=== PATIENT | male | born 1940 | race Caucasian/White ===

== ENCOUNTER 2017-08-05 16:16 | Inpatient (IN) | payer MEDICARE, OTHER ==
[2017-08-05] VITALS (8 sets, daily range): BP systolic 123–156; BP diastolic 55–71
[~2017-08-05] VITALS: Ht 190.5 cm; Wt 128.9 kg
[~2017-08-05 16:16] MED LIST: ATOR40TA PO; DOCU-109 PO; FENO134C PO; FENO135C PO; GLIM4TAB2 PO; LINA5TAB4 PO; LIPITOR80 MG PO; OLME1TAB23 PO; Oxycodone Hcl/Acetaminophen PO; PIOG30TA41 PO
[2017-08-05] MEDS ORDERED: IV NORMAL SALINE 1000ML BAG 1,000 ML IV SCH ×2 (16:55→18:06)
[2017-08-05] MEDS ORDERED: methylPREDNISolone SOD SUCC PF 125 MG/2 ML VIAL. IV ONE (17:00)
[2017-08-05] MEDS ORDERED: ACETAMINOPHEN 325 MG TABLET. PO ONE (17:00)
[2017-08-05] MEDS ORDERED: 0.9 % SODIUM CHLORIDE 10 ML DISP.SYRIN. IV ONE (17:00)
[2017-08-05] MEDS ORDERED: AZITHROMYCIN 500 MG in IV NORMAL SALINE 250ML 250 ML IV ONE (17:00)
[2017-08-05] MEDS ORDERED: IPRATRPIUM/ALBUTEROL 0.5/2.5MG 3 ML NEBU. NEB ONE (17:00)
[2017-08-05 17:14] LABS: BASO # 0.1 x10^3/uL (0.0-0.2); BASO % 1 % (0-3); EOS % 1 % (0-3); HEMATOCRIT 25.1 % (39.0-53.0); HEMOGLOBIN 8.4 g/dL (13.0-17.5); LYMPH # 0.8 x10^3/uL (1.0-4.8); LYMPH % 6 % (24-48); MEAN CORPUSCULAR HEMOGLOBIN 31 pg (25-35); MEAN CORPUSCULAR HGB CONC 33 g/dL (31-37); MEAN CORPUSCULAR VOLUME 94 fL (79-100); MONO % 7 % (0-9); NEUT % 86 % (31-73); PLATELET COUNT 405 x10^3/uL (140-400); RED BLOOD COUNT 2.68 x10^6/uL (4.30-5.70); WHITE BLOOD COUNT 12.6 x10^3/uL (4.0-11.0)
[2017-08-05] MEDS ORDERED: AZITHRMYCN 500MG IVPB FOR OMNI 250 ML IV ONE (17:15)
[2017-08-05 17:19] LABS: BILIRUBIN,URINE SMALL (NEG); GLUCOSE,URINE NEGATIVE (NEG); NITRITE,URINE NEGATIVE (NEG); PROTEIN,URINE 100 mg/dL (NEG-TRACE)
[2017-08-05 17:29] LABS: CALCIUM 8.4 mg/dL (8.5-10.1); CREATININE 2.6 mg/dL (0.7-1.3); POTASSIUM 5.8 mmol/L (3.5-5.1)
[2017-08-05 17:38] LABS: ALBUMIN 1.6 g/dL (3.4-5.0); DIRECT BILIRUBIN 0.4 mg/dL (0.0-0.2); MAGNESIUM 2.8 mg/dL (1.8-2.4); TOTAL BILIRUBIN 1.1 mg/dL (0.2-1.0); TOTAL PROTEIN 6.5 g/dL (6.4-8.2)
[2017-08-05 17:42] LABS: % EOS 1 % (0-5); CREATINE KINASE 122 U/L (39-308); PLT ESTIMATE ADEQUATE (ADEQUATE)
[2017-08-05 17:42] LABS: BACTERIA,URINE FEW /HPF (0-FEW); RBC,URINE >40 /HPF (0-2); WBC,URINE OCC /HPF (0-4)
[2017-08-05 17:43] LABS: ANISOCYTOSIS SLIGHT; HYPOCHROMIA SLIGHT; TOXIC GRANULATION SLIGHT
[2017-08-05 17:48] LABS: CKMB MASS < 0.5 ng/mL (0.0-3.6)
--- NOTE | 2017-08-05 17:49 | PHYS DOC ---
Past Medical History Past Medical History: A-Fib, CHF, Diabetes-Type II, High Cholesterol, Hypertension, Renal Failure Additional Past Medical Histor: right shoulder dislocation Past Surgical History: Appendectomy, Other Additional Past Surgical Histo: right shoulder surgery, hernia repair x 2 Alcohol Use: None Drug Use: None Adult General Chief Complaint Chief Complaint: SHORTNESS OF BREATH [facility] HPI Patient is a pleasant 76-year-old gentleman with history of, and chronic systolic and diastolic congestive [place], acute renal failure after an unspecified fall, hyperlipidemia, hypertension, prior shoulder dislocation of the right, or excisional age or fibrillation, diabetes, was seen and admitted to our facility for pain management after a fall down 12 steps. He was recently transferred to help her sort of [place] sniff, when today he began having increasing respiratory distress and they did a chest x-ray diagnosed him with a right lower lobe pneumonia. He denies any chest pain only increased shortness of breath with a low-grade subjective fever, productive cough. He denies any difficulty swallowing, change in voice, he just feels hot and fatigue. He denies any abdominal pain, increasing swelling of his lower legs, he is having some aches and pains in his back after his fall and transfers with movements. Review of Systems Review of Systems Constitutional: He has had fevers and chills. Eyes: Denies change in visual acuity, redness, or eye pain [] HENT: He has had nasal congestion and mild sore throat with cough. Respiratory: He has had productive cough or shortness of breath Cardiovascular: No additional information not addressed in HPI [] GI: Denies abdominal pain, nausea, vomiting, bloody stools or diarrhea [] : Denies dysuria or hematuria [] Musculoskeletal: She has chronic lower back pain and bilateral lower joint pain and ankles knees after the fall. Integument: Denies rash or skin lesions [] Neurologic: Denies headache, focal weakness or sensory changes [] Current Medications Current Medications Current Medications Medications (Trade) Dose Ordered Sig/Meghana Start Time Stop Time Status Last Admin Dose Admin Acetaminophen (Tylenol) 650 mg 1X ONCE 08/05/17 17:00 08/05/17 17:01 DC 08/05/17 17:27 650 MG Albuterol/ Ipratropium (Duoneb) 3 ml 1X ONCE 08/05/17 17:00 08/05/17 17:01 DC 08/05/17 17:17 3 ML Azithromycin 250 ml @ 250 mls/hr 1X ONCE 08/05/17 17:15 08/05/17 18:14 Azithromycin 500 mg/Sodium Chloride 250 ml @ 250 mls/hr 1X ONCE 08/05/17 17:00 08/05/17 17:59 UNV Ceftriaxone Sodium 1 gm/ Sodium Chloride 50 ml @ 100 mls/hr 1X ONCE 08/05/17 17:00 08/05/17 17:29 UNV Ceftriaxone Sodium 50 ml @ 100 mls/hr 1X ONCE 08/05/17 17:15 08/05/17 17:44 DC 08/05/17 17:30 100 MLS/HR Methylprednisolone Sodium Succinate (SOLU-Medrol 125MG VIAL) 125 mg 1X ONCE 08/05/17 17:00 08/05/17 17:01 DC 08/05/17 17:25 125 MG Sodium Chloride 1,000 ml @ 1,000 mls/hr Q1H 08/05/17 16:55 08/05/17 17:54 DC 08/05/17 17:22 1,000 MLS/HR Sodium Chloride (Normal Saline Flush) 10 ml 1X ONCE 08/05/17 17:00 08/05/17 17:01 DC Allergies Allergies Allergies Coded Allergies Type Severity Reaction Last Updated Verified simvastatin Allergy Severe mouth swelling 04/14/14 Yes sitagliptin phosphate Allergy Severe renal dysfunction 04/14/14 Yes Physical Exam Physical Exam Vital signs recorded on the chart patient noted to be hypertensive, tachypnea, hypoxic at 81 on room air 95 on 5 L nasal cannula's Constitutional: She is obese but well-nourished in moderate distress with mild to moderate tachypnea no diaphoresis. HENT: Normocephalic, atraumatic, bilateral external ears normal, dry mucous membranes no oral exudates, nose normal. [] Eyes: PERRLA, EOMI, conjunctiva normal, no discharge. [] Neck: Normal range of motion, no tenderness, supple, no stridor. [] Cardiovascular: Patient is mildly tachycardic Murmurs gallops or rubs. Lungs & Thorax: She has decreased breath sounds right lower base with coarse rhonchi. Abdomen: Bowel sounds normal, soft, no tenderness, no masses, no pulsatile masses. [] Skin: Warm, dry, no erythema, no rash. [] Back: Unable to assess secondary discomfort Extremities: Tenderness throughout the lower extremities bilaterally secondary to contusions and abrasions. Neurologic: Alert and oriented X 3, normal motor function, normal sensory function, no focal deficits noted. [] Psychologic: Affect normal, judgement normal, mood normal. [] Current Patient Data Vital Signs Vital Signs Date Time Temp Pulse Resp B/P (MAP) Pulse Ox O2 Delivery O2 Flow Rate FiO2 08/05/17 17:18 97 Nasal Cannula 5.0 08/05/17 17:09 69 36 131/61 (84) 08/05/17 16:32 99.8 99.8 Lab Values Laboratory Tests Test 08/05/17 17:05 08/05/17 17:10 White Blood Count 12.6 x10^3/uL (4.0-11.0) H Red Blood Count 2.68 x10^6/uL (4.30-5.70) L Hemoglobin 8.4 g/dL (13.0-17.5) L Hematocrit 25.1 % (39.0-53.0) L Mean Corpuscular Volume 94 fL (79-100) Mean Corpuscular Hemoglobin 31 pg (25-35) Mean Corpuscular Hemoglobin Concent 33 g/dL (31-37) Red Cell Distribution Width 15.0 % (11.5-14.5) H Platelet Count 405 x10^3/uL (140-400) H Neutrophils (%) (Auto) 86 % (31-73) H Lymphocytes (%) (Auto) 6 % (24-48) L Monocytes (%) (Auto) 7 % (0-9) Eosinophils (%) (Auto) 1 % (0-3) Basophils (%) (Auto) 1 % (0-3) Neutrophils # (Auto) 10.9 x10^3uL (1.8-7.7) H Lymphocytes # (Auto) 0.8 x10^3/uL (1.0-4.8) L Monocytes # (Auto) 0.8 x10^3/uL (0.0-1.1) Eosinophils # (Auto) 0.1 x10^3/uL (0.0-0.7) Basophils # (Auto) 0.1 x10^3/uL (0.0-0.2) Segmented Neutrophils % 86 % (35-66) H Band Neutrophils % 3 % (0-9) Lymphocytes % 4 % (24-48) L Monocytes % 5 % (0-10) Eosinophils % 1 % (0-5) Myelocytes % 1 % (0-0) H Toxic Granulation Slight Platelet Estimate Adequate (ADEQUATE) Hypochromasia Slight Anisocytosis Slight Sodium Level 138 mmol/L (136-145) Potassium Level 5.8 mmol/L (3.5-5.1) H Chloride Level 101 mmol/L (98-107) Carbon Dioxide Level 34 mmol/L (21-32) H Anion Gap 3 (6-14) L Blood Urea Nitrogen 120 mg/dL (8-26) H Creatinine 2.6 mg/dL (0.7-1.3) H Estimated GFR (Cockcroft-Gault) 24.0 Glucose Level 259 mg/dL (70-99) H Lactic Acid Level 1.8 mmol/L (0.4-2.0) Calcium Level 8.4 mg/dL (8.5-10.1) L Magnesium Level 2.8 mg/dL (1.8-2.4) H Total Bilirubin 1.1 mg/dL (0.2-1.0) H Direct Bilirubin 0.4 mg/dL (0.0-0.2) H Aspartate Amino Transferase (AST) 45 U/L (15-37) H Alanine Aminotransferase (ALT) 26 U/L (16-63) Alkaline Phosphatase 76 U/L (46-116) Creatine Kinase 122 U/L (39-308) Creatine Kinase MB (Mass) < 0.5 ng/mL (0.0-3.6) Creatine Kinase MB Relative Index 0.4 % (0-4) Troponin I Quantitative 0.038 ng/mL (0.000-0.055) TG-Kob-E-Type Natriuretic Peptide 5157 pg/mL (0-449) H Total Protein 6.5 g/dL (6.4-8.2) Albumin 1.6 g/dL (3.4-5.0) L Lipase 160 U/L (73-393) Thyroid Stimulating Hormone (TSH) 3.670 uIU/mL (0.358-3.74) Urine Collection Type U cath Urine Color [place] Urine Clarity Turbid Urine pH 5.0 Urine Specific [place] 1.020 Urine Protein 100 mg/dL (NEG-TRACE) Urine Glucose (UA) Negative mg/dL (NEG) Urine Ketones (Stick) Negative mg/dL (NEG) Urine Blood Large (NEG) Urine Nitrite Negative (NEG) Urine Bilirubin Small (NEG) Urine Urobilinogen Dipstick 1.0 mg/dL (0.2 mg/dL) Urine Leukocyte Esterase Small (NEG) Urine RBC >40 /HPF (0-2) Urine WBC Occ /HPF (0-4) Urine Amorphous Sediment Present /HPF Urine Bacteria Few /HPF (0-FEW) Urine Hyaline Casts Moderate /HPF Laboratory Tests 08/05/17 17:05 Laboratory Tests 08/05/17 17:05 EKG EKG []EKG timed 1656 demonstrates P Aliza QRS normal sinus rhythm. Interval is probably about 180 ms there is with 90 QTC is 477 which is mildly elongated patient is low voltage throughout no inconsistent with acute hyperkalemia or no obvious peaked T's. Radiology/Procedures Radiology/Procedures []AP upright chest film demonstrates patchy infiltrate in the left lower base right lower base and some mild cephalization. The concern is actually for both congestive heart failure and possible pulmonary infiltrate. Get an elevated white count subjective fevers and chills and dyspnea I believe this is an infectious etiology. Course & Med Decision Making Course & Med Decision Making Pertinent Labs and Imaging studies reviewed. (See chart for details) Differential diagnosis: Acute myocardial ischemia, heart failure, cardiac tamponade, bronchospasm, pulmonary embolism, pneumothorax, pulmonary infection i.e. bronchitis or pneumonia, upper airway obstruction, anaphylaxis, aspiration , psychogenic, pulmonary contusion, toxidrome, pneumomediastinum, noncardiogenic pulmonary edema or ARDS, COPD, tuberculosis, cystic fibrosis, asthma, high altitude pulmonary edema, valvular dysfunction, cardiac dysrhythmia , stroke, neuromuscular diseases like myasthenia gravis gravis, ALS, Guillain- Mitchell syndrome, metabolic acidosis to include diabetic ketoacidosis, sepsis, and obstructive disorders like massive obesity was considered upon arrival based on history of fever productive cough and recent hospitalization. As well as diagnosis of pneumonia on chest x-ray from prior evaluation I believe the patient is suffering from increased hypoxia secondary to that. The concern is patient's been immobile secondary to trauma or last days this puts him at increased risk for DVT and PE in the lungs. Patient unfortunately has a history of congestive heart failure. Given the fact that his had history of heart failure and fluid overload at this time I will give him fluids and put him in the ICU to closely monitor his clinical status to ensure that he does not need to be intubated emergently secondary to hypoxia secondary to fluid overload. In the interim patient will receive IV antibiotics and antiemetics appropriate for pneumonia. She will be admitted to the ICU for close cardiology evaluation and pulmonary evaluation. Patient fallen 2 weeks ago as been debilitated since. His sons are at bedside and I discussed symptoms of my concerns and plan for admission. Time is now 5:30 since the patient has improved with DuoNeb secured in the emergency for him as well as Solu-Medrol fluids 1 L and antibiotics. My concern again is congestive heart failure. Patient's hypoxia and dyspnea have improved significantly with fluids antiemetics and treatments provided already. Patient is ready gotten blood cultures done and a boxer on board and patient's lactic acid 1.8. I will continue to hydrate this patient with not only her fluids here in the emergency department the intent is to give him 3 L of fluid over 7 hours. And watch his clinical which very closely for signs of increasing hypoxia work of breathing in the ICU. We will consult pulmonology as well as cardiology to help manage his fluids and antibiotics to ensure that we do not overwhelm his cardiac ability to handle the fluid load. The patient is hyperkalemic with a potassium of 5.8 there are no EKG changes concerning for hyperkalemia. Given fluids over the next 2 hours patient's potassium should be diluted and we will repeat it in approximately 3 hours. Patient will be also given a small dose of Lasix to help promote more fluid mobilization. [] Spa Concierge note:Dr. richardson Spa Concierge called at of the service 5:32 PM Consult called back at Discussed the case I presented and they agreed with admission. Time of acceptance at 5:32 pm "I have assessed this patient clinically and believe that their condition requires an admission to the hospital. After consulting the admitting physician about this case, they have asked that I admit this patient to their service as an inpatient based on the clinical presentation and my impression." Critical Care: The high probability of sudden, clinically significant deterioration in the patient's condition required the highest level of my preparedness to intervene urgently. The services I provided to this patient were to treat and/or prevent clinically significant deterioration. Services included the following: chart data review, reviewing nursing notes and/or old charts, documentation time, treasury management sales consultant collaboration regarding findings and treatment options, medication orders and management, direct patient care, vital sign assessments and ordering, interpreting and reviewing diagnostic studies/ lab tests. Aggregate critical care time includes only time during which I was engaged in work directly related to the patient's care, as described above, whether at the bedside or elsewhere in the Emergency Department. It did not include time spent performing other reported procedures or the services of nurses or physician assistants. Dragon Disclaimer Dragon Disclaimer This electronic medical record was generated, in whole or in part, using a voice recognition dictation system. Departure Departure Impression: Primary Impression: Pneumonia Additional Impressions: Renal insufficiency Anemia Leukocytosis Dyspnea Fever Hyperkalemia Disposition: 09 ADMITTED INPATIENT Admitting Physician: Naty Richardson Condition: GUARDED Referrals: MATT AMBROSE (PCP) Problem Qualifiers STEWART CHARLES MD Aug 05, 2017 17:49
[2017-08-05] MEDS ORDERED: ONDANSETRON PF 4 MG/2 ML VIAL. IV PRN (18:15)
[2017-08-05] MEDS ORDERED: 0.9 % SODIUM CHLORIDE 10 ML DISP.SYRIN. IV PRN (18:15)
[2017-08-05] MEDS ORDERED: fentaNYL PF VIAL 100 MCG/2 ML VIAL IV PRN (18:15)
[2017-08-05] MEDS ORDERED: FUROSEMIDE 40 MG/4 ML VIAL. IVP ONE (18:15)
[2017-08-05] MEDS ORDERED: ACETAMINOPHEN 325 MG TABLET. PO PRN (18:15)
--- NOTE | 2017-08-05 18:49 | EKG ---
[facility] [address] [place] [address] Test Date: 2017-08-05 Test Time: 16:56:47 Pat Name: JANE FRANCO Department: Room: Gender: M Health Policy Nurse: : 1940 Requested By: STEWART CHARLES Order Number: [id number] Reading MD: Measurements Intervals [place] Rate: 68 P: SD: QRS: -20 QRSD: 90 T: 63 QT: 444 QTc: 477 Interpretive Statements IRREGULAR RHYTHM, NO P-WAVE FOUND LEFTWARD AXIS R-S TRANSITION ZONE IN V LEADS DISPLACED TO THE LEFT S1,S2,S3 PATTERN PROLONGED QT NO SPECIFIC ECG ABNORMALITIES RI6.01 No previous ECG available for comparison
[2017-08-05 18:51] LABS: OBC FLU VALID
--- NOTE | 2017-08-05 22:18 | RAD ---
NUCLEAR MEDICINE VENTILATION PERFUSION SCAN History: Shortness of air with recent trauma. Comparison: AP chest, earlier same day. Technique: Ventilation portion performed after inhalation of 18 mCi xenon-133 gas. Anterior and posterior projection initial breath-hold, equilibrium, and washout phase images acquired. Perfusion portion performed after intravenous administration of 5 mCi Technetium 99m MAA. Multiple projection planar images of the lungs were obtained. Findings: Ventilation images are relatively homogeneous. Air trapping is seen in the left lung on the washout phase images. At the beginning of perfusion imaging, patient acutely desaturated and imaging was discontinued and patient was returned to the ICU. A single anterior projection perfusion image is acquired. Therefore perfusion imaging is extremely limited. On the anterior projection, no obvious mismatched defect is identified. IMPRESSION: 1. Limited exam due to termination of perfusion imaging. On single anterior projection perfusion image, an obvious mismatch perfusion defect is not seen. 2. There is evidence of air trapping in the left lung. Electronically signed by: Hesham Fleming MD (08/05/2017 10:15 PM) [id number]
[2017-08-05] MEDS ORDERED: VANCOMYCIN PER PHARMACY MC PRN (23:00)
[2017-08-05] MEDS ORDERED: POLYETHYLENE GLYCOL 3350 17 GM PACKET. PO PRN (23:00)
[2017-08-05] MEDS ORDERED: PIP/TAZO PER PHARMACY MC PRN (23:00)
[2017-08-05] MEDS ORDERED: DOCUSATE SODIUM 100 MG CAPSULE. PO PRN (23:00)
--- NOTE | 2017-08-05 23:00 | PDOC1 ---
History and Physical Date of Admission Date of Admission DATE: 08/05/17 TIME: 22:48 Identification/Chief Complaint Chief Complaint pneumonia Problems: Source Source: Chart review, Patient History of Present Illness History of Present Illness Mr. Watkins is a pleasant 76-year-old gentleman recent discharge from our facility for pain management after a fall down 12 steps. he has been at [facility], and brought to ER today, increasing respiratory distress. Acute hypoxia and tachypnea that he did not have before. CXR showed new right lower lobe pneumonia. marked fatigue and weakness today, cannot sit up full, hot and tired. He has slight cough, does feel dyspneic and has new hypoxia, on Past Medical History Past Medical History chronic systolic and diastolic congestive heart, acute renal failure after an unspecified fall, hyperlipidemia, hypertension, prior shoulder dislocation of the right, atrial fibrillation, diabetes, Cardiovascular: HTN, Hyperlipidemia Pulmonary: No pertinent hx CENTRAL NERVOUS SYSTEM: Other GI: No pertinent hx Heme/Onc: Cancer Hepatobiliary: No pertinent hx Psych: No pertinent hx Musculoskeletal: Osteoarthritis Rheumatologic: No pertinent hx Infectious disease: No pertinent hx Renal/: Prostate Ca. 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 Family History: Diabetes Social History Smoke: No ALCOHOL: none Drugs: None Current Problem List Problem List Problems Medical Problems: (1) Anemia Status: Acute (2) Dyspnea Status: Acute (3) Fever Status: Acute (4) Hyperkalemia Status: Acute (5) Leukocytosis Status: Acute (6) Renal insufficiency Status: Acute Problems: Current Medications Current Medications Current Medications Sodium Chloride (Normal Saline Flush) 10 ml 1X ONCE IV ; Start 08/05/17 at 17: 00; Stop 08/05/17 at 17:01; Status DC Sodium Chloride 1,000 ml @ 1,000 mls/hr Q1H IV Last administered on t 17:22; Start 08/05/17 at 16:55; Stop 08/05/17 at 17:54; Status DC Albuterol/ Ipratropium (Duoneb) 3 ml 1X ONCE NEB Last administered on t 17:17; Start 08/05/17 at 17:00; Stop 08/05/17 at 17:01; Status DC Methylprednisolone Sodium Succinate (SOLU-Medrol 125MG VIAL) 125 mg 1X ONCE IV Last administered on 08/05/17 17:25; Start 08/05/17 at 17:00; Stop at 17:01; Status DC Acetaminophen (Tylenol) 650 mg 1X ONCE PO Last administered on 08/05/17 17: 27; Start 08/05/17 at 17:00; Stop 08/05/17 at 17:01; Status DC Ceftriaxone Sodium 1 gm/ Sodium Chloride 50 ml @ 100 mls/hr 1X ONCE IV ; Start 08/05/17 at 17:00; Stop 08/05/17 at 17:29; Status UNV Azithromycin 500 mg/Sodium Chloride 250 ml @ 250 mls/hr 1X ONCE IV ; Start at 17:00; Stop 08/05/17 at 17:59; Status UNV Azithromycin 250 ml @ 250 mls/hr 1X ONCE IV Last administered on 08/05/17 18:53; Start 08/05/17 at 17:15; Stop 08/05/17 at 18:14; Status DC Ceftriaxone Sodium 50 ml @ 100 mls/hr 1X ONCE IV Last administered on 17:30; Start 08/05/17 at 17:15; Stop 08/05/17 at 17:44; Status DC Ondansetron HCl (Zofran) 4 mg PRN Q8HRS PRN IV NAUSEA/VOMITING; Start at 18:15; Stop 08/06/17 at 18:14 Fentanyl Citrate (Fentanyl 2ml Vial) 50 mcg PRN Q1HR PRN IV PAIN; Start at 18:15; Stop 08/06/17 at 18:14 Acetaminophen (Tylenol) 650 mg PRN Q4HRS PRN PO FEVER; Start 08/05/17 at 18:15 ; Stop 08/06/17 at 18:14 Furosemide (Lasix) 40 mg 1X ONCE IVP Last administered on 08/05/17 18:50; Start 08/05/17 at 18:15; Stop 08/05/17 at 18:16; Status DC Sodium Chloride 1,000 ml @ 1,000 mls/hr Q1H IV Last administered on 21:10; Start 08/05/17 at 18:06; Stop 08/05/17 at 19:05; Status DC Sodium Chloride (Normal Saline Flush) 10 ml QSHIFT PRN IV AFTER MEDS AND BLOOD DRAWS; Start 08/05/17 at 18:15 Enoxaparin Sodium (Lovenox 120mg Syringe) 120 mg 1X ONCE SQ Last administered on 08/05/17t 18:50; Start 08/05/17 at 18:30; Stop 08/05/17 at 18:31; Status DC Active Scripts Active Reported Lipitor (Atorvastatin Calcium) 80 Mg Tablet 80 Mg PO HS Trilipix (Fenofibric Acid (Choline)) 135 Mg Capsule.dr 135 Mg PO DAILY Tradjenta (Linagliptin) 5 Mg Tablet 5 Mg PO DAILY Actos (Pioglitazone Hcl) 30 Mg Tablet 30 Mg PO DAILY Benicar Hct 40-12.5 Mg Tablet (Olmesartan/Hydrochlorothiazide) 1 Each Tablet 1 Each PO DAILY Allergies Allergies: Coded Allergies: simvastatin (Verified Allergy, Severe, mouth swelling, 04/14/14) sitagliptin phosphate (Verified Allergy, Severe, renal dysfunction, ) ROS General: YES: Chills, Fatigue, Malaise PSYCHOLOGICAL ROS: No: Anxiety, Behavioral Disorder, Concentration difficultie , Decreased libido, Depression, Disorientation, Hallucinations, Hostility, Irritablity, Memory difficulties, Mood Swings, Obsessive thoughts, Other Eyes: No Blurry vision, No Decreased vision, No Double vision, No Dry eyes, No Eye Pain, No Itchy Eyes, No Loss of vision, No Photophobia, No Scotomata, No Uses contacts, No Uses glasses, No Other HEENT: YES: Heacaches, No: Visual Changes, Hearing change, Nasal congestion, Nasal discharge, Oral lesions, Sinus pain, Sore Throat, Epistaxis, Sneezing, Snoring, Tinnitus, Vertigo, Vocal changes, Other Respiratory: YES: Shortness of breath, Tachypnea, Other, No: Cough, Hemoptysis, Orthopnea, Pleuritic Pain, SOB with excertion, Sputum Changes, Stridor, Wheezing Cardiovascular: No Chest Pain, No Palpitations, No Orthopnea, No Paroxysmal Noc. Dyspnea, No Edema, No Lt Headedness, No Other Gastrointestinal: No Nausea, No Vomiting, No Abdominal Pain, No Diarrhea, No Constipation, No Melena, No Hematochezia, No Other Genitourinary: No Dysuria, No Frequency, No Incontinence, No Hematuria, No Retention, No Discharge, No Urgency, No Pain, No Flank Pain, No Other, No , No , No , No , No , No , No Musculoskeletal: Yes Gait Disturbance, Yes Joint Pain, Yes Joint Stiffness, Yes Joint Swelling, Yes Muscle Pain, No Muscular Weakness, No Pain In:, No Swelling In:, No Other Neurological: Yes Gait Disturbance, No Behavorial Changes, No Bowel/Bladder ControlChng, No Confusion, No Dizziness, No Headaches, No Impaired Coord/balance, No Memory Loss, No Numbness/ Tingling, No Seizures, No Speech Problems, No Tremors, No Visual Changes, No Weakness, No Other Skin: Yes Dry Skin, No Eczema, No Hair Changes, No Lumps, No Mole Changes, No Mottling, No Nail Changes, No Pruritus, No Rash, No Skin Lesion Changes, No Other, No Acne Physical Exam General: Alert, Oriented X3, Cooperative, mild distress HEENT: Atraumatic, Other (bleeding from an infected tooth RU molar) Lungs: Other (tachypnea, rales, limited vol due to pain) Heart: S1S2, no murmurs Abdomen: Normal bowel sounds, Soft (obese, no sounds) Extremities: No cyanosis, No edema, Normal pulses Skin: No rashes, No significant lesion Neuro: Normal speech, Normal tone, Cranial nerves 3-12 NL Psych/Mental Status: Mood NL Vitals Vitals Vital Signs Date Time Temp Pulse Resp B/P (MAP) Pulse Ox O2 Delivery O2 Flow Rate FiO2 08/05/17 22:20 98.3 58 27 142/70 (94) 95 Nasal Cannula 5.0 98.3 Labs Labs Laboratory Tests Test 08/05/17 17:05 08/05/17 17:10 08/05/17 18:10 08/05/17 20:00 White Blood Count 12.6 x10^3/uL (4.0-11.0) Red Blood Count 2.68 x10^6/uL (4.30-5.70) Hemoglobin 8.4 g/dL (13.0-17.5) Hematocrit 25.1 % (39.0-53.0) Mean Corpuscular Volume 94 fL (79-100) Mean Corpuscular Hemoglobin 31 pg (25-35) Mean Corpuscular Hemoglobin Concent 33 g/dL (31-37) Red Cell Distribution Width 15.0 % (11.5-14.5) Platelet Count 405 x10^3/uL (140-400) Neutrophils (%) (Auto) 86 % (31-73) Lymphocytes (%) (Auto) 6 % (24-48) Monocytes (%) (Auto) 7 % (0-9) Eosinophils (%) (Auto) 1 % (0-3) Basophils (%) (Auto) 1 % (0-3) Neutrophils # (Auto) 10.9 x10^3uL (1.8-7.7) Lymphocytes # (Auto) 0.8 x10^3/uL (1.0-4.8) Monocytes # (Auto) 0.8 x10^3/uL (0.0-1.1) Eosinophils # (Auto) 0.1 x10^3/uL (0.0-0.7) Basophils # (Auto) 0.1 x10^3/uL (0.0-0.2) Segmented Neutrophils % 86 % (35-66) Band Neutrophils % 3 % (0-9) Lymphocytes % 4 % (24-48) Monocytes % 5 % (0-10) Eosinophils % 1 % (0-5) Myelocytes % 1 % (0-0) Toxic Granulation Slight Platelet Estimate Adequate (ADEQUATE) Hypochromasia Slight Anisocytosis Slight Sodium Level 138 mmol/L (136-145) Potassium Level 5.8 mmol/L (3.5-5.1) Chloride Level 101 mmol/L (98-107) Carbon Dioxide Level 34 mmol/L (21-32) Anion Gap 3 (6-14) Blood Urea Nitrogen 120 mg/dL (8-26) Creatinine 2.6 mg/dL (0.7-1.3) Estimated GFR (Cockcroft-Gault) 24.0 Glucose Level 259 mg/dL (70-99) Lactic Acid Level 1.8 mmol/L (0.4-2.0) 1.0 mmol/L (0.4-2.0) Calcium Level 8.4 mg/dL (8.5-10.1) Magnesium Level 2.8 mg/dL (1.8-2.4) Total Bilirubin 1.1 mg/dL (0.2-1.0) Direct Bilirubin 0.4 mg/dL (0.0-0.2) Aspartate Amino Transf (AST/SGOT) 45 U/L (15-37) Alanine Aminotransferase (ALT/SGPT) 26 U/L (16-63) Alkaline Phosphatase 76 U/L (46-116) Creatine Kinase 122 U/L (39-308) Creatine Kinase MB (Mass) < 0.5 ng/mL (0.0-3.6) Creatine Kinase MB Relative Index 0.4 % (0-4) Troponin I Quantitative 0.038 ng/mL (0.000-0.055) KS-Ify-I-Type Natriuretic Peptide 5157 pg/mL (0-449) Total Protein 6.5 g/dL (6.4-8.2) Albumin 1.6 g/dL (3.4-5.0) Lipase 160 U/L (73-393) Thyroid Stimulating Hormone (TSH) 3.670 uIU/mL (0.358-3.74) Urine Collection Type U cath Urine Color [place] Urine Clarity Turbid Urine pH 5.0 Urine Specific [place] 1.020 Urine Protein 100 mg/dL (NEG-TRACE) Urine Glucose (UA) Negative mg/dL (NEG) Urine Ketones (Stick) Negative mg/dL (NEG) Urine Blood Large (NEG) Urine Nitrite Negative (NEG) Urine Bilirubin Small (NEG) Urine Urobilinogen Dipstick 1.0 mg/dL (0.2 mg/dL) Urine Leukocyte Esterase Small (NEG) Urine RBC >40 /HPF (0-2) Urine WBC Occ /HPF (0-4) Urine Amorphous Sediment Present /HPF Urine Bacteria Few /HPF (0-FEW) Urine Hyaline Casts Moderate /HPF Influenza Type A Antigen Negative (NEGATIVE) Influenza Type B Antigen Negative (NEGATIVE) Laboratory Tests Test 08/05/17 17:05 08/05/17 17:10 08/05/17 18:10 08/05/17 20:00 White Blood Count 12.6 x10^3/uL (4.0-11.0) Red Blood Count 2.68 x10^6/uL (4.30-5.70) Hemoglobin 8.4 g/dL (13.0-17.5) Hematocrit 25.1 % (39.0-53.0) Mean Corpuscular Volume 94 fL (79-100) Mean Corpuscular Hemoglobin 31 pg (25-35) Mean Corpuscular Hemoglobin Concent 33 g/dL (31-37) Red Cell Distribution Width 15.0 % (11.5-14.5) Platelet Count 405 x10^3/uL (140-400) Neutrophils (%) (Auto) 86 % (31-73) Lymphocytes (%) (Auto) 6 % (24-48) Monocytes (%) (Auto) 7 % (0-9) Eosinophils (%) (Auto) 1 % (0-3) Basophils (%) (Auto) 1 % (0-3) Neutrophils # (Auto) 10.9 x10^3uL (1.8-7.7) Lymphocytes # (Auto) 0.8 x10^3/uL (1.0-4.8) Monocytes # (Auto) 0.8 x10^3/uL (0.0-1.1) Eosinophils # (Auto) 0.1 x10^3/uL (0.0-0.7) Basophils # (Auto) 0.1 x10^3/uL (0.0-0.2) Segmented Neutrophils % 86 % (35-66) Band Neutrophils % 3 % (0-9) Lymphocytes % 4 % (24-48) Monocytes % 5 % (0-10) Eosinophils % 1 % (0-5) Myelocytes % 1 % (0-0) Toxic Granulation Slight Platelet Estimate Adequate (ADEQUATE) Hypochromasia Slight Anisocytosis Slight Sodium Level 138 mmol/L (136-145) Potassium Level 5.8 mmol/L (3.5-5.1) Chloride Level 101 mmol/L (98-107) Carbon Dioxide Level 34 mmol/L (21-32) Anion Gap 3 (6-14) Blood Urea Nitrogen 120 mg/dL (8-26) Creatinine 2.6 mg/dL (0.7-1.3) Estimated GFR (Cockcroft-Gault) 24.0 Glucose Level 259 mg/dL (70-99) Lactic Acid Level 1.8 mmol/L (0.4-2.0) 1.0 mmol/L (0.4-2.0) Calcium Level 8.4 mg/dL (8.5-10.1) Magnesium Level 2.8 mg/dL (1.8-2.4) Total Bilirubin 1.1 mg/dL (0.2-1.0) Direct Bilirubin 0.4 mg/dL (0.0-0.2) Aspartate Amino Transf (AST/SGOT) 45 U/L (15-37) Alanine Aminotransferase (ALT/SGPT) 26 U/L (16-63) Alkaline Phosphatase 76 U/L (46-116) Creatine Kinase 122 U/L (39-308) Creatine Kinase MB (Mass) < 0.5 ng/mL (0.0-3.6) Creatine Kinase MB Relative Index 0.4 % (0-4) Troponin I Quantitative 0.038 ng/mL (0.000-0.055) BB-Tck-H-Type Natriuretic Peptide 5157 pg/mL (0-449) Total Protein 6.5 g/dL (6.4-8.2) Albumin 1.6 g/dL (3.4-5.0) Lipase 160 U/L (73-393) Thyroid Stimulating Hormone (TSH) 3.670 uIU/mL (0.358-3.74) Urine Collection Type U cath Urine Color [place] Urine Clarity Turbid Urine pH 5.0 Urine Specific [place] 1.020 Urine Protein 100 mg/dL (NEG-TRACE) Urine Glucose (UA) Negative mg/dL (NEG) Urine Ketones (Stick) Negative mg/dL (NEG) Urine Blood Large (NEG) Urine Nitrite Negative (NEG) Urine Bilirubin Small (NEG) Urine Urobilinogen Dipstick 1.0 mg/dL (0.2 mg/dL) Urine Leukocyte Esterase Small (NEG) Urine RBC >40 /HPF (0-2) Urine WBC Occ /HPF (0-4) Urine Amorphous Sediment Present /HPF Urine Bacteria Few /HPF (0-FEW) Urine Hyaline Casts Moderate /HPF Influenza Type A Antigen Negative (NEGATIVE) Influenza Type B Antigen Negative (NEGATIVE) VTE Prophylaxis Ordered VTE Prophylaxis Devices: No VTE Pharmacological Prophylaxi: Yes Assessment/Plan Assessment/Plan sepsis w. acute organ dysfunction only related to present infection, pneumonia pneumonia, HCAP tachypnea from pneumonia and hypoxic respiratory failure, consult PULM CHF, chronic systolic and diastolic failure, caution with fluids, 2 liters NS ordered, HR now < 60 consutl CV obesity BMI 37 recent fall and bilat shoulder injury, weakness and debility atrial fib shoulder pain bilat, recent dislocation consult physiatry PT and OT and speech TRUPTI FINE MD Aug 05, 2017 23:00
[2017-08-05] MEDS ORDERED: VANCOMYCIN 2 GM in IV NORMAL SALINE 500ML BAG 500 ML IV ONE (23:30)
[2017-08-06] VITALS (24 sets, daily range): BP systolic 94–154; BP diastolic 39–71
[2017-08-06] MEDS: PIPERACILLIN/TAZOBACTAM 3.375 GM in IV NORMAL SALINE 50ML 50 ML IV SCH ×5 (02:10→23:40)
[2017-08-06] MEDS ORDERED: FURO-68 PO (03:16)
[2017-08-06] MEDS ORDERED: METO2.5T PO (03:16)
[2017-08-06] MEDS ORDERED: POTASSIUM CHLO10 MEQ PO (03:16)
[2017-08-06] MEDS ORDERED: HYDR-963 PO (03:16)
[2017-08-06] MEDS ORDERED: CARB15DR72 OT (03:16)
[2017-08-06] MEDS ORDERED: AMIO200T2 PO (03:16)
[2017-08-06] MEDS ORDERED: LUBI24CA7 PO (03:16)
[2017-08-06] MEDS ORDERED: MAGN400O7 PO (03:16)
[2017-08-06] MEDS ORDERED: INSU100I11 SQ (03:16)
[2017-08-06] MEDS ORDERED: NA P133E2 RC (03:16)
[2017-08-06] MEDS ORDERED: LINA5TAB4 PO (03:16)
[2017-08-06] MEDS ORDERED: ACET500T68 PO (03:16)
[2017-08-06] MEDS ORDERED: FENO135C PO (03:16)
[2017-08-06] MEDS ORDERED: FAMO20TA5 PO (03:16)
[2017-08-06] MEDS ORDERED: PIOG30TA41 PO (03:16)
[2017-08-06] MEDS ORDERED: BENZ200C47 PO (03:16)
[2017-08-06] MEDS ORDERED: IPRA3AMP NEB (03:16)
[2017-08-06] MEDS ORDERED: SENN1TAB21 PO (03:16)
[2017-08-06] MEDS ORDERED: CHOL2000 PO (03:16)
[2017-08-06] MEDS ORDERED: FURO40TA4 PO (03:16)
[2017-08-06] MEDS ORDERED: BISA10SU55 RC (03:16)
[2017-08-06] MEDS ORDERED: HYDR-2867 PO (03:16)
[2017-08-06] MEDS ORDERED: SACU1TAB PO (03:16)
[2017-08-06] MEDS ORDERED: FLUT16SP NS (03:16)
[2017-08-06] MEDS ORDERED: FERR-26 PO (03:16)
[2017-08-06] MEDS ORDERED: APIX5TAB PO (03:16)
[2017-08-06] MEDS ORDERED: CARB-116 OT (03:16)
[2017-08-06 06:30] LABS: BASO % 0 % (0-3); EOS % 0 % (0-3); HEMATOCRIT 22.3 % (39.0-53.0); HEMOGLOBIN 7.3 g/dL (13.0-17.5); LYMPH # 0.4 x10^3/uL (1.0-4.8); LYMPH % 6 % (24-48); MEAN CORPUSCULAR HEMOGLOBIN 31 pg (25-35); MEAN CORPUSCULAR HGB CONC 33 g/dL (31-37); MEAN CORPUSCULAR VOLUME 94 fL (79-100); MONO % 1 % (0-9); NEUT % 93 % (31-73); PLATELET COUNT 330 x10^3/uL (140-400); RED BLOOD COUNT 2.37 x10^6/uL (4.30-5.70); RED CELL DISTRIBUTION WIDTH 14.7 % (11.5-14.5); WHITE BLOOD COUNT 7.4 x10^3/uL (4.0-11.0)
[2017-08-06 06:51] LABS: ALBUMIN 1.5 g/dL (3.4-5.0); ALBUMIN/GLOBULIN RATIO 0.4 (1.0-1.7); CALCIUM 7.8 mg/dL (8.5-10.1); CREATININE 2.4 mg/dL (0.7-1.3); GFR 26.3; POTASSIUM 5.1 mmol/L (3.5-5.1); TOTAL BILIRUBIN 0.8 mg/dL (0.2-1.0); TOTAL PROTEIN 5.4 g/dL (6.4-8.2)
[2017-08-06] MEDS: DOCUSATE SODIUM 100 MG CAPSULE. PO SCH (07:56)
[2017-08-06] MEDS: POLYETHYLENE GLYCOL 3350 17 GM PACKET. PO SCH (07:56)
[2017-08-06] MEDS ORDERED: FUROSEMIDE 40 MG/4 ML VIAL. IVP ONE ×2 (08:00→14:00)
--- NOTE | 2017-08-06 08:01 | PDOC ---
Infectious Disease Note ROS ROS Vital Sign Vital Signs Vital Signs Date Time Temp Pulse Resp B/P (MAP) Pulse Ox O2 Delivery O2 Flow Rate FiO2 08/06/17 06:00 72 34 116/46 (69) 93 Nasal Cannula 5.0 08/06/17 05:00 98.7 98.7 Labs Lab Laboratory Tests Test 08/05/17 17:05 08/05/17 17:10 08/05/17 18:10 08/05/17 20:00 White Blood Count 12.6 x10^3/uL (4.0-11.0) Red Blood Count 2.68 x10^6/uL (4.30-5.70) Hemoglobin 8.4 g/dL (13.0-17.5) Hematocrit 25.1 % (39.0-53.0) Mean Corpuscular Volume 94 fL (79-100) Mean Corpuscular Hemoglobin 31 pg (25-35) Mean Corpuscular Hemoglobin Concent 33 g/dL (31-37) Red Cell Distribution Width 15.0 % (11.5-14.5) Platelet Count 405 x10^3/uL (140-400) Neutrophils (%) (Auto) 86 % (31-73) Lymphocytes (%) (Auto) 6 % (24-48) Monocytes (%) (Auto) 7 % (0-9) Eosinophils (%) (Auto) 1 % (0-3) Basophils (%) (Auto) 1 % (0-3) Neutrophils # (Auto) 10.9 x10^3uL (1.8-7.7) Lymphocytes # (Auto) 0.8 x10^3/uL (1.0-4.8) Monocytes # (Auto) 0.8 x10^3/uL (0.0-1.1) Eosinophils # (Auto) 0.1 x10^3/uL (0.0-0.7) Basophils # (Auto) 0.1 x10^3/uL (0.0-0.2) Segmented Neutrophils % 86 % (35-66) Band Neutrophils % 3 % (0-9) Lymphocytes % 4 % (24-48) Monocytes % 5 % (0-10) Eosinophils % 1 % (0-5) Myelocytes % 1 % (0-0) Toxic Granulation Slight Platelet Estimate Adequate (ADEQUATE) Hypochromasia Slight Anisocytosis Slight Sodium Level 138 mmol/L (136-145) Potassium Level 5.8 mmol/L (3.5-5.1) Chloride Level 101 mmol/L (98-107) Carbon Dioxide Level 34 mmol/L (21-32) Anion Gap 3 (6-14) Blood Urea Nitrogen 120 mg/dL (8-26) Creatinine 2.6 mg/dL (0.7-1.3) Estimated GFR (Cockcroft-Gault) 24.0 Glucose Level 259 mg/dL (70-99) Lactic Acid Level 1.8 mmol/L (0.4-2.0) 1.0 mmol/L (0.4-2.0) Calcium Level 8.4 mg/dL (8.5-10.1) Magnesium Level 2.8 mg/dL (1.8-2.4) Total Bilirubin 1.1 mg/dL (0.2-1.0) Direct Bilirubin 0.4 mg/dL (0.0-0.2) Aspartate Amino Transf (AST/SGOT) 45 U/L (15-37) Alanine Aminotransferase (ALT/SGPT) 26 U/L (16-63) Alkaline Phosphatase 76 U/L (46-116) Creatine Kinase 122 U/L (39-308) Creatine Kinase MB (Mass) < 0.5 ng/mL (0.0-3.6) Creatine Kinase MB Relative Index 0.4 % (0-4) Troponin I Quantitative 0.038 ng/mL (0.000-0.055) KH-Afi-G-Type Natriuretic Peptide 5157 pg/mL (0-449) Total Protein 6.5 g/dL (6.4-8.2) Albumin 1.6 g/dL (3.4-5.0) Lipase 160 U/L (73-393) Thyroid Stimulating Hormone (TSH) 3.670 uIU/mL (0.358-3.74) Urine Collection Type U cath Urine Color [place] Urine Clarity Turbid Urine pH 5.0 Urine Specific [place] 1.020 Urine Protein 100 mg/dL (NEG-TRACE) Urine Glucose (UA) Negative mg/dL (NEG) Urine Ketones (Stick) Negative mg/dL (NEG) Urine Blood Large (NEG) Urine Nitrite Negative (NEG) Urine Bilirubin Small (NEG) Urine Urobilinogen Dipstick 1.0 mg/dL (0.2 mg/dL) Urine Leukocyte Esterase Small (NEG) Urine RBC >40 /HPF (0-2) Urine WBC Occ /HPF (0-4) Urine Amorphous Sediment Present /HPF Urine Bacteria Few /HPF (0-FEW) Urine Hyaline Casts Moderate /HPF Influenza Type A Antigen Negative (NEGATIVE) Influenza Type B Antigen Negative (NEGATIVE) Test 08/06/17 00:25 08/06/17 06:00 Troponin I Quantitative 0.036 ng/mL (0.000-0.055) 0.032 ng/mL (0.000-0.055) White Blood Count 7.4 x10^3/uL (4.0-11.0) Red Blood Count 2.37 x10^6/uL (4.30-5.70) Hemoglobin 7.3 g/dL (13.0-17.5) Hematocrit 22.3 % (39.0-53.0) Mean Corpuscular Volume 94 fL (79-100) Mean Corpuscular Hemoglobin 31 pg (25-35) Mean Corpuscular Hemoglobin Concent 33 g/dL (31-37) Red Cell Distribution Width 14.7 % (11.5-14.5) Platelet Count 330 x10^3/uL (140-400) Neutrophils (%) (Auto) 93 % (31-73) Lymphocytes (%) (Auto) 6 % (24-48) Monocytes (%) (Auto) 1 % (0-9) Eosinophils (%) (Auto) 0 % (0-3) Basophils (%) (Auto) 0 % (0-3) Neutrophils # (Auto) 6.9 x10^3uL (1.8-7.7) Lymphocytes # (Auto) 0.4 x10^3/uL (1.0-4.8) Monocytes # (Auto) 0.1 x10^3/uL (0.0-1.1) Eosinophils # (Auto) 0.0 x10^3/uL (0.0-0.7) Basophils # (Auto) 0.0 x10^3/uL (0.0-0.2) Sodium Level 142 mmol/L (136-145) Potassium Level 5.1 mmol/L (3.5-5.1) Chloride Level 104 mmol/L (98-107) Carbon Dioxide Level 32 mmol/L (21-32) Anion Gap 6 (6-14) Blood Urea Nitrogen 125 mg/dL (8-26) Creatinine 2.4 mg/dL (0.7-1.3) Estimated GFR (Cockcroft-Gault) 26.3 BUN/Creatinine Ratio 52 (6-20) Glucose Level 250 mg/dL (70-99) Calcium Level 7.8 mg/dL (8.5-10.1) Total Bilirubin 0.8 mg/dL (0.2-1.0) Aspartate Amino Transf (AST/SGOT) 30 U/L (15-37) Alanine Aminotransferase (ALT/SGPT) 22 U/L (16-63) Alkaline Phosphatase 68 U/L (46-116) Total Protein 5.4 g/dL (6.4-8.2) Albumin 1.5 g/dL (3.4-5.0) Albumin/Globulin Ratio 0.4 (1.0-1.7) Objective Assessment Leukocytosis POA now s/p solumedrol times one ? HCAP Anemia with uremia CHF with tachypnea AMY Afib Plan Plan of Care D/c Vanc Add zyvox Add Procalcitonin Cont Zosyn hold further atypical coverage F/u labs and cults Dose Lasix times one now based on CXR and tachypnea May need PRBC Await Cardiology eval D/w [facility] micro and no + cults Thank you # [id number] EDIS BREWER MD Aug 06, 2017 08:01
--- NOTE | 2017-08-06 08:26 | RAD ---
Indication: Short of air for 3 days. Technique: Upright portable chest radiograph was obtained. Comparison is from April 15, 2014. Findings: Patient's chin obscures the upper left lung field. There is consolidation in the left lung base. The heart is enlarged. Pulmonary vasculature appears cephalized and interstitial lung markings increased. Impression: 1. Findings concerning for CHF. 2. Left pleural effusion with associated atelectasis and/ or infiltrate also suspected.
--- NOTE | 2017-08-06 08:55 | PDOC2 ---
CONSULT Date of Consult Date of Consult DATE: 08/06/17 TIME: 08:35 Reason for Consult Reason for Consult: AMY/ CKD IIi Referring Physician Referring Physician: Dr Richardson Identification/Chief Complaint Chief Complaint SOB Problems: Source Source: Chart review, Patient History of Present Illness Reason for Visit: as dictated Past Medical History Cardiovascular: AFIB, HTN, Hyperlipidemia Pulmonary: No pertinent hx CENTRAL NERVOUS SYSTEM: Other GI: No pertinent hx Heme/Onc: Cancer Hepatobiliary: No pertinent hx Psych: No pertinent hx Musculoskeletal: Osteoarthritis Rheumatologic: No pertinent hx Infectious disease: No pertinent hx Renal/: Chronic renal insuff, Prostate Ca. Endocrine: Diabetes Past Surgical History Past Surgical History: Appendectomy, Cataract Removal Family History Family History: Diabetes Social History No ALCOHOL: none Drugs: None Lives: with Family Domestic Violence: Neg Current Problem List Problem List Problems Medical Problems: (1) Anemia Status: Acute (2) Dyspnea Status: Acute (3) Fever Status: Acute (4) Hyperkalemia Status: Acute (5) Leukocytosis Status: Acute (6) Renal insufficiency Status: Acute Current Medications Current Medications Current Medications Sodium Chloride (Normal Saline Flush) 10 ml 1X ONCE IV Last administered on 08:01; Start 08/05/17 at 17:00; Stop 08/05/17 at 17:01; Status DC Sodium Chloride 1,000 ml @ 1,000 mls/hr Q1H IV Last administered on 17:22; Start 08/05/17 at 16:55; Stop 08/05/17 at 17:54; Status DC Albuterol/ Ipratropium (Duoneb) 3 ml 1X ONCE NEB Last administered on 17:17; Start 08/05/17 at 17:00; Stop 08/05/17 at 17:01; Status DC Methylprednisolone Sodium Succinate (SOLU-Medrol 125MG VIAL) 125 mg 1X ONCE IV Last administered on 08/05/17 17:25; Start 08/05/17 at 17:00; Stop at 17:01; Status DC Acetaminophen (Tylenol) 650 mg 1X ONCE PO Last administered on 08/05/17 17: 27; Start 08/05/17 at 17:00; Stop 08/05/17 at 17:01; Status DC Ceftriaxone Sodium 1 gm/ Sodium Chloride 50 ml @ 100 mls/hr 1X ONCE IV ; Start 08/05/17 at 17:00; Stop 08/05/17 at 17:29; Status UNV Azithromycin 500 mg/Sodium Chloride 250 ml @ 250 mls/hr 1X ONCE IV ; Start at 17:00; Stop 08/05/17 at 17:59; Status UNV Azithromycin 250 ml @ 250 mls/hr 1X ONCE IV Last administered on 08/05/17 18:53; Start 08/05/17 at 17:15; Stop 08/05/17 at 18:14; Status DC Ceftriaxone Sodium 50 ml @ 100 mls/hr 1X ONCE IV Last administered on 17:30; Start 08/05/17 at 17:15; Stop 08/05/17 at 17:44; Status DC Ondansetron HCl (Zofran) 4 mg PRN Q8HRS PRN IV NAUSEA/VOMITING; Start at 18:15; Stop 08/06/17 at 18:14 Fentanyl Citrate (Fentanyl 2ml Vial) 50 mcg PRN Q1HR PRN IV PAIN; Start at 18:15; Stop 08/06/17 at 18:14 Acetaminophen (Tylenol) 650 mg PRN Q4HRS PRN PO FEVER; Start 08/05/17 at 18:15 ; Stop 08/06/17 at 18:14 Furosemide (Lasix) 40 mg 1X ONCE IVP Last administered on 08/05/17 18:50; Start 08/05/17 at 18:15; Stop 08/05/17 at 18:16; Status DC Sodium Chloride 1,000 ml @ 1,000 mls/hr Q1H IV Last administered on 21:10; Start 08/05/17 at 18:06; Stop 08/05/17 at 19:05; Status DC Sodium Chloride (Normal Saline Flush) 10 ml QSHIFT PRN IV AFTER MEDS AND BLOOD DRAWS; Start 08/05/17 at 18:15 Enoxaparin Sodium (Lovenox 120mg Syringe) 120 mg 1X ONCE SQ Last administered on 08/05/17 18:50; Start 08/05/17 at 18:30; Stop 08/05/17 at 18:31; Status DC Docusate Sodium (Colace) 100 mg DAILY PO ; Start 08/06/17 at 09:00 Docusate Sodium (Colace) 100 mg PRN DAILY PRN PO CONSTIPATION; Start 08/05/17 at 23:00 Polyethylene Glycol (miraLAX PACKET) 17 gm DAILY PO ; Start 08/06/17 at 09:00 Polyethylene Glycol (miraLAX PACKET) 17 gm PRN DAILY PRN PO CONSTIPATION; Start 08/05/17 at 23:00 Piperacillin Sod/ Tazobactam Sod (Zosyn Per Pharmacy) 1 each PRN DAILY PRN MC SEE COMMENTS; Start 08/05/17 at 23:00; Stop 08/06/17 at 07:35; Status DC Vancomycin HCl (Vanco Per Pharmacy) 1 each PRN DAILY PRN MC SEE COMMENTS Last administered on 08/06/17 01:23; Start 08/05/17 at 23:00; Stop 08/06/17 at 08 :02; Status DC Vancomycin HCl 2 gm/Sodium Chloride 500 ml @ 250 mls/hr 1X ONCE IV Last administered on 08/05/17 23:26; Start 08/05/17 at 23:30; Stop 08/06/17 at 01 :29; Status DC Piperacillin Sod/ Tazobactam Sod 3.375 gm/Sodium Chloride 50 ml @ 100 mls/hr Q6HRS IV Last administered on 08/06/17 05:47; Start 08/06/17 at 00:00 Vancomycin HCl 2 gm/Sodium Chloride 500 ml @ 250 mls/hr Q24H IV ; Start at 23:00; Stop 08/06/17 at 23:00; Status DC Vancomycin HCl 1 each 1X ONCE MC ; Start 08/07/17 at 22:30; Stop 08/07/17 at 22:30; Status DC Furosemide (Lasix) 40 mg 1X ONCE IVP Last administered on 08/06/17 07:56; Start 08/06/17 at 08:00; Stop 08/06/17 at 08:01; Status DC Linezolid 300 ml @ 300 mls/hr Q12HR IV ; Start 08/06/17 at 09:00 Active Scripts Active Reported Tradjenta (Linagliptin) 5 Mg Tablet 5 Mg PO DAILY Senna Plus Tablet (Sennosides/Docusate Sodium) 1 Each Tablet 1 Each PO DAILY PRN Potassium Chloride 10 Meq Capsule.er 10 Meq PO DAILY Actos (Pioglitazone Hcl) 30 Mg Tablet 1 Tab PO DAILY [place] 10-325 Tablet (Acetaminophen/Hydrocodone Bitart) 1 Each Tablet 1 Tab PO PRN Q6HRS PRN Milk Of Magnesia (Magnesium Hydroxide) 400 Mg/5 Ml Oral.susp 30 Ml PO DAILY PRN Metolazone 2.5 Mg Tablet 2.5 Mg PO DAILY Amitiza (Lubiprostone) 24 Mcg Capsule 24 Mcg PO BID Lasix (Furosemide) 40 Mg Tablet 1 Tab PO DAILY Humalog (Insulin Lispro) 100 Unit/1 Ml Insuln.pen 100 Unit SQ QID inject as per sliding scale: if 151-200 = 3; 201-250 = 4; 251-200 = 6; 301-350 = 9; 351-400 = 12; 401+ = 12 and call physician; subq four times a day for DM Hydralazine Hcl 10 Mg Tablet 10 Mg PO QID Furosemide 40 Mg Tablet 40 Mg PO BID Fluticasone Propionate Nasal [place] (Fluticasone Propionate) 16 Gm [place].susp 2 [place] NS DAILY Fleet Enema (Na Phos,M-B/Na Phos,Di-Ba) 133 Ml Enema 118 Ml RC PRN PRN Ferrous Sulfate 325 Mg Tablet 325 Mg PO TID Trilipix (Fenofibric Acid (Choline)) 135 Mg Capsule.dr 135 Mg PO HS Famotidine 20 Mg Tablet 20 Mg PO BID Entresto 24 mg-26 mg Tablet (Sacubitril/Valsartan) 1 Each Tablet 1 Each PO DAILY Duoneb 0.5-3(2.5) Mg/3 Ml (Albuterol/Ipratropium) 3 Ml Ampul.neb 3 Ml NEB QID Dulcolax (Bisacodyl) 10 Mg Supp.rect 10 Mg RC PRN DAILY PRN Ear Wax Drops (Carbamide Peroxide) 15 Ml Drops 15 Ml OT INSTILL 5 DROPS IN BOTH EARS ONE TIME A DAY FOR CERUMEN IMPACTION FOR 4 DAYS. LEAVE IN EAR 5 MINUTES BEFORE TREATING OTHER EAR. Ear Drops (Carbamide Peroxide) 15 Ml Drops 15 Ml OT Vitamin D (Cholecalciferol (Vitamin D3)) 2,000 Unit Capsule 5,000 Unit PO DAILY Benzonatate 200 Mg Capsule 200 Mg PO TID Eliquis (Apixaban) 5 Mg Tablet 5 Mg PO BID Amiodarone Hcl 200 Mg Tablet 200 Mg PO DAILY Acetaminophen 500 Mg Tablet 650 Mg PO Q4HRS PRN Lipitor (Atorvastatin Calcium) 80 Mg Tablet 80 Mg PO HS Allergies Allergies: Coded Allergies: simvastatin (Verified Allergy, Severe, mouth swelling, 04/14/14) sitagliptin phosphate (Verified Allergy, Severe, renal dysfunction, ) ROS Review of System GEN: no Fevers no Chills EYES: no new Visual Complaints ENT: no EN Drainage no Hearing deficiets CVS: no Orthopnea no new CP RESP: min subj SOB ? MILLS (not ambulated) GI: no Nausea no Vomiting : no Dysuria no Urgency HEME: no easy bruising no Palp Ly Nodes NEURO no Focal Weakness no Sz PSYCH: no Suicidal Ideation on Depression SKIN: no Rashes Abrasions as noted ENDO: no Polyuria or Polydipsia no Hot/Cold Intolerance MU SK: + Arthraigia + Myalgia (Post fall) Physical Exam Physical Exam General Appearance: Awake Alert Oriented x 3 In min resp Distress Eyes: VIsion Unchanged Conjunctiva Normal EN: No EN Drainage Mucous Memb. moist Neck: no JVD min JVP Supple no Thyromegaly - thick neck CVS: S1 S2 no Murmur No Gallop No Rub + Edema Resp: no Rales no Rhonchi no Acc. Muscle use GI: BS +ve NO Bruit Non Tender Non Distended - obese : no CVA tenderness; no Suprapubic Tenderness SKIN: no Rashes multiple abrasions from previous fall Mu.Sk: dec ROM no Muscle Atrophy Heme: Unable to palpate Obvious LAD no Splenomegaly NEURO: adequate Strength and Tone Cranial Nerves II - XII grossly intact Psych: ? Depressed no Active hallucination Vital Signs Vital Signs Date Time Temp Pulse Resp B/P (MAP) Pulse Ox O2 Delivery O2 Flow Rate FiO2 08/06/17 07:00 71 33 140/66 (90) 92 Nasal Cannula 5.0 08/06/17 05:00 98.7 98.7 Assessment & Plan ARF ? 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 Will re-evaluate for Dialysis in am CKD III - Creat was down to 1.3 at [facility] once (fluid status NA then) - has been 1.8ish in Oct of this year. edema - much better then when I saw him at [facility] - suspect due to hypoAlb Sev HypoAlbuminemia - UA noted - Check Ratio ? CHF on CXR - BUN Creat ratio suggest pre-renal state vs ? GI BLeed Anemia: check Iron, May need Epogen Transfuse as needed. HTN: Current BP meds reviewed. See orders for changes. ^K OA - now better Hematuria - presumed due to h/o Pr Ca Discussed Plan of Care and prognosis Labs Labs Laboratory Tests Test 08/05/17 17:05 08/05/17 17:10 08/05/17 18:10 08/05/17 20:00 White Blood Count 12.6 x10^3/uL (4.0-11.0) Red Blood Count 2.68 x10^6/uL (4.30-5.70) Hemoglobin 8.4 g/dL (13.0-17.5) Hematocrit 25.1 % (39.0-53.0) Mean Corpuscular Volume 94 fL (79-100) Mean Corpuscular Hemoglobin 31 pg (25-35) Mean Corpuscular Hemoglobin Concent 33 g/dL (31-37) Red Cell Distribution Width 15.0 % (11.5-14.5) Platelet Count 405 x10^3/uL (140-400) Neutrophils (%) (Auto) 86 % (31-73) Lymphocytes (%) (Auto) 6 % (24-48) Monocytes (%) (Auto) 7 % (0-9) Eosinophils (%) (Auto) 1 % (0-3) Basophils (%) (Auto) 1 % (0-3) Neutrophils # (Auto) 10.9 x10^3uL (1.8-7.7) Lymphocytes # (Auto) 0.8 x10^3/uL (1.0-4.8) Monocytes # (Auto) 0.8 x10^3/uL (0.0-1.1) Eosinophils # (Auto) 0.1 x10^3/uL (0.0-0.7) Basophils # (Auto) 0.1 x10^3/uL (0.0-0.2) Segmented Neutrophils % 86 % (35-66) Band Neutrophils % 3 % (0-9) Lymphocytes % 4 % (24-48) Monocytes % 5 % (0-10) Eosinophils % 1 % (0-5) Myelocytes % 1 % (0-0) Toxic Granulation Slight Platelet Estimate Adequate (ADEQUATE) Hypochromasia Slight Anisocytosis Slight Sodium Level 138 mmol/L (136-145) Potassium Level 5.8 mmol/L (3.5-5.1) Chloride Level 101 mmol/L (98-107) Carbon Dioxide Level 34 mmol/L (21-32) Anion Gap 3 (6-14) Blood Urea Nitrogen 120 mg/dL (8-26) Creatinine 2.6 mg/dL (0.7-1.3) Estimated GFR (Cockcroft-Gault) 24.0 Glucose Level 259 mg/dL (70-99) Lactic Acid Level 1.8 mmol/L (0.4-2.0) 1.0 mmol/L (0.4-2.0) Calcium Level 8.4 mg/dL (8.5-10.1) Magnesium Level 2.8 mg/dL (1.8-2.4) Total Bilirubin 1.1 mg/dL (0.2-1.0) Direct Bilirubin 0.4 mg/dL (0.0-0.2) Aspartate Amino Transf (AST/SGOT) 45 U/L (15-37) Alanine Aminotransferase (ALT/SGPT) 26 U/L (16-63) Alkaline Phosphatase 76 U/L (46-116) Creatine Kinase 122 U/L (39-308) Creatine Kinase MB (Mass) < 0.5 ng/mL (0.0-3.6) Creatine Kinase MB Relative Index 0.4 % (0-4) Troponin I Quantitative 0.038 ng/mL (0.000-0.055) BL-Uqx-C-Type Natriuretic Peptide 5157 pg/mL (0-449) Total Protein 6.5 g/dL (6.4-8.2) Albumin 1.6 g/dL (3.4-5.0) Lipase 160 U/L (73-393) Thyroid Stimulating Hormone (TSH) 3.670 uIU/mL (0.358-3.74) Urine Collection Type U cath Urine Color [place] Urine Clarity Turbid Urine pH 5.0 Urine Specific [place] 1.020 Urine Protein 100 mg/dL (NEG-TRACE) Urine Glucose (UA) Negative mg/dL (NEG) Urine Ketones (Stick) Negative mg/dL (NEG) Urine Blood Large (NEG) Urine Nitrite Negative (NEG) Urine Bilirubin Small (NEG) Urine Urobilinogen Dipstick 1.0 mg/dL (0.2 mg/dL) Urine Leukocyte Esterase Small (NEG) Urine RBC >40 /HPF (0-2) Urine WBC Occ /HPF (0-4) Urine Amorphous Sediment Present /HPF Urine Bacteria Few /HPF (0-FEW) Urine Hyaline Casts Moderate /HPF Influenza Type A Antigen Negative (NEGATIVE) Influenza Type B Antigen Negative (NEGATIVE) Test 08/06/17 00:25 08/06/17 06:00 Troponin I Quantitative 0.036 ng/mL (0.000-0.055) 0.032 ng/mL (0.000-0.055) White Blood Count 7.4 x10^3/uL (4.0-11.0) Red Blood Count 2.37 x10^6/uL (4.30-5.70) Hemoglobin 7.3 g/dL (13.0-17.5) Hematocrit 22.3 % (39.0-53.0) Mean Corpuscular Volume 94 fL (79-100) Mean Corpuscular Hemoglobin 31 pg (25-35) Mean Corpuscular Hemoglobin Concent 33 g/dL (31-37) Red Cell Distribution Width 14.7 % (11.5-14.5) Platelet Count 330 x10^3/uL (140-400) Neutrophils (%) (Auto) 93 % (31-73) Lymphocytes (%) (Auto) 6 % (24-48) Monocytes (%) (Auto) 1 % (0-9) Eosinophils (%) (Auto) 0 % (0-3) Basophils (%) (Auto) 0 % (0-3) Neutrophils # (Auto) 6.9 x10^3uL (1.8-7.7) Lymphocytes # (Auto) 0.4 x10^3/uL (1.0-4.8) Monocytes # (Auto) 0.1 x10^3/uL (0.0-1.1) Eosinophils # (Auto) 0.0 x10^3/uL (0.0-0.7) Basophils # (Auto) 0.0 x10^3/uL (0.0-0.2) Sodium Level 142 mmol/L (136-145) Potassium Level 5.1 mmol/L (3.5-5.1) Chloride Level 104 mmol/L (98-107) Carbon Dioxide Level 32 mmol/L (21-32) Anion Gap 6 (6-14) Blood Urea Nitrogen 125 mg/dL (8-26) Creatinine 2.4 mg/dL (0.7-1.3) Estimated GFR (Cockcroft-Gault) 26.3 BUN/Creatinine Ratio 52 (6-20) Glucose Level 250 mg/dL (70-99) Calcium Level 7.8 mg/dL (8.5-10.1) Total Bilirubin 0.8 mg/dL (0.2-1.0) Aspartate Amino Transf (AST/SGOT) 30 U/L (15-37) Alanine Aminotransferase (ALT/SGPT) 22 U/L (16-63) Alkaline Phosphatase 68 U/L (46-116) Total Protein 5.4 g/dL (6.4-8.2) Albumin 1.5 g/dL (3.4-5.0) Albumin/Globulin Ratio 0.4 (1.0-1.7) Laboratory Tests Test 08/05/17 17:05 08/05/17 17:10 08/05/17 18:10 08/05/17 20:00 White Blood Count 12.6 x10^3/uL (4.0-11.0) Red Blood Count 2.68 x10^6/uL (4.30-5.70) Hemoglobin 8.4 g/dL (13.0-17.5) Hematocrit 25.1 % (39.0-53.0) Mean Corpuscular Volume 94 fL (79-100) Mean Corpuscular Hemoglobin 31 pg (25-35) Mean Corpuscular Hemoglobin Concent 33 g/dL (31-37) Red Cell Distribution Width 15.0 % (11.5-14.5) Platelet Count 405 x10^3/uL (140-400) Neutrophils (%) (Auto) 86 % (31-73) Lymphocytes (%) (Auto) 6 % (24-48) Monocytes (%) (Auto) 7 % (0-9) Eosinophils (%) (Auto) 1 % (0-3) Basophils (%) (Auto) 1 % (0-3) Neutrophils # (Auto) 10.9 x10^3uL (1.8-7.7) Lymphocytes # (Auto) 0.8 x10^3/uL (1.0-4.8) Monocytes # (Auto) 0.8 x10^3/uL (0.0-1.1) Eosinophils # (Auto) 0.1 x10^3/uL (0.0-0.7) Basophils # (Auto) 0.1 x10^3/uL (0.0-0.2) Segmented Neutrophils % 86 % (35-66) Band Neutrophils % 3 % (0-9) Lymphocytes % 4 % (24-48) Monocytes % 5 % (0-10) Eosinophils % 1 % (0-5) Myelocytes % 1 % (0-0) Toxic Granulation Slight Platelet Estimate Adequate (ADEQUATE) Hypochromasia Slight Anisocytosis Slight Sodium Level 138 mmol/L (136-145) Potassium Level 5.8 mmol/L (3.5-5.1) Chloride Level 101 mmol/L (98-107) Carbon Dioxide Level 34 mmol/L (21-32) Anion Gap 3 (6-14) Blood Urea Nitrogen 120 mg/dL (8-26) Creatinine 2.6 mg/dL (0.7-1.3) Estimated GFR (Cockcroft-Gault) 24.0 Glucose Level 259 mg/dL (70-99) Lactic Acid Level 1.8 mmol/L (0.4-2.0) 1.0 mmol/L (0.4-2.0) Calcium Level 8.4 mg/dL (8.5-10.1) Magnesium Level 2.8 mg/dL (1.8-2.4) Total Bilirubin 1.1 mg/dL (0.2-1.0) Direct Bilirubin 0.4 mg/dL (0.0-0.2) Aspartate Amino Transf (AST/SGOT) 45 U/L (15-37) Alanine Aminotransferase (ALT/SGPT) 26 U/L (16-63) Alkaline Phosphatase 76 U/L (46-116) Creatine Kinase 122 U/L (39-308) Creatine Kinase MB (Mass) < 0.5 ng/mL (0.0-3.6) Creatine Kinase MB Relative Index 0.4 % (0-4) Troponin I Quantitative 0.038 ng/mL (0.000-0.055) JF-Rpe-Q-Type Natriuretic Peptide 5157 pg/mL (0-449) Total Protein 6.5 g/dL (6.4-8.2) Albumin 1.6 g/dL (3.4-5.0) Lipase 160 U/L (73-393) Thyroid Stimulating Hormone (TSH) 3.670 uIU/mL (0.358-3.74) Urine Collection Type U cath Urine Color [place] Urine Clarity Turbid Urine pH 5.0 Urine Specific [place] 1.020 Urine Protein 100 mg/dL (NEG-TRACE) Urine Glucose (UA) Negative mg/dL (NEG) Urine Ketones (Stick) Negative mg/dL (NEG) Urine Blood Large (NEG) Urine Nitrite Negative (NEG) Urine Bilirubin Small (NEG) Urine Urobilinogen Dipstick 1.0 mg/dL (0.2 mg/dL) Urine Leukocyte Esterase Small (NEG) Urine RBC >40 /HPF (0-2) Urine WBC Occ /HPF (0-4) Urine Amorphous Sediment Present /HPF Urine Bacteria Few /HPF (0-FEW) Urine Hyaline Casts Moderate /HPF Influenza Type A Antigen Negative (NEGATIVE) Influenza Type B Antigen Negative (NEGATIVE) Test 08/06/17 00:25 08/06/17 06:00 Troponin I Quantitative 0.036 ng/mL (0.000-0.055) 0.032 ng/mL (0.000-0.055) White Blood Count 7.4 x10^3/uL (4.0-11.0) Red Blood Count 2.37 x10^6/uL (4.30-5.70) Hemoglobin 7.3 g/dL (13.0-17.5) Hematocrit 22.3 % (39.0-53.0) Mean Corpuscular Volume 94 fL (79-100) Mean Corpuscular Hemoglobin 31 pg (25-35) Mean Corpuscular Hemoglobin Concent 33 g/dL (31-37) Red Cell Distribution Width 14.7 % (11.5-14.5) Platelet Count 330 x10^3/uL (140-400) Neutrophils (%) (Auto) 93 % (31-73) Lymphocytes (%) (Auto) 6 % (24-48) Monocytes (%) (Auto) 1 % (0-9) Eosinophils (%) (Auto) 0 % (0-3) Basophils (%) (Auto) 0 % (0-3) Neutrophils # (Auto) 6.9 x10^3uL (1.8-7.7) Lymphocytes # (Auto) 0.4 x10^3/uL (1.0-4.8) Monocytes # (Auto) 0.1 x10^3/uL (0.0-1.1) Eosinophils # (Auto) 0.0 x10^3/uL (0.0-0.7) Basophils # (Auto) 0.0 x10^3/uL (0.0-0.2) Sodium Level 142 mmol/L (136-145) Potassium Level 5.1 mmol/L (3.5-5.1) Chloride Level 104 mmol/L (98-107) Carbon Dioxide Level 32 mmol/L (21-32) Anion Gap 6 (6-14) Blood Urea Nitrogen 125 mg/dL (8-26) Creatinine 2.4 mg/dL (0.7-1.3) Estimated GFR (Cockcroft-Gault) 26.3 BUN/Creatinine Ratio 52 (6-20) Glucose Level 250 mg/dL (70-99) Calcium Level 7.8 mg/dL (8.5-10.1) Total Bilirubin 0.8 mg/dL (0.2-1.0) Aspartate Amino Transf (AST/SGOT) 30 U/L (15-37) Alanine Aminotransferase (ALT/SGPT) 22 U/L (16-63) Alkaline Phosphatase 68 U/L (46-116) Total Protein 5.4 g/dL (6.4-8.2) Albumin 1.5 g/dL (3.4-5.0) Albumin/Globulin Ratio 0.4 (1.0-1.7) Images Images Impression: 1. Findings concerning for CHF. 2. Left pleural effusion with associated atelectasis and/ or infiltrate also suspected. KARISSA MCKNIGHT MD Aug 06, 2017 08:55
[2017-08-06] MEDS ORDERED: HYDROcodone/APAP 7.5/325MG 1 TAB TABLET PO PRN (09:45)
--- NOTE | 2017-08-06 10:56 | PDOC2 ---
DIANA MEJIA FACE MAN 08/06/17 1056: CARDIAC CONSULT DATE OF CONSULT Date of Consult DATE: 08/06/17 TIME: 10:41 REASON FOR CONSULT Reason for Consult: CHF REFERRING PHYSICIAN Referring Physician: Deyanira SOURCE Source: Chart review, Patient HISTORY OF PRESENT ILLNESS HISTORY OF PRESENT ILLNESS This is a pleasant 76 yo male admitted for complains of SOA. Pt initially fell about 2 weeks ago and was admitted at [facility]. During his stay over there he was treated for AMY, CHF, AFIB RVR. He was started on eliquis and amiodarone dduring that time and was noted with diastolic CHF. He was then released recently and was transferred to SNU. In his brief stay he then developed increasing SOA, increasing cough and noted with possible pneumonia. Him and his were poor historian. Denies nay CP, palpitations. Positive for orthopnea and PND. No known hx of NAVI. Denies having any ischemic workup at [facility] and no known hx of CAD, CVA, or VTE. I reviewed his medication list from [facility] and noted no entresto but with amiodarone and eliquis. There was a notation for JIL cardioversion at [facility] and accdg to spouse that this was carried out PAST MEDICAL HISTORY Past Medical History Cardiovascular: HTN, Hyperlipidemia, CHF, cardiomyopathy, AFIB Pulmonary: pulmonary HTN CENTRAL NERVOUS SYSTEM: Other (denies) GI: No pertinent hx Heme/Onc: Cancer (prostate) Hepatobiliary: No pertinent hx Psych: No pertinent hx Musculoskeletal: Osteoarthritis Rheumatologic: No pertinent hx Infectious disease: MRSA ENT: No pertinent hx Renal/: Prostate Ca. (initially diagnosed 5 years ago treated with robotic prostatectomy, then noted relapse 2 years ago treated with radiation which he reports weakened his abdominal muscles leading to hernia), CKD Endocrine: Diabetes (type2) Dermatology: No pertinent hx PAST SURGICAL HISTORY Past Surgical History Prostatectomy, right rotator cuff repair, appendectomy, cataract removal, ventral hernia repair with mesh FAMILY HISTORY Family History noncontributory to CV SOCIAL HISTORY Smoke: No ALCOHOL: none Drugs: None Lives: with Family CURRENT MEDICATIONS CURRENT MEDICATIONS Current Medications Medications (Trade) Dose Ordered Sig/Meghana Route PRN Reason Start Time Stop Time Status Last Admin Dose Admin Sodium Chloride (Normal Saline Flush) 10 ml 1X ONCE IV 08/05/17 17:00 08/05/17 17:01 DC 08/06/17 08:01 Sodium Chloride 1,000 ml @ 1,000 mls/hr Q1H IV 08/05/17 16:55 08/05/17 17:54 DC 08/05/17 17:22 Albuterol/ Ipratropium (Duoneb) 3 ml 1X ONCE NEB 08/05/17 17:00 08/05/17 17:01 DC 08/05/17 17:17 Methylprednisolone Sodium Succinate (SOLU-Medrol 125MG VIAL) 125 mg 1X ONCE IV 08/05/17 17:00 08/05/17 17:01 DC 08/05/17 17:25 Acetaminophen (Tylenol) 650 mg 1X ONCE PO 08/05/17 17:00 08/05/17 17:01 DC 08/05/17 17:27 Azithromycin 250 ml @ 250 mls/hr 1X ONCE IV 08/05/17 17:15 08/05/17 18:14 DC 08/05/17 18:53 Ceftriaxone Sodium 50 ml @ 100 mls/hr 1X ONCE IV 08/05/17 17:15 08/05/17 17:44 DC 08/05/17 17:30 Furosemide (Lasix) 40 mg 1X ONCE IVP 08/05/17 18:15 08/05/17 18:16 DC 08/05/17 18:50 Sodium Chloride 1,000 ml @ 1,000 mls/hr Q1H IV 08/05/17 18:06 08/05/17 19:05 DC 08/05/17 21:10 Enoxaparin Sodium (Lovenox 120mg Syringe) 120 mg 1X ONCE SQ 08/05/17 18:30 08/05/17 18:31 DC 08/05/17 18:50 Vancomycin HCl (Vanco Per Pharmacy) 1 each PRN DAILY PRN MC SEE COMMENTS 08/05/17 23:00 08/06/17 08:02 DC 08/06/17 01:23 Vancomycin HCl 2 gm/Sodium Chloride 500 ml @ 250 mls/hr 1X ONCE IV 08/05/17 23:30 08/06/17 01:29 DC 08/05/17 23:26 Piperacillin Sod/ Tazobactam Sod 3.375 gm/Sodium Chloride 50 ml @ 100 mls/hr Q6HRS IV 08/06/17 00:00 08/06/17 05:47 Furosemide (Lasix) 40 mg 1X ONCE IVP 08/06/17 08:00 08/06/17 08:01 DC 08/06/17 07:56 Linezolid 300 ml @ 300 mls/hr Q12HR IV 08/06/17 09:00 08/06/17 10:06 Acetaminophen/ Hydrocodone Bitart (Lortab 7.5/325) 1 tab PRN Q6HRS PRN PO PAIN 08/06/17 09:45 08/06/17 10:22 ALLERGIES ALLERGIES: Coded Allergies: simvastatin (Verified Allergy, Severe, mouth swelling, 04/14/14) sitagliptin phosphate (Verified Allergy, Severe, renal dysfunction, ) ROS Review of System 14 point ROS evaluated with pertinent positives noted per HPI PHYSICAL EXAM General: Alert, Oriented X3, Cooperative, mild distress HEENT: Atraumatic, Mucous membr. moist/pink Lungs: Other (basilar crackles/diminished/tachypnea) Heart: Regular rate (SR with PACs), Other (S4; distant heart sounds) Abdomen: Soft, Other (obese) Skin: Other (leg lesions noted in chart) Neuro: Normal speech, Sensation intact Psych/Mental Status: Mental status NL, Mood NL MUSCULOSKELETAL: Osteoarthritic changes both hands VITALS VITALS Vital Signs Date Time Temp Pulse Resp B/P (MAP) Pulse Ox O2 Delivery O2 Flow Rate FiO2 08/06/17 10:22 36 94 Nasal Cannula 5.0 08/06/17 09:00 74 140/58 (85) 08/06/17 08:00 97.8 97.8 LABS Lab: Laboratory Tests Test 08/05/17 17:05 08/05/17 17:10 08/05/17 18:10 08/05/17 20:00 White Blood Count 12.6 x10^3/uL (4.0-11.0) Red Blood Count 2.68 x10^6/uL (4.30-5.70) Hemoglobin 8.4 g/dL (13.0-17.5) Hematocrit 25.1 % (39.0-53.0) Mean Corpuscular Volume 94 fL (79-100) Mean Corpuscular Hemoglobin 31 pg (25-35) Mean Corpuscular Hemoglobin Concent 33 g/dL (31-37) Red Cell Distribution Width 15.0 % (11.5-14.5) Platelet Count 405 x10^3/uL (140-400) Neutrophils (%) (Auto) 86 % (31-73) Lymphocytes (%) (Auto) 6 % (24-48) Monocytes (%) (Auto) 7 % (0-9) Eosinophils (%) (Auto) 1 % (0-3) Basophils (%) (Auto) 1 % (0-3) Neutrophils # (Auto) 10.9 x10^3uL (1.8-7.7) Lymphocytes # (Auto) 0.8 x10^3/uL (1.0-4.8) Monocytes # (Auto) 0.8 x10^3/uL (0.0-1.1) Eosinophils # (Auto) 0.1 x10^3/uL (0.0-0.7) Basophils # (Auto) 0.1 x10^3/uL (0.0-0.2) Segmented Neutrophils % 86 % (35-66) Band Neutrophils % 3 % (0-9) Lymphocytes % 4 % (24-48) Monocytes % 5 % (0-10) Eosinophils % 1 % (0-5) Myelocytes % 1 % (0-0) Toxic Granulation Slight Platelet Estimate Adequate (ADEQUATE) Hypochromasia Slight Anisocytosis Slight Sodium Level 138 mmol/L (136-145) Potassium Level 5.8 mmol/L (3.5-5.1) Chloride Level 101 mmol/L (98-107) Carbon Dioxide Level 34 mmol/L (21-32) Anion Gap 3 (6-14) Blood Urea Nitrogen 120 mg/dL (8-26) Creatinine 2.6 mg/dL (0.7-1.3) Estimated GFR (Cockcroft-Gault) 24.0 Glucose Level 259 mg/dL (70-99) Lactic Acid Level 1.8 mmol/L (0.4-2.0) 1.0 mmol/L (0.4-2.0) Calcium Level 8.4 mg/dL (8.5-10.1) Magnesium Level 2.8 mg/dL (1.8-2.4) Total Bilirubin 1.1 mg/dL (0.2-1.0) Direct Bilirubin 0.4 mg/dL (0.0-0.2) Aspartate Amino Transf (AST/SGOT) 45 U/L (15-37) Alanine Aminotransferase (ALT/SGPT) 26 U/L (16-63) Alkaline Phosphatase 76 U/L (46-116) Creatine Kinase 122 U/L (39-308) Creatine Kinase MB (Mass) < 0.5 ng/mL (0.0-3.6) Creatine Kinase MB Relative Index 0.4 % (0-4) Troponin I Quantitative 0.038 ng/mL (0.000-0.055) WY-Xil-X-Type Natriuretic Peptide 5157 pg/mL (0-449) Total Protein 6.5 g/dL (6.4-8.2) Albumin 1.6 g/dL (3.4-5.0) Lipase 160 U/L (73-393) Thyroid Stimulating Hormone (TSH) 3.670 uIU/mL (0.358-3.74) Urine Collection Type U cath Urine Color [place]an Urine Clarity Turbid Urine pH 5.0 Urine Specific [place] 1.020 Urine Protein 100 mg/dL (NEG-TRACE) Urine Glucose (UA) Negative mg/dL (NEG) Urine Ketones (Stick) Negative mg/dL (NEG) Urine Blood Large (NEG) Urine Nitrite Negative (NEG) Urine Bilirubin Small (NEG) Urine Urobilinogen Dipstick 1.0 mg/dL (0.2 mg/dL) Urine Leukocyte Esterase Small (NEG) Urine RBC >40 /HPF (0-2) Urine WBC Occ /HPF (0-4) Urine Amorphous Sediment Present /HPF Urine Bacteria Few /HPF (0-FEW) Urine Hyaline Casts Moderate /HPF Influenza Type A Antigen Negative (NEGATIVE) Influenza Type B Antigen Negative (NEGATIVE) Test 08/06/17 00:25 08/06/17 06:00 Troponin I Quantitative 0.036 ng/mL (0.000-0.055) 0.032 ng/mL (0.000-0.055) White Blood Count 7.4 x10^3/uL (4.0-11.0) Red Blood Count 2.37 x10^6/uL (4.30-5.70) Hemoglobin 7.3 g/dL (13.0-17.5) Hematocrit 22.3 % (39.0-53.0) Mean Corpuscular Volume 94 fL (79-100) Mean Corpuscular Hemoglobin 31 pg (25-35) Mean Corpuscular Hemoglobin Concent 33 g/dL (31-37) Red Cell Distribution Width 14.7 % (11.5-14.5) Platelet Count 330 x10^3/uL (140-400) Neutrophils (%) (Auto) 93 % (31-73) Lymphocytes (%) (Auto) 6 % (24-48) Monocytes (%) (Auto) 1 % (0-9) Eosinophils (%) (Auto) 0 % (0-3) Basophils (%) (Auto) 0 % (0-3) Neutrophils # (Auto) 6.9 x10^3uL (1.8-7.7) Lymphocytes # (Auto) 0.4 x10^3/uL (1.0-4.8) Monocytes # (Auto) 0.1 x10^3/uL (0.0-1.1) Eosinophils # (Auto) 0.0 x10^3/uL (0.0-0.7) Basophils # (Auto) 0.0 x10^3/uL (0.0-0.2) Sodium Level 142 mmol/L (136-145) Potassium Level 5.1 mmol/L (3.5-5.1) Chloride Level 104 mmol/L (98-107) Carbon Dioxide Level 32 mmol/L (21-32) Anion Gap 6 (6-14) Blood Urea Nitrogen 125 mg/dL (8-26) Creatinine 2.4 mg/dL (0.7-1.3) Estimated GFR (Cockcroft-Gault) 26.3 BUN/Creatinine Ratio 52 (6-20) Glucose Level 250 mg/dL (70-99) Calcium Level 7.8 mg/dL (8.5-10.1) Total Bilirubin 0.8 mg/dL (0.2-1.0) Aspartate Amino Transf (AST/SGOT) 30 U/L (15-37) Alanine Aminotransferase (ALT/SGPT) 22 U/L (16-63) Alkaline Phosphatase 68 U/L (46-116) Total Protein 5.4 g/dL (6.4-8.2) Albumin 1.5 g/dL (3.4-5.0) Albumin/Globulin Ratio 0.4 (1.0-1.7) Procalcitonin 0.48 ng/mL (0.00-0.10) ECHOCARDIOGRAM ECHOCARDIOGRAM <Conclusion> Normal left ventricle systolic function with ejection fraction estimated at 55- 60%. There is normal LV segmental wall motion. Doppler and Color Flow revealed mild aortic regurgitation. Doppler and Color Flow revealed trace to mild mitral regurgitation. Doppler and Color Flow revealed mild tricuspid regurgitation. The pulmonary artery systolic pressure is estimated at 40-50 mmHg. There is no evidence of significant pericardial effusion. DATE: 04/15/14 1721 ASSESSMENT/PLAN ASSESSMENT/PLAN 1. Acute on chronic diastolic CHF 2. Sepsis with Possible pneumonia: ID and pulmonary following 3. Cardiomyopathy?: noted entresto on regimen? Last EF at [facility] at 65%. No known hx of CAD or LHC 4. 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 Severe protein malnutrition 6. PAFIB: New. noted recently with RVR at [facility]. Presently SR with PACs. Per spouse recent cardioversion 7. HTN: controlled 8. DM2/HLP: Last A1C 8.6 9. Pulmonary HTN with suspecting NAVI 10. Anemia: Hgb 7.3. On 07/23 this was 10.6. 10/10 at 9.4. Contributing hemodilution but with recent start of eliquis, possible bleed could not be completely ruled out. 11. Prior mechanical fall with right shoulder dislocation: with recent closed reduction Recommendations 1. Continue with amiodarone. Continue on eliquis at lower dose unless contraindicated by any active bleed. 2. Would recommend GI eval. 3. ABG, CXR, TTE, repeat hemogram 4. DC darenstzina pardoos for now 5. May need blood transfusion. Recheck Hgb. 6. Continue on lasix and will prep with albumin on next dose. Problems: LILY KEENE MD 08/06/172119: CARDIAC CONSULT ALLERGIES ALLERGIES: Coded Allergies: simvastatin (Verified Allergy, Severe, mouth swelling, 04/14/14) sitagliptin phosphate (Verified Allergy, Severe, renal dysfunction, ) ASSESSMENT/PLAN ASSESSMENT/PLAN Patient seen and examined. Agree with [employer]'s assessment and plan. Acute on chronic diastolic HF improving with diuresis 2D echo showed normal LV systolic function and moderate to severe pulm hypertension ParoxA. Fib presently in sinus rhythm. Continue amiodarone and eliquis Agree with GI consult to evaluate anemia Continue IV abx for sepsis per ID Thank you for your consultation. Problems: DIANA MEJIA APRN Aug 06, 2017 10:56 LILY KEENE MD Aug 06, 2017 21:20
[2017-08-06] MEDS ORDERED: SENNOSIDES/DOCUSATE 8.6/50MG TABLET. PO PRN (11:15)
[2017-08-06] MEDS ORDERED: BISACODYL 10 MG SUPP.RECT. RC PRN (11:15)
[2017-08-06] MEDS ORDERED: ACETAMINOPHEN 325 MG TABLET. PO PRN (11:15)
[2017-08-06] MEDS ORDERED: MAGNESIUM HYDROXIDE 2,400 MG/30 ML ORAL.SUSP. PO PRN (11:15)
--- NOTE | 2017-08-06 11:17 | CONS ---
DATE OF CONSULTATION: 08/06/2017 HISTORY OF PRESENT ILLNESS: The patient is a 76-year-old gentleman who we have seen at [facility]. He apparently had sustained a non-syncopal fall from stairs at his home and was brought to [facility]. He was diagnosed with a right shoulder dislocation, which was reduced. At the initial hospitalization, he was in the ICU with AFib RVR and was placed on rate controlling medications. It is unclear to me or him whether he received cardioversion or not. He was also diagnosed with combined systolic and diastolic heart failure there. He remained prerenal when he was at [facility]; however, his chest x-ray persistently showed some CHF. He did have chronic hematuria, which was attributed to his prostate cancer. He is now on anticoagulation also. He was thereafter transferred to [facility]. It appears that his creatinine nadired at 1.3; however, fluid status in that point in time is not known. His previous creatinines have been as high as 1.6-1.8 with his primary care physician in October. It is, however, noted that prior to his hospitalization, the patient had been on NSAIDs on a regular basis. He is not on one currently. Denies melena or hematochezia. He was on Lasix at the time of discharge at 40 mg b.i.d. besides other medications. He is known to be diabetic. He was also on metolazone as well as Entresto and potassium. He was brought to the ER due to increasing shortness of breath with subjective low-grade fevers and a productive cough. In this setting, he was admitted to the ICU with what appears to be diagnosis of community-acquired pneumonia management also. We were asked to see him for elevated BUN and creatinine ratio. On presentation, he had potassium of 5.8, but is now down to 5.1 this morning, BUN and creatinine were 120 and 2.6, and albumin is low at 1.5. I have extensively reviewed his records from [facility]; however, echocardiogram is not available. This will be requested or repeated as needed. For rest of details, see electronic records. KARSISA MCKNIGHT MD DR: ENDER/michi JOB#: [id number] / [id number]
[2017-08-06] MEDS ORDERED: PIOGLITAZONE 15 MG TABLET. PO SCH (12:00)
[2017-08-06] MEDS: FLUTICASONE 50MCG/NASAL SPRAY 16GM BOTTLE. NS SCH (12:00)
[2017-08-06] MEDS: LUBIPROSTONE 8 MCG CAPSULE PO SCH ×2 (12:00→17:54)
[2017-08-06] MEDS ORDERED: DEXTROSE 50% 25 GM / 50ML DISP.SYRIN. IV PRN (12:15)
--- NOTE | 2017-08-06 12:21 | CONS ---
DATE OF CONSULTATION: 08/06/2017 ATTENDING PHYSICIAN: Dr. Richardson. The patient was seen at the request of Dr. Richardson for rehab evaluation. He is in room 111. HISTORY OF PRESENT ILLNESS: This is a 76-year-old male, admitted as per transfer from [facility] on 08/05/2017 with generalized fatigue and weakness, having difficulty to sit up and also slight cough and some shortness of breath and noted with hypoxia. He is being treated for right lower lobe pneumonia. The patient admits pain everywhere, more so in his shoulders. The patient has been independent with his mobility and self-care skills, not using an assistive device yet until about 2 weeks ago, when he fell walking on a ramp in the backyard to enter the house and landed on a concrete floor and dislocated his right shoulder. He was hospitalized at [facility] and was treated and was transferred to [facility] on 08/04/2017. The patient apparently not getting any therapy. He feels weak all over. PAST MEDICAL HISTORY: Significant for chronic systolic and diastolic congestive heart failure, and he was treated for acute renal failure after his fall two weeks ago. Hyperlipidemia, hypertension, atrial fibrillation, diabetes mellitus, osteoarthritis, carcinoma of the prostate. The patient is status post cataract surgery and appendectomy. He admits some pain in his lower back and also right leg. 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 ALLERGIES: HE IS KNOWN ALLERGIC TO SIMVASTATIN AND SITAGLIPTIN PHOSPHATE. PHYSICAL EXAMINATION: Today revealed an elderly male. He is alert, oriented to time, place, person and circumstance and follows commands appropriately, moves all 4 extremities voluntarily where he had generalized muscle weakness, more so in his upper extremities especially of right shoulder abduction or external rotation. The patient's overall muscle strength is being 1/5 to 2/5 grade in the upper extremities and 2/5 to 3/5 grade in his lower extremities. He also had relatively increased weakness in hand intrinsic muscles and left triceps. Deep tendon reflexes are 1 to 2+ and symmetrical, with absent right ankle jerk. He had equal perception of touch and pinprick sensation bilaterally. He had dressing to skin breakdown over right leg and over lumbar spine area. He had tenderness to palpation over anterior aspect of both shoulders. He had pain on range of motion of both shoulders, especially on the right side. He had crepitus on range of motion of both knee joints and also both ankle joints with some effusion, pain free range of motion of both hip joints. He requires help with bed mobility. I have not tested his transfers or ambulation skills at present time. He is receiving oxygen by nasal cannula and also receiving IV fluids. 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 RECOMMENDATIONS: Agree with the plan for physical therapy and occupational therapy to get him up as tolerated to residential care unit when he is medically stable for continued care. Dr. Richardson, I appreciate asking me to participate in the care of this interesting patient. I will be glad to follow him with you as needed for his rehabilitation to consider injecting his painful shoulders if the pain is interfering with his activity participation. BENNY YANG MD DR: SAAD/michi JOB#: [id number] / [id number]
--- NOTE | 2017-08-06 12:48 | PDOC ---
PROGRESS NOTES Chief Complaint Chief Complaint Pneumonia Hypoxia Renal failure Sepsis Afib CHF Diabetes HTN Hypercholesterolemia SOB Cough Obesity BMI 37 History of Present Illness History of Present Illness Pt was seen at bedside in the ICU. Pt is hypoxia and has tachypnea. Pt is in heavy distress. He is using accessory muscles of respiration. Distress respiratory pattern was visualized. Pt's O2 sat is 96%. Creatinine is elevated at 2.4 and BUN is elevated at 125. CXR showed new right lower lobe pneumonia. Pt has marked fatigue and weakness today, cannot sit up fully. Pt is being seen by nephrology, infectious disease, cardiology, and physiatry. DW and pt Code status. They want to remain full code for now. Vitals Vitals Vital Signs Date Time Temp Pulse Resp B/P (MAP) Pulse Ox O2 Delivery O2 Flow Rate FiO2 08/06/17 11:29 26 95 Nasal Cannula 5.0 08/06/17 09:00 74 140/58 (85) 08/06/17 08:00 97.8 97.8 Physical Exam Physical Exam Regularly irregular rhythm General: Alert, Oriented X3, Cooperative, severe distress Heart: Normal S1, Normal S2, No murmurs Lungs: Clear, Other (Using accesory muscles.) Abdomen: Normal bowel sounds, Soft (obese, no sounds) Extremities: No cyanosis, No edema Skin: No rashes, No significant lesion Labs LABS Laboratory Tests Test 08/05/17 17:05 08/05/17 17:10 08/05/17 18:10 08/05/17 20:00 White Blood Count 12.6 x10^3/uL (4.0-11.0) Red Blood Count 2.68 x10^6/uL (4.30-5.70) Hemoglobin 8.4 g/dL (13.0-17.5) Hematocrit 25.1 % (39.0-53.0) Mean Corpuscular Volume 94 fL (79-100) Mean Corpuscular Hemoglobin 31 pg (25-35) Mean Corpuscular Hemoglobin Concent 33 g/dL (31-37) Red Cell Distribution Width 15.0 % (11.5-14.5) Platelet Count 405 x10^3/uL (140-400) Neutrophils (%) (Auto) 86 % (31-73) Lymphocytes (%) (Auto) 6 % (24-48) Monocytes (%) (Auto) 7 % (0-9) Eosinophils (%) (Auto) 1 % (0-3) Basophils (%) (Auto) 1 % (0-3) Neutrophils # (Auto) 10.9 x10^3uL (1.8-7.7) Lymphocytes # (Auto) 0.8 x10^3/uL (1.0-4.8) Monocytes # (Auto) 0.8 x10^3/uL (0.0-1.1) Eosinophils # (Auto) 0.1 x10^3/uL (0.0-0.7) Basophils # (Auto) 0.1 x10^3/uL (0.0-0.2) Segmented Neutrophils % 86 % (35-66) Band Neutrophils % 3 % (0-9) Lymphocytes % 4 % (24-48) Monocytes % 5 % (0-10) Eosinophils % 1 % (0-5) Myelocytes % 1 % (0-0) Toxic Granulation Slight Platelet Estimate Adequate (ADEQUATE) Hypochromasia Slight Anisocytosis Slight Sodium Level 138 mmol/L (136-145) Potassium Level 5.8 mmol/L (3.5-5.1) Chloride Level 101 mmol/L (98-107) Carbon Dioxide Level 34 mmol/L (21-32) Anion Gap 3 (6-14) Blood Urea Nitrogen 120 mg/dL (8-26) Creatinine 2.6 mg/dL (0.7-1.3) Estimated GFR (Cockcroft-Gault) 24.0 Glucose Level 259 mg/dL (70-99) Lactic Acid Level 1.8 mmol/L (0.4-2.0) 1.0 mmol/L (0.4-2.0) Calcium Level 8.4 mg/dL (8.5-10.1) Magnesium Level 2.8 mg/dL (1.8-2.4) Total Bilirubin 1.1 mg/dL (0.2-1.0) Direct Bilirubin 0.4 mg/dL (0.0-0.2) Aspartate Amino Transf (AST/SGOT) 45 U/L (15-37) Alanine Aminotransferase (ALT/SGPT) 26 U/L (16-63) Alkaline Phosphatase 76 U/L (46-116) Creatine Kinase 122 U/L (39-308) Creatine Kinase MB (Mass) < 0.5 ng/mL (0.0-3.6) Creatine Kinase MB Relative Index 0.4 % (0-4) Troponin I Quantitative 0.038 ng/mL (0.000-0.055) SX-Eod-T-Type Natriuretic Peptide 5157 pg/mL (0-449) Total Protein 6.5 g/dL (6.4-8.2) Albumin 1.6 g/dL (3.4-5.0) Lipase 160 U/L (73-393) Thyroid Stimulating Hormone (TSH) 3.670 uIU/mL (0.358-3.74) Urine Collection Type U cath Urine Color Ladan Urine Clarity Turbid Urine pH 5.0 Urine Specific [place] 1.020 Urine Protein 100 mg/dL (NEG-TRACE) Urine Glucose (UA) Negative mg/dL (NEG) Urine Ketones (Stick) Negative mg/dL (NEG) Urine Blood Large (NEG) Urine Nitrite Negative (NEG) Urine Bilirubin Small (NEG) Urine Urobilinogen Dipstick 1.0 mg/dL (0.2 mg/dL) Urine Leukocyte Esterase Small (NEG) Urine RBC >40 /HPF (0-2) Urine WBC Occ /HPF (0-4) Urine Amorphous Sediment Present /HPF Urine Bacteria Few /HPF (0-FEW) Urine Hyaline Casts Moderate /HPF Influenza Type A Antigen Negative (NEGATIVE) Influenza Type B Antigen Negative (NEGATIVE) Test 08/06/17 00:25 08/06/17 06:00 Troponin I Quantitative 0.036 ng/mL (0.000-0.055) 0.032 ng/mL (0.000-0.055) White Blood Count 7.4 x10^3/uL (4.0-11.0) Red Blood Count 2.37 x10^6/uL (4.30-5.70) Hemoglobin 7.3 g/dL (13.0-17.5) Hematocrit 22.3 % (39.0-53.0) Mean Corpuscular Volume 94 fL (79-100) Mean Corpuscular Hemoglobin 31 pg (25-35) Mean Corpuscular Hemoglobin Concent 33 g/dL (31-37) Red Cell Distribution Width 14.7 % (11.5-14.5) Platelet Count 330 x10^3/uL (140-400) Neutrophils (%) (Auto) 93 % (31-73) Lymphocytes (%) (Auto) 6 % (24-48) Monocytes (%) (Auto) 1 % (0-9) Eosinophils (%) (Auto) 0 % (0-3) Basophils (%) (Auto) 0 % (0-3) Neutrophils # (Auto) 6.9 x10^3uL (1.8-7.7) Lymphocytes # (Auto) 0.4 x10^3/uL (1.0-4.8) Monocytes # (Auto) 0.1 x10^3/uL (0.0-1.1) Eosinophils # (Auto) 0.0 x10^3/uL (0.0-0.7) Basophils # (Auto) 0.0 x10^3/uL (0.0-0.2) Sodium Level 142 mmol/L (136-145) Potassium Level 5.1 mmol/L (3.5-5.1) Chloride Level 104 mmol/L (98-107) Carbon Dioxide Level 32 mmol/L (21-32) Anion Gap 6 (6-14) Blood Urea Nitrogen 125 mg/dL (8-26) Creatinine 2.4 mg/dL (0.7-1.3) Estimated GFR (Cockcroft-Gault) 26.3 BUN/Creatinine Ratio 52 (6-20) Glucose Level 250 mg/dL (70-99) Calcium Level 7.8 mg/dL (8.5-10.1) Total Bilirubin 0.8 mg/dL (0.2-1.0) Aspartate Amino Transf (AST/SGOT) 30 U/L (15-37) Alanine Aminotransferase (ALT/SGPT) 22 U/L (16-63) Alkaline Phosphatase 68 U/L (46-116) Total Protein 5.4 g/dL (6.4-8.2) Albumin 1.5 g/dL (3.4-5.0) Albumin/Globulin Ratio 0.4 (1.0-1.7) Procalcitonin 0.48 ng/mL (0.00-0.10) Review of Systems Review of Systems Pt complains of SOB, cough, fatigue, and weakness. Assessment and Plan Assessmemt and Plan Problems Medical Problems: (1) Anemia Status: Acute (2) Dyspnea Status: Acute (3) Fever Status: Acute (4) Hyperkalemia Status: Acute (5) Leukocytosis Status: Acute (6) Renal insufficiency Status: Acute Assessment: Pneumonia Hypoxia Renal failure Sepsis Afib CHF Diabetes HTN Hypercholesterolemia SOB Cough Obesity BMI 37 Plan: Continue ICU monitoring Appreciate subspecialist input Continue antibiotics Continue hydrocodone for pain Order labs Order PT/OT Continue at home meds Full Code for now. Prognosis guarded Total time 32 minutes Problems: Comment Review of Relevant I have reviewed the following items marlon (where applicable) has been applied. Labs Laboratory Tests Test 08/05/17 17:05 08/05/17 17:10 08/05/17 18:10 08/05/17 20:00 White Blood Count 12.6 x10^3/uL (4.0-11.0) Red Blood Count 2.68 x10^6/uL (4.30-5.70) Hemoglobin 8.4 g/dL (13.0-17.5) Hematocrit 25.1 % (39.0-53.0) Mean Corpuscular Volume 94 fL (79-100) Mean Corpuscular Hemoglobin 31 pg (25-35) Mean Corpuscular Hemoglobin Concent 33 g/dL (31-37) Red Cell Distribution Width 15.0 % (11.5-14.5) Platelet Count 405 x10^3/uL (140-400) Neutrophils (%) (Auto) 86 % (31-73) Lymphocytes (%) (Auto) 6 % (24-48) Monocytes (%) (Auto) 7 % (0-9) Eosinophils (%) (Auto) 1 % (0-3) Basophils (%) (Auto) 1 % (0-3) Neutrophils # (Auto) 10.9 x10^3uL (1.8-7.7) Lymphocytes # (Auto) 0.8 x10^3/uL (1.0-4.8) Monocytes # (Auto) 0.8 x10^3/uL (0.0-1.1) Eosinophils # (Auto) 0.1 x10^3/uL (0.0-0.7) Basophils # (Auto) 0.1 x10^3/uL (0.0-0.2) Segmented Neutrophils % 86 % (35-66) Band Neutrophils % 3 % (0-9) Lymphocytes % 4 % (24-48) Monocytes % 5 % (0-10) Eosinophils % 1 % (0-5) Myelocytes % 1 % (0-0) Toxic Granulation Slight Platelet Estimate Adequate (ADEQUATE) Hypochromasia Slight Anisocytosis Slight Sodium Level 138 mmol/L (136-145) Potassium Level 5.8 mmol/L (3.5-5.1) Chloride Level 101 mmol/L (98-107) Carbon Dioxide Level 34 mmol/L (21-32) Anion Gap 3 (6-14) Blood Urea Nitrogen 120 mg/dL (8-26) Creatinine 2.6 mg/dL (0.7-1.3) Estimated GFR (Cockcroft-Gault) 24.0 Glucose Level 259 mg/dL (70-99) Lactic Acid Level 1.8 mmol/L (0.4-2.0) 1.0 mmol/L (0.4-2.0) Calcium Level 8.4 mg/dL (8.5-10.1) Magnesium Level 2.8 mg/dL (1.8-2.4) Total Bilirubin 1.1 mg/dL (0.2-1.0) Direct Bilirubin 0.4 mg/dL (0.0-0.2) Aspartate Amino Transf (AST/SGOT) 45 U/L (15-37) Alanine Aminotransferase (ALT/SGPT) 26 U/L (16-63) Alkaline Phosphatase 76 U/L (46-116) Creatine Kinase 122 U/L (39-308) Creatine Kinase MB (Mass) < 0.5 ng/mL (0.0-3.6) Creatine Kinase MB Relative Index 0.4 % (0-4) Troponin I Quantitative 0.038 ng/mL (0.000-0.055) CK-Tod-O-Type Natriuretic Peptide 5157 pg/mL (0-449) Total Protein 6.5 g/dL (6.4-8.2) Albumin 1.6 g/dL (3.4-5.0) Lipase 160 U/L (73-393) Thyroid Stimulating Hormone (TSH) 3.670 uIU/mL (0.358-3.74) Urine Collection Type U cath Urine Color [place] Urine Clarity Turbid Urine pH 5.0 Urine Specific [place] 1.020 Urine Protein 100 mg/dL (NEG-TRACE) Urine Glucose (UA) Negative mg/dL (NEG) Urine Ketones (Stick) Negative mg/dL (NEG) Urine Blood Large (NEG) Urine Nitrite Negative (NEG) Urine Bilirubin Small (NEG) Urine Urobilinogen Dipstick 1.0 mg/dL (0.2 mg/dL) Urine Leukocyte Esterase Small (NEG) Urine RBC >40 /HPF (0-2) Urine WBC Occ /HPF (0-4) Urine Amorphous Sediment Present /HPF Urine Bacteria Few /HPF (0-FEW) Urine Hyaline Casts Moderate /HPF Influenza Type A Antigen Negative (NEGATIVE) Influenza Type B Antigen Negative (NEGATIVE) Test 08/06/17 00:25 08/06/17 06:00 Troponin I Quantitative 0.036 ng/mL (0.000-0.055) 0.032 ng/mL (0.000-0.055) White Blood Count 7.4 x10^3/uL (4.0-11.0) Red Blood Count 2.37 x10^6/uL (4.30-5.70) Hemoglobin 7.3 g/dL (13.0-17.5) Hematocrit 22.3 % (39.0-53.0) Mean Corpuscular Volume 94 fL (79-100) Mean Corpuscular Hemoglobin 31 pg (25-35) Mean Corpuscular Hemoglobin Concent 33 g/dL (31-37) Red Cell Distribution Width 14.7 % (11.5-14.5) Platelet Count 330 x10^3/uL (140-400) Neutrophils (%) (Auto) 93 % (31-73) Lymphocytes (%) (Auto) 6 % (24-48) Monocytes (%) (Auto) 1 % (0-9) Eosinophils (%) (Auto) 0 % (0-3) Basophils (%) (Auto) 0 % (0-3) Neutrophils # (Auto) 6.9 x10^3uL (1.8-7.7) Lymphocytes # (Auto) 0.4 x10^3/uL (1.0-4.8) Monocytes # (Auto) 0.1 x10^3/uL (0.0-1.1) Eosinophils # (Auto) 0.0 x10^3/uL (0.0-0.7) Basophils # (Auto) 0.0 x10^3/uL (0.0-0.2) Sodium Level 142 mmol/L (136-145) Potassium Level 5.1 mmol/L (3.5-5.1) Chloride Level 104 mmol/L (98-107) Carbon Dioxide Level 32 mmol/L (21-32) Anion Gap 6 (6-14) Blood Urea Nitrogen 125 mg/dL (8-26) Creatinine 2.4 mg/dL (0.7-1.3) Estimated GFR (Cockcroft-Gault) 26.3 BUN/Creatinine Ratio 52 (6-20) Glucose Level 250 mg/dL (70-99) Calcium Level 7.8 mg/dL (8.5-10.1) Total Bilirubin 0.8 mg/dL (0.2-1.0) Aspartate Amino Transf (AST/SGOT) 30 U/L (15-37) Alanine Aminotransferase (ALT/SGPT) 22 U/L (16-63) Alkaline Phosphatase 68 U/L (46-116) Total Protein 5.4 g/dL (6.4-8.2) Albumin 1.5 g/dL (3.4-5.0) Albumin/Globulin Ratio 0.4 (1.0-1.7) Procalcitonin 0.48 ng/mL (0.00-0.10) Laboratory Tests Test 08/05/17 17:05 08/05/17 17:10 08/05/17 18:10 08/05/17 20:00 White Blood Count 12.6 x10^3/uL (4.0-11.0) Red Blood Count 2.68 x10^6/uL (4.30-5.70) Hemoglobin 8.4 g/dL (13.0-17.5) Hematocrit 25.1 % (39.0-53.0) Mean Corpuscular Volume 94 fL (79-100) Mean Corpuscular Hemoglobin 31 pg (25-35) Mean Corpuscular Hemoglobin Concent 33 g/dL (31-37) Red Cell Distribution Width 15.0 % (11.5-14.5) Platelet Count 405 x10^3/uL (140-400) Neutrophils (%) (Auto) 86 % (31-73) Lymphocytes (%) (Auto) 6 % (24-48) Monocytes (%) (Auto) 7 % (0-9) Eosinophils (%) (Auto) 1 % (0-3) Basophils (%) (Auto) 1 % (0-3) Neutrophils # (Auto) 10.9 x10^3uL (1.8-7.7) Lymphocytes # (Auto) 0.8 x10^3/uL (1.0-4.8) Monocytes # (Auto) 0.8 x10^3/uL (0.0-1.1) Eosinophils # (Auto) 0.1 x10^3/uL (0.0-0.7) Basophils # (Auto) 0.1 x10^3/uL (0.0-0.2) Segmented Neutrophils % 86 % (35-66) Band Neutrophils % 3 % (0-9) Lymphocytes % 4 % (24-48) Monocytes % 5 % (0-10) Eosinophils % 1 % (0-5) Myelocytes % 1 % (0-0) Toxic Granulation Slight Platelet Estimate Adequate (ADEQUATE) Hypochromasia Slight Anisocytosis Slight Sodium Level 138 mmol/L (136-145) Potassium Level 5.8 mmol/L (3.5-5.1) Chloride Level 101 mmol/L (98-107) Carbon Dioxide Level 34 mmol/L (21-32) Anion Gap 3 (6-14) Blood Urea Nitrogen 120 mg/dL (8-26) Creatinine 2.6 mg/dL (0.7-1.3) Estimated GFR (Cockcroft-Gault) 24.0 Glucose Level 259 mg/dL (70-99) Lactic Acid Level 1.8 mmol/L (0.4-2.0) 1.0 mmol/L (0.4-2.0) Calcium Level 8.4 mg/dL (8.5-10.1) Magnesium Level 2.8 mg/dL (1.8-2.4) Total Bilirubin 1.1 mg/dL (0.2-1.0) Direct Bilirubin 0.4 mg/dL (0.0-0.2) Aspartate Amino Transf (AST/SGOT) 45 U/L (15-37) Alanine Aminotransferase (ALT/SGPT) 26 U/L (16-63) Alkaline Phosphatase 76 U/L (46-116) Creatine Kinase 122 U/L (39-308) Creatine Kinase MB (Mass) < 0.5 ng/mL (0.0-3.6) Creatine Kinase MB Relative Index 0.4 % (0-4) Troponin I Quantitative 0.038 ng/mL (0.000-0.055) TF-Aox-M-Type Natriuretic Peptide 5157 pg/mL (0-449) Total Protein 6.5 g/dL (6.4-8.2) Albumin 1.6 g/dL (3.4-5.0) Lipase 160 U/L (73-393) Thyroid Stimulating Hormone (TSH) 3.670 uIU/mL (0.358-3.74) Urine Collection Type U cath Urine Color [place]an Urine Clarity Turbid Urine pH 5.0 Urine Specific [place] 1.020 Urine Protein 100 mg/dL (NEG-TRACE) Urine Glucose (UA) Negative mg/dL (NEG) Urine Ketones (Stick) Negative mg/dL (NEG) Urine Blood Large (NEG) Urine Nitrite Negative (NEG) Urine Bilirubin Small (NEG) Urine Urobilinogen Dipstick 1.0 mg/dL (0.2 mg/dL) Urine Leukocyte Esterase Small (NEG) Urine RBC >40 /HPF (0-2) Urine WBC Occ /HPF (0-4) Urine Amorphous Sediment Present /HPF Urine Bacteria Few /HPF (0-FEW) Urine Hyaline Casts Moderate /HPF Influenza Type A Antigen Negative (NEGATIVE) Influenza Type B Antigen Negative (NEGATIVE) Test 08/06/17 00:25 08/06/17 06:00 Troponin I Quantitative 0.036 ng/mL (0.000-0.055) 0.032 ng/mL (0.000-0.055) White Blood Count 7.4 x10^3/uL (4.0-11.0) Red Blood Count 2.37 x10^6/uL (4.30-5.70) Hemoglobin 7.3 g/dL (13.0-17.5) Hematocrit 22.3 % (39.0-53.0) Mean Corpuscular Volume 94 fL (79-100) Mean Corpuscular Hemoglobin 31 pg (25-35) Mean Corpuscular Hemoglobin Concent 33 g/dL (31-37) Red Cell Distribution Width 14.7 % (11.5-14.5) Platelet Count 330 x10^3/uL (140-400) Neutrophils (%) (Auto) 93 % (31-73) Lymphocytes (%) (Auto) 6 % (24-48) Monocytes (%) (Auto) 1 % (0-9) Eosinophils (%) (Auto) 0 % (0-3) Basophils (%) (Auto) 0 % (0-3) Neutrophils # (Auto) 6.9 x10^3uL (1.8-7.7) Lymphocytes # (Auto) 0.4 x10^3/uL (1.0-4.8) Monocytes # (Auto) 0.1 x10^3/uL (0.0-1.1) Eosinophils # (Auto) 0.0 x10^3/uL (0.0-0.7) Basophils # (Auto) 0.0 x10^3/uL (0.0-0.2) Sodium Level 142 mmol/L (136-145) Potassium Level 5.1 mmol/L (3.5-5.1) Chloride Level 104 mmol/L (98-107) Carbon Dioxide Level 32 mmol/L (21-32) Anion Gap 6 (6-14) Blood Urea Nitrogen 125 mg/dL (8-26) Creatinine 2.4 mg/dL (0.7-1.3) Estimated GFR (Cockcroft-Gault) 26.3 BUN/Creatinine Ratio 52 (6-20) Glucose Level 250 mg/dL (70-99) Calcium Level 7.8 mg/dL (8.5-10.1) Total Bilirubin 0.8 mg/dL (0.2-1.0) Aspartate Amino Transf (AST/SGOT) 30 U/L (15-37) Alanine Aminotransferase (ALT/SGPT) 22 U/L (16-63) Alkaline Phosphatase 68 U/L (46-116) Total Protein 5.4 g/dL (6.4-8.2) Albumin 1.5 g/dL (3.4-5.0) Albumin/Globulin Ratio 0.4 (1.0-1.7) Procalcitonin 0.48 ng/mL (0.00-0.10) Microbiology 08/05/17 Blood Culture - Final, Complete Medications Current Medications Sodium Chloride (Normal Saline Flush) 10 ml 1X ONCE IV Last administered on t 08:01; Start 08/05/17 at 17:00; Stop 08/05/17 at 17:01; Status DC Sodium Chloride 1,000 ml @ 1,000 mls/hr Q1H IV Last administered on 17:22; Start 08/05/17 at 16:55; Stop 08/05/17 at 17:54; Status DC Albuterol/ Ipratropium (Duoneb) 3 ml 1X ONCE NEB Last administered on 17:17; Start 08/05/17 at 17:00; Stop 08/05/17 at 17:01; Status DC Methylprednisolone Sodium Succinate (SOLU-Medrol 125MG VIAL) 125 mg 1X ONCE IV Last administered on 08/05/17 17:25; Start 08/05/17 at 17:00; Stop at 17:01; Status DC Acetaminophen (Tylenol) 650 mg 1X ONCE PO Last administered on 08/05/17 17: 27; Start 08/05/17 at 17:00; Stop 08/05/17 at 17:01; Status DC Ceftriaxone Sodium 1 gm/ Sodium Chloride 50 ml @ 100 mls/hr 1X ONCE IV ; Start 08/05/17 at 17:00; Stop 08/05/17 at 17:29; Status UNV Azithromycin 500 mg/Sodium Chloride 250 ml @ 250 mls/hr 1X ONCE IV ; Start at 17:00; Stop 08/05/17 at 17:59; Status UNV Azithromycin 250 ml @ 250 mls/hr 1X ONCE IV Last administered on 08/05/17 18:53; Start 08/05/17 at 17:15; Stop 08/05/17 at 18:14; Status DC Ceftriaxone Sodium 50 ml @ 100 mls/hr 1X ONCE IV Last administered on 17:30; Start 08/05/17 at 17:15; Stop 08/05/17 at 17:44; Status DC Ondansetron HCl (Zofran) 4 mg PRN Q8HRS PRN IV NAUSEA/VOMITING; Start at 18:15; Stop 08/06/17 at 18:14 Fentanyl Citrate (Fentanyl 2ml Vial) 50 mcg PRN Q1HR PRN IV PAIN; Start at 18:15; Stop 08/06/17 at 18:14 Acetaminophen (Tylenol) 650 mg PRN Q4HRS PRN PO FEVER; Start 08/05/17 at 18:15 ; Stop 08/06/17 at 18:14 Furosemide (Lasix) 40 mg 1X ONCE IVP Last administered on 08/05/17 18:50; Start 08/05/17 at 18:15; Stop 08/05/17 at 18:16; Status DC Sodium Chloride 1,000 ml @ 1,000 mls/hr Q1H IV Last administered on 21:10; Start 08/05/17 at 18:06; Stop 08/05/17 at 19:05; Status DC Sodium Chloride (Normal Saline Flush) 10 ml QSHIFT PRN IV AFTER MEDS AND BLOOD DRAWS; Start 08/05/17 at 18:15 Enoxaparin Sodium (Lovenox 120mg Syringe) 120 mg 1X ONCE SQ Last administered on 08/05/17 18:50; Start 08/05/17 at 18:30; Stop 08/05/17 at 18:31; Status DC Docusate Sodium (Colace) 100 mg DAILY PO ; Start 08/06/17 at 09:00 Docusate Sodium (Colace) 100 mg PRN DAILY PRN PO CONSTIPATION; Start 08/05/17 at 23:00 Polyethylene Glycol (miraLAX PACKET) 17 gm DAILY PO ; Start 08/06/17 at 09:00 Polyethylene Glycol (miraLAX PACKET) 17 gm PRN DAILY PRN PO CONSTIPATION; Start 08/05/17 at 23:00 Piperacillin Sod/ Tazobactam Sod (Zosyn Per Pharmacy) 1 each PRN DAILY PRN MC SEE COMMENTS; Start 08/05/17 at 23:00; Stop 08/06/17 at 07:35; Status DC Vancomycin HCl (Vanco Per Pharmacy) 1 each PRN DAILY PRN MC SEE COMMENTS Last administered on 08/06/17 01:23; Start 08/05/17 at 23:00; Stop 08/06/17 at 08 :02; Status DC Vancomycin HCl 2 gm/Sodium Chloride 500 ml @ 250 mls/hr 1X ONCE IV Last administered on 08/05/17 23:26; Start 08/05/17 at 23:30; Stop 08/06/17 at 01 :29; Status DC Piperacillin Sod/ Tazobactam Sod 3.375 gm/Sodium Chloride 50 ml @ 100 mls/hr Q6HRS IV Last administered on 08/06/17 12:28; Start 08/06/17 at 00:00 Vancomycin HCl 2 gm/Sodium Chloride 500 ml @ 250 mls/hr Q24H IV ; Start at 23:00; Stop 08/06/17 at 23:00; Status DC Vancomycin HCl 1 each 1X ONCE MC ; Start 08/07/17 at 22:30; Stop 08/07/17 at 22:30; Status DC Furosemide (Lasix) 40 mg 1X ONCE IVP Last administered on 08/06/17 07:56; Start 08/06/17 at 08:00; Stop 08/06/17 at 08:01; Status DC Linezolid 300 ml @ 300 mls/hr Q12HR IV Last administered on 08/06/17 10:06; Start 08/06/17 at 09:00 Acetaminophen/ Hydrocodone Bitart (Lortab 7.5/325) 1 tab PRN Q6HRS PRN PO PAIN Last administered on 08/06/17 10:22; Start 08/06/17 at 09:45 Acetaminophen (Tylenol) 650 mg PRN Q6HRS PRN PO MILD PAIN; Start 08/06/17 at 11:15 Amiodarone HCl (Cordarone) 200 mg DAILY PO ; Start 08/06/17 at 12:00 Apixaban (Eliquis) 5 mg BID PO ; Start 08/06/17 at 12:00 Bisacodyl (Dulcolax Supp) 10 mg PRN DAILY PRN RC CONSTIPATION; Start 08/06/17 at 11:15 Famotidine (Pepcid) 20 mg BID PO ; Start 08/06/17 at 12:00 Ferrous Sulfate (Feosol) 325 mg TID PO ; Start 08/06/17 at 14:00 Fluticasone Propionate (Flonase) 2 spray DAILY NS ; Start 08/06/17 at 12:00 Furosemide (Lasix) 40 mg [id number] PO ; Start 08/06/17 at 14:00; Stop 08/06/17 at 14:00; Status DC Furosemide (Lasix) 40 mg DAILY PO ; Start 08/07/17 at 09:00; Status UNV Hydralazine HCl (Apresoline) 10 mg QID PO ; Start 08/06/17 at 14:00; Stop at 14:00; Status DC Acetaminophen/ Hydrocodone Bitart (Lortab 10/325) 1 tab PRN Q6HRS PRN PO PAIN; Start 08/06/17 at 11:15 Albuterol/ Ipratropium (Duoneb) 3 ml RTQID NEB ; Start 08/06/17 at 12:00 Linagliptin (Tradjenta) 5 mg DAILY PO ; Start 08/06/17 at 12:00 Magnesium Hydroxide (Milk Of Magnesia) 2,400 mg DAILY PRN PO CONSTIPATION; Start 08/06/17 at 11:15 Metolazone (Zaroxolyn) 2.5 mg DAILY PO ; Start 08/06/17 at 12:00 Sacubitril/ Valsartan (Entresto 24 Mg-26 Mg) 1 tab DAILY PO ; Start 08/06/17 at 13:00; Stop 08/06/17 at 13:00; Status DC Senna/Docusate Sodium (Senna Plus) 1 tab DAILY PRN PO CONSTIPATION; Start at 11:15 Atorvastatin Calcium (Lipitor) 80 mg QHS PO ; Start 08/06/17 at 21:00 Benzonatate (Tessalon Perle) 200 mg [id number] PO ; Start 08/06/17 at 14:00 Vitamin D (Vitamin D3) 5,000 unit DAILY PO ; Start 08/07/17 at 09:00 Fenofibrate (Lofibra) 134 mg QHS PO ; Start 08/06/17 at 21:00 Non-Formulary Medication 100 unit QID SQ ; Start 08/06/17 at 13:00; Status UNV Lubiprostone (Amitiza) 24 mcg BIDWMEALS PO ; Start 08/06/17 at 12:00 Pioglitazone HCl (Actos) 30 mg DAILY PO ; Start 08/06/17 at 12:00; Stop at 12:26; Status DC Potassium Chloride (Klor-Con) 10 meq DAILYWBKFT PO ; Start 08/06/17 at 12:00 Insulin Aspart (NovoLOG) 0-9 UNITS QID SQ ; Start 08/06/17 at 17:00 Dextrose (Dextrose 50%-Water Syringe) 12.5 gm PRN Q15MIN PRN IV SEE COMMENTS; Start 08/06/17 at 12:15 Active Scripts Active Reported Tradjenta (Linagliptin) 5 Mg Tablet 5 Mg PO DAILY Senna Plus Tablet (Sennosides/Docusate Sodium) 1 Each Tablet 1 Each PO DAILY PRN Potassium Chloride 10 Meq Capsule.er 20 Meq PO DAILY Actos (Pioglitazone Hcl) 30 Mg Tablet 1 Tab PO DAILY [place] 10-325 Tablet (Acetaminophen/Hydrocodone Bitart) 1 Each Tablet 1 Tab PO PRN Q6HRS PRN Milk Of Magnesia (Magnesium Hydroxide) 400 Mg/5 Ml Oral.susp 30 Ml PO DAILY PRN Metolazone 2.5 Mg Tablet 2.5 Mg PO DAILY Humalog (Insulin Lispro) 100 Unit/1 Ml Insuln.pen 100 Units SQ QID inject as per sliding scale: if 151-200 = 3; 201-250 = 4; 251-200 = 6; 301-350 = 9; 351-400 = 12; 401+ = 12 and call physician; subq four times a day for DM Hydralazine Hcl 10 Mg Tablet 10 Mg PO QID Furosemide 40 Mg Tablet 40 Mg PO BID Fluticasone Propionate Nasal [place] (Fluticasone Propionate) 16 Gm [place].susp 2 [place] NS DAILY Fleet Enema (Na Phos,M-B/Na Phos,Di-Ba) 133 Ml Enema 118 Ml RC PRN PRN Ferrous Sulfate 325 Mg Tablet 325 Mg PO TID Trilipix (Fenofibric Acid (Choline)) 135 Mg Capsule.dr 135 Mg PO HS Famotidine 20 Mg Tablet 20 Mg PO BID Entresto 24 mg-26 mg Tablet (Sacubitril/Valsartan) 1 Each Tablet 1 Each PO DAILY Duoneb 0.5-3(2.5) Mg/3 Ml (Albuterol/Ipratropium) 3 Ml Ampul.neb 3 Ml NEB QID Dulcolax (Bisacodyl) 10 Mg Supp.rect 10 Mg RC PRN DAILY PRN Ear Wax Drops (Carbamide Peroxide) 15 Ml Drops 15 Ml OT INSTILL 5 DROPS IN BOTH EARS ONE TIME A DAY FOR CERUMEN IMPACTION FOR 4 DAYS. LEAVE IN EAR 5 MINUTES BEFORE TREATING OTHER EAR. Vitamin D (Cholecalciferol (Vitamin D3)) 2,000 Unit Capsule 5,000 Unit PO DAILY Benzonatate 200 Mg Capsule 200 Mg PO TID Eliquis (Apixaban) 5 Mg Tablet 5 Mg PO BID Amiodarone Hcl 200 Mg Tablet 200 Mg PO DAILY Acetaminophen 500 Mg Tablet 650 Mg PO Q4HRS PRN Lipitor (Atorvastatin Calcium) 80 Mg Tablet 80 Mg PO HS Vitals/I & O Vital Sign - Last 24 Hours 08/05/17 08/05/17 08/05/17 08/05/17 16:32 17:09 17:18 18:43 Temp 99.8 99.8 Pulse 72 69 62 Resp 36 36 36 B/P (MAP) 131/53 (79) 131/61 (84) 154/67 (96) Pulse Ox 81 94 97 97 O2 Delivery Room Air Nasal Cannula Nasal Cannula Nasal Cannula O2 Flow Rate 5.0 5.0 5.0 08/05/17 08/05/17 08/05/17 08/05/17 19:45 20:00 20:00 20:15 Pulse 58 56 58 Resp 28 28 35 B/P (MAP) 154/62 (92) 123/59 (80) 150/59 (89) Pulse Ox 95 97 94 O2 Delivery Nasal Cannula Nasal Cannula Nasal Cannula Nasal Cannula O2 Flow Rate 5.0 5.0 5.0 5.0 08/05/17 08/05/17 08/05/17 08/05/17 20:45 21:15 22:15 22:20 Temp 98.3 98.3 Pulse 60 58 56 58 Resp 39 36 33 27 B/P (MAP) 135/71 (92) 156/67 (96) 152/60 (90) 142/70 (94) Pulse Ox 93 91 92 95 O2 Delivery Nasal Cannula Nasal Cannula Nasal Cannula Nasal Cannula O2 Flow Rate 5.0 5.0 5.0 5.0 08/05/17 08/05/17 08/06/17 08/06/17 23:15 23:59 00:00 01:00 Temp 98.6 98.6 Pulse 66 63 62 Resp 31 28 40 B/P (MAP) 124/55 (78) 113/59 (77) 137/61 (86) Pulse Ox 89 91 90 O2 Delivery Nasal Cannula Nasal Cannula Nasal Cannula Nasal Cannula O2 Flow Rate 5.0 5.0 5.0 5.0 08/06/17 08/06/17 08/06/17 08/06/17 02:00 03:00 04:00 04:00 Pulse 68 68 71 Resp 33 27 37 B/P (MAP) 151/67 (95) 127/49 (75) 149/65 (93) Pulse Ox 94 93 92 O2 Delivery Nasal Cannula Nasal Cannula Nasal Cannula Nasal Cannula O2 Flow Rate 5.0 5.0 5.0 5.0 08/06/17 08/06/17 08/06/17 08/06/17 05:00 06:00 07:00 08:00 Temp 98.7 98.7 Pulse 63 72 71 Resp 25 34 33 B/P (MAP) 135/59 (84) 116/46 (69) 140/66 (90) Pulse Ox 95 93 92 O2 Delivery Nasal Cannula Nasal Cannula Nasal Cannula Nasal Cannula O2 Flow Rate 5.0 5.0 5.0 5.0 08/06/17 08/06/17 08/06/17 08/06/17 08:00 09:00 10:22 11:29 Temp 97.8 97.8 Pulse 70 74 Resp 34 36 36 26 B/P (MAP) 134/60 (84) 140/58 (85) Pulse Ox 93 93 94 95 O2 Delivery Nasal Cannula Nasal Cannula Nasal Cannula Nasal Cannula O2 Flow Rate 5.0 5.0 5.0 5.0 Intake and Output 08/06/17 08/06/17 08/07/17 15:00 23:00 07:00 Intake Total 120 ml Output Total 1150 ml Balance -1030 ml JIGNA COPPOLA III DO Aug 06, 2017 12:48
[2017-08-06] MEDS ORDERED: ALBUMIN HUMAN 25% 100 ML IV ONE (13:00)
[2017-08-06] MEDS ORDERED: SACUBITRIL/VALSARTAN 24/26MG TABLET. PO SCH (13:00)
[2017-08-06] MEDS ORDERED: NON FORMULARY ITEM (Insulin Lispro (Humalog) 100 UNIT) SQ SCH (13:00)
--- NOTE | 2017-08-06 13:09 | RAD ---
AP view of the Chest 08/06/2017 2:00 AM Indication: Follow-up congestive heart failure Comparison: Chest radiograph, yesterday Findings: There is slight improvement in the persistent central vascular congestion, interstitial edema, and a small to moderate left pleural effusion. No pneumothorax is identified. The heart remains enlarged. No acute osseous changes are seen. Impression: Slight interval improvement in central vascular congestion. Otherwise stable findings of congestive heart failure
[2017-08-06] MEDS: IPRATRPIUM/ALBUTEROL 0.5/2.5MG 3 ML NEBU. NEB SCH ×3 (13:19→19:12)
[2017-08-06 13:25] LABS: HEMATOCRIT 23.8 % (39.0-53.0); HEMOGLOBIN 7.9 g/dL (13.0-17.5); RED BLOOD COUNT 2.56 x10^6/uL (4.30-5.70); RED CELL DISTRIBUTION WIDTH 14.4 % (11.5-14.5); WHITE BLOOD COUNT 7.6 x10^3/uL (4.0-11.0)
[2017-08-06 13:26] LABS: HCO3 ABG 29 mmol/L (21-28); PCO2 ABG 38 mmHg (35-46); PO2 ABG 126 mmHg (65-108); SAT O2 ABG 98 % (92-99)
[2017-08-06 13:27] LABS: FIO2 ABG 40
--- NOTE | 2017-08-06 13:51 | CONS ---
DATE OF CONSULTATION: 08/06/2017 PATIENT'S ROOM: ICU 11. REQUESTING PHYSICIAN: Dr. Richardson. REASON FOR CONSULTATION: Positive sepsis screen. HISTORY OF PRESENT ILLNESS: The patient is a pleasant 76-year-old gentleman with history of obesity as well as atrial fibrillation, who approximately the or so june, which is around his anniversary, fell down the stairs. He was taken to [facility], where he was stabilized and transferred to [facility]. Then, last evening, he is uncertain what happened, but he became acutely short of air. He denies any fevers or chills or sweats. There was a document of a low grade subjective fever, and he was transferred to [facility]. On arrival, he had a white count of 12.6, with 3% bands, 86 segs and was found to have a creatinine of 2.6. He did have a creatinine of 1.6 back in 03/2014. Urinalysis was acquired, did not look consistent with urinary tract infection, and he does have a Aleman in place. Influenza screen was negative. Chest x-ray was taken by my view as there is no official report, appears he has bilateral infiltrates and fluid consistent with congestive heart failure. He underwent a V/Q scan, which was reported out as limited exam, no obvious mismatch perfusion defect was seen. Because of his acute renal failure, shortness of air, he was admitted to the Intensive Care Unit. ____ bed. He is asking for water, and he is somewhat of a questionable historian. He does have some mild tachypnea. He denies any fevers, chills or sweats. He has no gross headaches. He has no sore throat. He has pain in his shoulders, left hand, his lower extremities, his buttock area secondary to his fall. PAST MEDICAL HISTORY: Positive for COPD, asthma, obesity, diabetes, hypertension, hyperlipidemia, prostate cancer, atrial fibrillation, dislocation of the right shoulder, combined diastolic and systolic congestive heart failure. PAST SURGICAL HISTORY: Positive for prostatectomy as well as hernia repair, right rotator cuff repair, cataract removals. REVIEW OF SYSTEMS: Otherwise negative except as mentioned above. ALLERGIES: LISTED SIMVASTATIN, SITAGLIPTIN PHOSPHATE. SOCIAL HISTORY: He is . No tobacco. FAMILY HISTORY: Noncontributory. CURRENT MEDICATIONS: He did receive azithromycin and Rocephin x 1. Currently, he is on Zosyn, is on vancomycin, Lovenox. He did receive a dose of Lasix, a dose of Solu-Medrol. PHYSICAL EXAMINATION: VITAL SIGNS: Temperature of 99.8 axillary on arrival, currently at 98.7. Pulse 72, respirations 34, is on nasal cannula oxygen 5 liters, satting 93%, blood pressure 116/46. CONSTITUTIONAL: He is alert. He is obese. He is little tachypneic. Pupils are status post cataract. Normal conjunctivae. Oral cavity, pharynx is dry. NECK: Supple, no JVD. LUNGS: Have some crackles bilaterally. HEART: S1, S2. No gross murmur. ABDOMEN: Obese, soft, nontender, nondistended, positive bowel sounds. Aleman is in place. Peripheral IV sites are without signs of any complications. EXTREMITIES: Bilateral lower extremities have Tubigrips in place. There is trace to 1+ edema. SKIN: Warm without signs of generalized rash. NEUROLOGIC: He is answering questions. Moves all extremities. PSYCHIATRIC: Affect is pleasant. LABORATORY DATA: White count on arrival was 12.6, currently 7.4. Hemoglobin 7.3, platelets of 330, down from 405, neutrophils are 93. Creatinine this morning of 2.4, BUN of 125, glucose 250. Normal liver function study tests, although his albumin is 1.5. Urinalysis was clean. Influenza screen is negative. Radiology reviewed in history of present illness. IMPRESSION: 1. Leukocytosis, present on admission, status post Solu-Medrol x 1. 2. Questionable healthcare-associated pneumonia. 3. Anemia with uremia. 4. Congestive heart failure with tachypnea. 5. Acute kidney injury. 6. Atrial fibrillation. RECOMMENDATIONS: For now, we will discontinue the vancomycin given his acute renal failure. I will add Zyvox, check a procalcitonin. Continue Zosyn, hold further atypical coverage. Follow up labs and cultures. We will redose Lasix x 1 now based on chest x-ray and tachypnea. May need packed red blood cells. Await cardiology evaluation. I did discuss with [facility]. He did not have any positive culture results ____ on admission. Thank you for allowing me to participate in the patient's care. Should you have further questions, please do not hesitate to contact me. I spent 35 minutes critical care time. EDIS BREWER MD DR: KEYLA/michi JOB#: [id number] / [id number]
[2017-08-06] MEDS ORDERED: hydrALAZINE 10 MG TABLET PO SCH (14:00)
[2017-08-06] MEDS ORDERED: FUROSEMIDE 40 MG TABLET. PO SCH (14:00)
[2017-08-06] MEDS: BENZONATATE 100 MG CAPSULE. PO SCH ×2 (14:00→20:39)
--- NOTE | 2017-08-06 15:05 | CARD ---
APPROVED REPORT EXAM: Two-dimensional and M-mode echocardiogram with Doppler and color Doppler. Other Information Quality : Good INDICATION Congestive Heart Failure 2D DIMENSIONS RVDd3.1 (2.9-3.5cm)Left Atrium(2D)3.8 (1.6-4.0cm) IVSd1.1 (0.7-1.1cm)Aortic Root(2D)3.2 (2.0-3.7cm) LVDd5.4 (3.9-5.9cm)LVOT Diameter2.5 (1.8-2.4cm) PWd1.1 (0.7-1.1cm)LVDs3.0 (2.5-4.0cm) FS (%) 30.0 %SV106.1 ml LVEF(%)60.0 (>50%) Aortic Valve AoV Peak Hayden.190.5cm/sAoV VTI38.1cm AO Peak GR.14.5mmHgLVOT VTI 25.07cm AO Mean GR.7mmHgAVA (VTI)3.20cm2 Mitral Valve MV E Hccmwzps560.7cm/sMV DECEL FLSS515mw MV A Wxjqxohm63.3cm/sE/A Ratio1.5 TDI Lateral E' P. V7.66cm/sMedial E' P. V5.60cm/s E/Lateral E'14.2E/Medial E'19.4 Tricuspid Valve TR P. Rhmlngqz796es/sRAP [id number] TR Peak Gr.05exSlLIBZ47nbXw LEFT VENTRICLE The left ventricle is normal size. There is normal left ventricular wall thickness. The left ventricu lar systolic function is normal. The Ejection Fraction is 60-65%. There is normal LV segmental wall m otion. RIGHT VENTRICLE The right ventricle is normal size. The right ventricular systolic function is normal. ATRIA The left atrium size is normal. The right atrium is mildly dilated. The interatrial septum is intact with no evidence for an atrial septal defect or patent foramen ovale as noted on 2-D or Doppler imagi ng. AORTIC VALVE The aortic valve is calcified but opens well. Doppler and Color Flow revealed no significant aortic r egurgitation. There is no significant aortic valvular stenosis. MITRAL VALVE The mitral valve is normal in structure and function. There is no evidence of mitral valve prolapse. There is no mitral valve stenosis. Doppler and Color-flow revealed trace mitral regurgitation. TRICUSPID VALVE The tricuspid valve is normal in structure and function. Doppler and Color Flow revealed mild tricusp id regurgitation. There is moderate to severe pulmonary hypertension. The PA pressure was estimated a t 60 mmHg. There is no tricuspid valve stenosis. PULMONIC VALVE The pulmonary valve is normal in structure and function. Doppler and Color Flow revealed trace pulmon ic valvular regurgitation. There is no pulmonic valvular stenosis. GREAT VESSELS The aortic root is normal in size. The ascending aorta is not well seen. The IVC was not visualized. PERICARDIAL EFFUSION There is no evidence of significant pericardial effusion. Critical Notification Critical Value: No <Conclusion> The left ventricular systolic function is normal. The Ejection Fraction is 60-65%. There is normal LV segmental wall motion. Trace mitral regurgitation. Mild tricuspid regurgitation. There is moderate to severe pulmonary hypertension. The PA pressure was estimated at 60 mmHg. There is no evidence of significant pericardial effusion.
[2017-08-06] MEDS: AMIODARONE HCL 200 MG TABLET. PO SCH (15:09)
[2017-08-06] MEDS: APIXABAN 5 MG TABLET. PO SCH ×2 (15:09→20:39)
[2017-08-06] MEDS: FERROUS SULFATE 325 MG TABLET. PO SCH ×2 (15:10→20:39)
[2017-08-06] MEDS: POTASSIUM CHLORIDE 10 MEQ TABLET.ER. PO SCH (15:10)
[2017-08-06] MEDS: LINAGLIPTIN 5 MG TABLET PO SCH (15:10)
[2017-08-06] MEDS: FAMOTIDINE 20 MG TABLET. PO SCH ×2 (15:10→20:39)
[2017-08-06] MEDS: metOLazone 2.5 MG TABLET PO SCH (15:10)
[2017-08-06] MEDS: HYDROcodone/APAP 10/325 1 TAB TABLET PO PRN ×2 (16:26→22:41)
[2017-08-06] MEDS: INSULIN ASPART 300 UNITS/3 ML INSULN.PEN SQ SCH ×2 (17:57→20:44)
--- NOTE | 2017-08-06 19:44 | CONS ---
DATE OF CONSULTATION: 08/06/2017 ATTENDING PHYSICIAN: Naty Richardson MD REASON FOR CONSULTATION: The patient seen in pulmonary consultation at the request of Dr. Richardson for acute respiratory failure, present upon admission. HISTORY OF PRESENT ILLNESS: The patient is a 76-year-old that was at [facility]. He had been hospitalized at [facility] after suffering a fall. He has some chronic lower extremity cellulitis and edema. Presented with increasing respiratory distress. Chest x-ray yesterday revealed bilateral pulmonary infiltrates. I reviewed the current x-ray, which has improved. The patient was given some IV Lasix. He is currently feeling better. He is awake, alert, following commands. He denies fever, chills or night sweats. He has never smoked, does not normally wear oxygen at home. He has not had a DVT or pulmonary embolism in the past. VQ scans were performed today, unfortunately it is a limited exam and cannot be interpreted, but there are no obvious unmatched perfusion defects. PAST MEDICAL HISTORY: Otherwise remarkable for chronic diastolic heart failure, obesity, diabetes, hypertension, hyperlipidemia, prostate cancer status post prostatectomy, atrial fibrillation, dislocation of the right shoulder. PAST SURGICAL HISTORY: Status post prostatectomy, hernia repair, rotator cuff repair. 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 He has never smoked. REVIEW OF SYSTEMS: As indicated above, otherwise, a 10-point system was reviewed and negative. ALLERGIES: SIMVASTATIN AND ALSO SITAGLIPTIN. FAMILY HISTORY: Noncontributory in this case. PHYSICAL EXAMINATION: VITAL SIGNS: Stable. He is currently on 5 liters. The nurse indicates that his respiratory rate is greatly decreased. HEENT: Eyes: The sclerae were nonicteric. NECK: Jugular venous distention could not be assessed secondary to body habitus. No lymphadenopathy. CHEST: Full expansion. LUNGS: Anteriorly were clear. No wheezes. CARDIOVASCULAR: Regular rate and rhythm with S1, S2, no S3. ABDOMEN: Soft, obese. EXTREMITIES: He had some dressing in place with minimal edema. NEUROLOGIC: The patient was awake, alert, following commands. A detailed neuro exam was not performed. LABORATORY DATA: White count yesterday was elevated, today it is normal. Hemoglobin and hematocrit were chronically low. Arterial blood gas this morning; pH of 7.50, PaCO2 of 38, pO2 of 126 on 40%. Electrolytes were noted. BUN and creatinine were elevated. Upon admission, his albumin was low. IMPRESSION: 1. Acute respiratory failure secondary to [id number] diastolic and systolic heart failure. 2. Abnormal x-ray compatible with congestive heart failure. 3. VQ scan revealing no unmatched perfusion defects, poor study, clinical suspicion for pulmonary embolism is low. 4. Chronic kidney disease. 5. Paroxysmal atrial fibrillation. 6. Severe protein malnutrition, present upon admission. 7. Hematuria. 8. Hypertension. 9. Clinical presentation compatible with obstructive sleep apnea. 10. Leukocytosis. PLAN: 1. I suspect most of the patient's respiratory distress was related to pulmonary edema, he has greatly improved with IV Lasix, clinical suspicion for pneumonia is low. 2. I have noted Infectious Disease has been consulted. Procalcitonin is pending. Continue empiric antibiotics for now. 3. We will attempt BiPAP at bedtime. 4. Venous Doppler of the lower extremities. 5. Follow Cardiology and Nephrology input. I do appreciate the privilege in sharing in the patient's care. Total cumulative critical care time of 40 minutes. TRACEY LOVE MD DR: CARLOS/michi JOB#: [id number] / [id number]
[2017-08-06] MEDS: FENOFIBRATE,MICRONIZED 134 MG CAPSULE PO SCH (20:39)
[2017-08-06] MEDS: ATORVASTATIN CALCIUM 40 MG TABLET. PO SCH (20:39)
[2017-08-06] MEDS ORDERED: APIXABAN 2.5 MG TABLET. PO SCH (21:00)
[2017-08-06] MEDS ORDERED: VANCOMYCIN 2 GM in IV NORMAL SALINE 500ML BAG 500 ML IV SCH (23:00)
[2017-08-07] VITALS (15 sets, daily range): BP systolic 83–109; BP diastolic 38–52
[2017-08-07] MEDS: PIPERACILLIN/TAZOBACTAM 3.375 GM in IV NORMAL SALINE 50ML 50 ML IV SCH (05:40)
[2017-08-07 05:47] LABS: BASO % 0 % (0-3); EOS % 0 % (0-3); HEMOGLOBIN 7.8 g/dL (13.0-17.5); LYMPH # 0.6 x10^3/uL (1.0-4.8); LYMPH % 8 % (24-48); MEAN CORPUSCULAR HEMOGLOBIN 32 pg (25-35); MEAN CORPUSCULAR HGB CONC 34 g/dL (31-37); MEAN CORPUSCULAR VOLUME 93 fL (79-100); MONO % 6 % (0-9); NEUT % 86 % (31-73); PLATELET COUNT 416 x10^3/uL (140-400); RED BLOOD COUNT 2.47 x10^6/uL (4.30-5.70); RED CELL DISTRIBUTION WIDTH 14.7 % (11.5-14.5); WHITE BLOOD COUNT 7.6 x10^3/uL (4.0-11.0)
[2017-08-07 06:08] LABS: ALBUMIN 1.9 g/dL (3.4-5.0); ALBUMIN/GLOBULIN RATIO 0.5 (1.0-1.7); CALCIUM 8.5 mg/dL (8.5-10.1); CREATININE 2.5 mg/dL (0.7-1.3); GFR 25.1; POTASSIUM 4.2 mmol/L (3.5-5.1); TOTAL PROTEIN 6.1 g/dL (6.4-8.2)
--- NOTE | 2017-08-07 07:17 | RAD ---
EXAM: Bilateral lower extremity venous Doppler. HISTORY: Respiratory failure. COMPARISON: None. FINDINGS: Grayscale and Doppler analysis of the both lower extremity deep venous systems was performed with graded compression and augmentation. The common femoral, greater saphenous, superficial femoral, popliteal and calf veins were assessed. Visualization is limited by habitus. There is no evidence of deep venous thrombosis. IMPRESSION: 1. No evidence of deep venous thrombosis.
--- NOTE | 2017-08-07 07:23 | PDOC ---
Infectious Disease Note ROS ROS GEN: Denies fevers, chills, sweats HEENT: Denies blurred vision, sore throat CV: Denies chest pain RESP: Denies shortness of air, cough GI: Denies n/v/d NEURO: Denies confusion, dizziness MSK: Denies weakness, joint pain/swelling Vital Sign Vital Signs Vital Signs Date Time Temp Pulse Resp B/P (MAP) Pulse Ox O2 Delivery O2 Flow Rate FiO2 08/07/17 06:00 64 22 92/51 (65) 97 Nasal Cannula 5.0 08/07/17 04:00 97.5 97.5 Physical Exam PHYSICAL EXAM GENERAL: NAD, Alert HEENT: PERRL, OC/OP NECK: Supple, no JVD, no LN LUNGS: Clear HEART: S1S2, no gallop, no murmur ABD: Soft, NT, no organomegaly, no rebound EXT: No edema, no cyanosis CUSTOMER ACCOUNT TECHNICIAN: Alert, oriented x 3, no focal neurologic deficit SKIN: No rash IV: ok Labs Lab Laboratory Tests Test 08/06/17 10:10 08/06/17 12:28 08/06/17 13:15 08/06/17 17:36 Clostridium difficile Toxin (PCR) Positive (Negative) O2 Saturation 98 % (92-99) Arterial Blood pH 7.50 (7.35-7.45) Arterial Blood pCO2 at Patient Temp 38 mmHg (35-46) Arterial Blood pO2 at Patient Temp 126 mmHg (65-108) Arterial Blood HCO3 29 mmol/L (21-28) Arterial Blood Base Excess 6 mmol/L (-3-3) FiO2 40 White Blood Count 7.6 x10^3/uL (4.0-11.0) Red Blood Count 2.56 x10^6/uL (4.30-5.70) Hemoglobin 7.9 g/dL (13.0-17.5) Hematocrit 23.8 % (39.0-53.0) Mean Corpuscular Volume 93 fL (79-100) Mean Corpuscular Hemoglobin 31 pg (25-35) Mean Corpuscular Hemoglobin Concent 33 g/dL (31-37) Red Cell Distribution Width 14.4 % (11.5-14.5) Platelet Count 403 x10^3/uL (140-400) Glucose (Fingerstick) 246 mg/dL (70-99) Test 08/06/17 20:42 08/07/17 05:15 Glucose (Fingerstick) 209 mg/dL (70-99) White Blood Count 7.6 x10^3/uL (4.0-11.0) Red Blood Count 2.47 x10^6/uL (4.30-5.70) Hemoglobin 7.8 g/dL (13.0-17.5) Hematocrit 23.0 % (39.0-53.0) Mean Corpuscular Volume 93 fL (79-100) Mean Corpuscular Hemoglobin 32 pg (25-35) Mean Corpuscular Hemoglobin Concent 34 g/dL (31-37) Red Cell Distribution Width 14.7 % (11.5-14.5) Platelet Count 416 x10^3/uL (140-400) Neutrophils (%) (Auto) 86 % (31-73) Lymphocytes (%) (Auto) 8 % (24-48) Monocytes (%) (Auto) 6 % (0-9) Eosinophils (%) (Auto) 0 % (0-3) Basophils (%) (Auto) 0 % (0-3) Neutrophils # (Auto) 6.5 x10^3uL (1.8-7.7) Lymphocytes # (Auto) 0.6 x10^3/uL (1.0-4.8) Monocytes # (Auto) 0.5 x10^3/uL (0.0-1.1) Eosinophils # (Auto) 0.0 x10^3/uL (0.0-0.7) Basophils # (Auto) 0.0 x10^3/uL (0.0-0.2) Sodium Level 143 mmol/L (136-145) Potassium Level 4.2 mmol/L (3.5-5.1) Chloride Level 104 mmol/L (98-107) Carbon Dioxide Level 33 mmol/L (21-32) Anion Gap 6 (6-14) Blood Urea Nitrogen 128 mg/dL (8-26) Creatinine 2.5 mg/dL (0.7-1.3) Estimated GFR (Cockcroft-Gault) 25.1 BUN/Creatinine Ratio 51 (6-20) Glucose Level 196 mg/dL (70-99) Calcium Level 8.5 mg/dL (8.5-10.1) Total Bilirubin 1.0 mg/dL (0.2-1.0) Aspartate Amino Transf (AST/SGOT) 26 U/L (15-37) Alanine Aminotransferase (ALT/SGPT) 24 U/L (16-63) Alkaline Phosphatase 64 U/L (46-116) Total Protein 6.1 g/dL (6.4-8.2) Albumin 1.9 g/dL (3.4-5.0) Albumin/Globulin Ratio 0.5 (1.0-1.7) Objective Assessment Leukocytosis POA now s/p solumedrol times one C-diff + 08/06 ? Sepsis 1/2 + cults GPC 08/05 MRSA + screen ? HCAP - likely more CHF -responded well to diuresis Anemia with uremia CHF with tachypnea -better AMY - persistent uremia Afib Plan Plan of Care Cont zyvox for now f/u blood cult D/c Zosyn Change to po Vanc F/u labs and cults EDIS BREWER MD Aug 07, 2017 07:23
[2017-08-07] MEDS: LUBIPROSTONE 8 MCG CAPSULE PO SCH ×2 (08:00→16:15)
[2017-08-07] MEDS ORDERED: ANTI-COAG MONITOR BY PHARMACY. MC PRN (08:00)
[2017-08-07] MEDS: IPRATRPIUM/ALBUTEROL 0.5/2.5MG 3 ML NEBU. NEB SCH ×4 (08:06→19:31)
--- NOTE | 2017-08-07 08:30 | RAD ---
Single view of the Chest 08/07/2017 7:00 AM Indication: Renal failure Comparison: Chest radiograph August 06, 2017 Findings: Redemonstration of cardiomegaly, central vascular congestion, interstitial thickening, and a small to moderate left pleural effusion. No acute osseous changes are identified. No pneumothorax is seen. Impression: Stable appearance of the chest including cardiomegaly, central vascular congestion, probable interstitial edema, and a small to moderate left effusion.
--- NOTE | 2017-08-07 08:42 | PDOC ---
PULMONARY PROGRESS NOTES Subjective PT LESS SOA Vitals Vital Signs Date Time Temp Pulse Resp B/P (MAP) Pulse Ox O2 Delivery O2 Flow Rate FiO2 08/07/17 08:08 99 Nasal Cannula 3.0 08/07/17 07:00 60 24 101/48 (65) 08/07/17 04:00 97.5 97.5 ROS: No Nausea, No Chest Pain, No Abdominal Pain, No Increase Cough General: Alert Lungs: Clear, Crackles Cardiovascular: S1, S2 Abdomen: Soft, Non-tender Neuro Exam: Alert Extremities: Other (EDEMA) Labs Laboratory Tests Test 08/05/17 17:05 08/05/17 17:10 08/05/17 18:10 08/05/17 19:30 White Blood Count 12.6 x10^3/uL (4.0-11.0) Red Blood Count 2.68 x10^6/uL (4.30-5.70) Hemoglobin 8.4 g/dL (13.0-17.5) Hematocrit 25.1 % (39.0-53.0) Mean Corpuscular Volume 94 fL (79-100) Mean Corpuscular Hemoglobin 31 pg (25-35) Mean Corpuscular Hemoglobin Concent 33 g/dL (31-37) Red Cell Distribution Width 15.0 % (11.5-14.5) Platelet Count 405 x10^3/uL (140-400) Neutrophils (%) (Auto) 86 % (31-73) Lymphocytes (%) (Auto) 6 % (24-48) Monocytes (%) (Auto) 7 % (0-9) Eosinophils (%) (Auto) 1 % (0-3) Basophils (%) (Auto) 1 % (0-3) Neutrophils # (Auto) 10.9 x10^3uL (1.8-7.7) Lymphocytes # (Auto) 0.8 x10^3/uL (1.0-4.8) Monocytes # (Auto) 0.8 x10^3/uL (0.0-1.1) Eosinophils # (Auto) 0.1 x10^3/uL (0.0-0.7) Basophils # (Auto) 0.1 x10^3/uL (0.0-0.2) Segmented Neutrophils % 86 % (35-66) Band Neutrophils % 3 % (0-9) Lymphocytes % 4 % (24-48) Monocytes % 5 % (0-10) Eosinophils % 1 % (0-5) Myelocytes % 1 % (0-0) Toxic Granulation Slight Platelet Estimate Adequate (ADEQUATE) Hypochromasia Slight Anisocytosis Slight Sodium Level 138 mmol/L (136-145) Potassium Level 5.8 mmol/L (3.5-5.1) Chloride Level 101 mmol/L (98-107) Carbon Dioxide Level 34 mmol/L (21-32) Anion Gap 3 (6-14) Blood Urea Nitrogen 120 mg/dL (8-26) Creatinine 2.6 mg/dL (0.7-1.3) Estimated GFR (Cockcroft-Gault) 24.0 Glucose Level 259 mg/dL (70-99) Lactic Acid Level 1.8 mmol/L (0.4-2.0) Calcium Level 8.4 mg/dL (8.5-10.1) Magnesium Level 2.8 mg/dL (1.8-2.4) Total Bilirubin 1.1 mg/dL (0.2-1.0) Direct Bilirubin 0.4 mg/dL (0.0-0.2) Aspartate Amino Transf (AST/SGOT) 45 U/L (15-37) Alanine Aminotransferase (ALT/SGPT) 26 U/L (16-63) Alkaline Phosphatase 76 U/L (46-116) Creatine Kinase 122 U/L (39-308) Creatine Kinase MB (Mass) < 0.5 ng/mL (0.0-3.6) Creatine Kinase MB Relative Index 0.4 % (0-4) Troponin I Quantitative 0.038 ng/mL (0.000-0.055) HS-Sfr-S-Type Natriuretic Peptide 5157 pg/mL (0-449) Total Protein 6.5 g/dL (6.4-8.2) Albumin 1.6 g/dL (3.4-5.0) Lipase 160 U/L (73-393) Thyroid Stimulating Hormone (TSH) 3.670 uIU/mL (0.358-3.74) Urine Collection Type U cath Urine Color [place] Urine Clarity Turbid Urine pH 5.0 Urine Specific [place] 1.020 Urine Protein 100 mg/dL (NEG-TRACE) Urine Glucose (UA) Negative mg/dL (NEG) Urine Ketones (Stick) Negative mg/dL (NEG) Urine Blood Large (NEG) Urine Nitrite Negative (NEG) Urine Bilirubin Small (NEG) Urine Urobilinogen Dipstick 1.0 mg/dL (0.2 mg/dL) Urine Leukocyte Esterase Small (NEG) Urine RBC >40 /HPF (0-2) Urine WBC Occ /HPF (0-4) Urine Amorphous Sediment Present /HPF Urine Bacteria Few /HPF (0-FEW) Urine Hyaline Casts Moderate /HPF Influenza Type A Antigen Negative (NEGATIVE) Influenza Type B Antigen Negative (NEGATIVE) Nasal Screen MRSA (PCR) Positive (Negative) Test 08/05/17 20:00 08/06/17 00:25 08/06/17 06:00 08/06/17 10:10 Lactic Acid Level 1.0 mmol/L (0.4-2.0) Troponin I Quantitative 0.036 ng/mL (0.000-0.055) 0.032 ng/mL (0.000-0.055) White Blood Count 7.4 x10^3/uL (4.0-11.0) Red Blood Count 2.37 x10^6/uL (4.30-5.70) Hemoglobin 7.3 g/dL (13.0-17.5) Hematocrit 22.3 % (39.0-53.0) Mean Corpuscular Volume 94 fL (79-100) Mean Corpuscular Hemoglobin 31 pg (25-35) Mean Corpuscular Hemoglobin Concent 33 g/dL (31-37) Red Cell Distribution Width 14.7 % (11.5-14.5) Platelet Count 330 x10^3/uL (140-400) Neutrophils (%) (Auto) 93 % (31-73) Lymphocytes (%) (Auto) 6 % (24-48) Monocytes (%) (Auto) 1 % (0-9) Eosinophils (%) (Auto) 0 % (0-3) Basophils (%) (Auto) 0 % (0-3) Neutrophils # (Auto) 6.9 x10^3uL (1.8-7.7) Lymphocytes # (Auto) 0.4 x10^3/uL (1.0-4.8) Monocytes # (Auto) 0.1 x10^3/uL (0.0-1.1) Eosinophils # (Auto) 0.0 x10^3/uL (0.0-0.7) Basophils # (Auto) 0.0 x10^3/uL (0.0-0.2) Sodium Level 142 mmol/L (136-145) Potassium Level 5.1 mmol/L (3.5-5.1) Chloride Level 104 mmol/L (98-107) Carbon Dioxide Level 32 mmol/L (21-32) Anion Gap 6 (6-14) Blood Urea Nitrogen 125 mg/dL (8-26) Creatinine 2.4 mg/dL (0.7-1.3) Estimated GFR (Cockcroft-Gault) 26.3 BUN/Creatinine Ratio 52 (6-20) Glucose Level 250 mg/dL (70-99) Calcium Level 7.8 mg/dL (8.5-10.1) Total Bilirubin 0.8 mg/dL (0.2-1.0) Aspartate Amino Transf (AST/SGOT) 30 U/L (15-37) Alanine Aminotransferase (ALT/SGPT) 22 U/L (16-63) Alkaline Phosphatase 68 U/L (46-116) Total Protein 5.4 g/dL (6.4-8.2) Albumin 1.5 g/dL (3.4-5.0) Albumin/Globulin Ratio 0.4 (1.0-1.7) Procalcitonin 0.48 ng/mL (0.00-0.10) Clostridium difficile Toxin (PCR) Positive (Negative) Test 08/06/17 12:28 08/06/17 13:15 08/06/17 17:36 08/06/17 20:42 O2 Saturation 98 % (92-99) Arterial Blood pH 7.50 (7.35-7.45) Arterial Blood pCO2 at Patient Temp 38 mmHg (35-46) Arterial Blood pO2 at Patient Temp 126 mmHg (65-108) Arterial Blood HCO3 29 mmol/L (21-28) Arterial Blood Base Excess 6 mmol/L (-3-3) FiO2 40 White Blood Count 7.6 x10^3/uL (4.0-11.0) Red Blood Count 2.56 x10^6/uL (4.30-5.70) Hemoglobin 7.9 g/dL (13.0-17.5) Hematocrit 23.8 % (39.0-53.0) Mean Corpuscular Volume 93 fL (79-100) Mean Corpuscular Hemoglobin 31 pg (25-35) Mean Corpuscular Hemoglobin Concent 33 g/dL (31-37) Red Cell Distribution Width 14.4 % (11.5-14.5) Platelet Count 403 x10^3/uL (140-400) Glucose (Fingerstick) 246 mg/dL (70-99) 209 mg/dL (70-99) Test 08/07/17 05:15 White Blood Count 7.6 x10^3/uL (4.0-11.0) Red Blood Count 2.47 x10^6/uL (4.30-5.70) Hemoglobin 7.8 g/dL (13.0-17.5) Hematocrit 23.0 % (39.0-53.0) Mean Corpuscular Volume 93 fL (79-100) Mean Corpuscular Hemoglobin 32 pg (25-35) Mean Corpuscular Hemoglobin Concent 34 g/dL (31-37) Red Cell Distribution Width 14.7 % (11.5-14.5) Platelet Count 416 x10^3/uL (140-400) Neutrophils (%) (Auto) 86 % (31-73) Lymphocytes (%) (Auto) 8 % (24-48) Monocytes (%) (Auto) 6 % (0-9) Eosinophils (%) (Auto) 0 % (0-3) Basophils (%) (Auto) 0 % (0-3) Neutrophils # (Auto) 6.5 x10^3uL (1.8-7.7) Lymphocytes # (Auto) 0.6 x10^3/uL (1.0-4.8) Monocytes # (Auto) 0.5 x10^3/uL (0.0-1.1) Eosinophils # (Auto) 0.0 x10^3/uL (0.0-0.7) Basophils # (Auto) 0.0 x10^3/uL (0.0-0.2) Sodium Level 143 mmol/L (136-145) Potassium Level 4.2 mmol/L (3.5-5.1) Chloride Level 104 mmol/L (98-107) Carbon Dioxide Level 33 mmol/L (21-32) Anion Gap 6 (6-14) Blood Urea Nitrogen 128 mg/dL (8-26) Creatinine 2.5 mg/dL (0.7-1.3) Estimated GFR (Cockcroft-Gault) 25.1 BUN/Creatinine Ratio 51 (6-20) Glucose Level 196 mg/dL (70-99) Calcium Level 8.5 mg/dL (8.5-10.1) Total Bilirubin 1.0 mg/dL (0.2-1.0) Aspartate Amino Transf (AST/SGOT) 26 U/L (15-37) Alanine Aminotransferase (ALT/SGPT) 24 U/L (16-63) Alkaline Phosphatase 64 U/L (46-116) Total Protein 6.1 g/dL (6.4-8.2) Albumin 1.9 g/dL (3.4-5.0) Albumin/Globulin Ratio 0.5 (1.0-1.7) Laboratory Tests Test 08/06/17 10:10 08/06/17 12:28 08/06/17 13:15 08/06/17 17:36 Clostridium difficile Toxin (PCR) Positive (Negative) O2 Saturation 98 % (92-99) Arterial Blood pH 7.50 (7.35-7.45) Arterial Blood pCO2 at Patient Temp 38 mmHg (35-46) Arterial Blood pO2 at Patient Temp 126 mmHg (65-108) Arterial Blood HCO3 29 mmol/L (21-28) Arterial Blood Base Excess 6 mmol/L (-3-3) FiO2 40 White Blood Count 7.6 x10^3/uL (4.0-11.0) Red Blood Count 2.56 x10^6/uL (4.30-5.70) Hemoglobin 7.9 g/dL (13.0-17.5) Hematocrit 23.8 % (39.0-53.0) Mean Corpuscular Volume 93 fL (79-100) Mean Corpuscular Hemoglobin 31 pg (25-35) Mean Corpuscular Hemoglobin Concent 33 g/dL (31-37) Red Cell Distribution Width 14.4 % (11.5-14.5) Platelet Count 403 x10^3/uL (140-400) Glucose (Fingerstick) 246 mg/dL (70-99) Test 08/06/17 20:42 08/07/17 05:15 Glucose (Fingerstick) 209 mg/dL (70-99) White Blood Count 7.6 x10^3/uL (4.0-11.0) Red Blood Count 2.47 x10^6/uL (4.30-5.70) Hemoglobin 7.8 g/dL (13.0-17.5) Hematocrit 23.0 % (39.0-53.0) Mean Corpuscular Volume 93 fL (79-100) Mean Corpuscular Hemoglobin 32 pg (25-35) Mean Corpuscular Hemoglobin Concent 34 g/dL (31-37) Red Cell Distribution Width 14.7 % (11.5-14.5) Platelet Count 416 x10^3/uL (140-400) Neutrophils (%) (Auto) 86 % (31-73) Lymphocytes (%) (Auto) 8 % (24-48) Monocytes (%) (Auto) 6 % (0-9) Eosinophils (%) (Auto) 0 % (0-3) Basophils (%) (Auto) 0 % (0-3) Neutrophils # (Auto) 6.5 x10^3uL (1.8-7.7) Lymphocytes # (Auto) 0.6 x10^3/uL (1.0-4.8) Monocytes # (Auto) 0.5 x10^3/uL (0.0-1.1) Eosinophils # (Auto) 0.0 x10^3/uL (0.0-0.7) Basophils # (Auto) 0.0 x10^3/uL (0.0-0.2) Sodium Level 143 mmol/L (136-145) Potassium Level 4.2 mmol/L (3.5-5.1) Chloride Level 104 mmol/L (98-107) Carbon Dioxide Level 33 mmol/L (21-32) Anion Gap 6 (6-14) Blood Urea Nitrogen 128 mg/dL (8-26) Creatinine 2.5 mg/dL (0.7-1.3) Estimated GFR (Cockcroft-Gault) 25.1 BUN/Creatinine Ratio 51 (6-20) Glucose Level 196 mg/dL (70-99) Calcium Level 8.5 mg/dL (8.5-10.1) Total Bilirubin 1.0 mg/dL (0.2-1.0) Aspartate Amino Transf (AST/SGOT) 26 U/L (15-37) Alanine Aminotransferase (ALT/SGPT) 24 U/L (16-63) Alkaline Phosphatase 64 U/L (46-116) Total Protein 6.1 g/dL (6.4-8.2) Albumin 1.9 g/dL (3.4-5.0) Albumin/Globulin Ratio 0.5 (1.0-1.7) Medications Active Scripts Medications Dose Route/Sig Max Daily Dose Days Date Category Dose Instructions Tradjenta (Linagliptin) 5 Mg Tablet 5 Mg PO DAILY 08/06/17 Reported Senna Plus Tablet (Sennosides/Docusate Sodium) 1 Each Tablet 1 Each PO DAILY PRN 08/06/17 Reported Potassium Chloride 10 Meq Capsule.er 20 Meq PO DAILY 08/06/17 Reported Actos (Pioglitazone Hcl) 30 Mg Tablet 1 Tab PO DAILY 08/06/17 Reported [place] 10-325 Tablet (Acetaminophen/Hydrocodone Bitart) 1 Each Tablet 1 Tab PO PRN Q6HRS PRN 08/06/17 Reported Milk Of Magnesia (Magnesium Hydroxide) 400 Mg/5 Ml Oral.susp 30 Ml PO DAILY PRN 08/06/17 Reported Metolazone 2.5 Mg Tablet 2.5 Mg PO DAILY 08/06/17 Reported Humalog (Insulin Lispro) 100 Unit/1 Ml Insuln.pen 100 Units SQ QID 08/06/17 Reported inject as per sliding scale: if 151-200 = 3; 201-250 = 4; 251-200 = 6; 301-350 = 9; 351-400 = 12; 401+ = 12 and call physician; subq four times a day for DM Hydralazine Hcl 10 Mg Tablet 10 Mg PO QID 08/06/17 Reported Furosemide 40 Mg Tablet 40 Mg PO BID 08/06/17 Reported Fluticasone Propionate Nasal [place] (Fluticasone Propionate) 16 Gm [place].susp 2 [place] NS DAILY 08/06/17 Reported [place] Enema (Na Phos,M-B/Na Phos,Di-Ba) 133 Ml Enema 118 Ml RC PRN PRN 08/06/17 Reported Ferrous Sulfate 325 Mg Tablet 325 Mg PO TID 08/06/17 Reported Trilipix (Fenofibric Acid (Choline)) 135 Mg Capsule.dr 135 Mg PO HS 08/06/17 Reported Famotidine 20 Mg Tablet 20 Mg PO BID 08/06/17 Reported Entresto 24 mg-26 mg Tablet (Sacubitril/Valsartan) 1 Each Tablet 1 Each PO DAILY 08/06/17 Reported Duoneb 0.5-3(2.5) Mg/3 Ml (Albuterol/Ipratropium) 3 Ml Ampul.neb 3 Ml NEB QID 08/06/17 Reported Dulcolax (Bisacodyl) 10 Mg Supp.rect 10 Mg RC PRN DAILY PRN 08/06/17 Reported Ear Wax Drops (Carbamide Peroxide) 15 Ml Drops 15 Ml OT 08/06/17 Reported INSTILL 5 DROPS IN BOTH EARS ONE TIME A DAY FOR CERUMEN IMPACTION FOR 4 DAYS. LEAVE IN EAR 5 MINUTES BEFORE TREATING OTHER EAR. Vitamin D (Cholecalciferol (Vitamin D3)) 2,000 Unit Capsule 5,000 Unit PO DAILY 08/06/17 Reported Benzonatate 200 Mg Capsule 200 Mg PO TID 08/06/17 Reported Eliquis (Apixaban) 5 Mg Tablet 5 Mg PO BID 08/06/17 Reported Amiodarone Hcl 200 Mg Tablet 200 Mg PO DAILY 08/06/17 Reported Acetaminophen 500 Mg Tablet 650 Mg PO Q4HRS PRN 08/06/17 Reported Lipitor (Atorvastatin Calcium) 80 Mg Tablet 80 Mg PO HS 04/07/14 Reported Impression . 1. Acute respiratory failure secondary to [id number] diastolic and systolic heart failure. 2. Abnormal x-ray compatible with congestive heart failure. 3. VQ scan revealing no unmatched perfusion defects, poor study, clinical suspicion for pulmonary embolism is low. PROCALCITONIN IS LOW 4. Chronic kidney disease. 5. Paroxysmal atrial fibrillation. 6. Severe protein malnutrition, present upon admission. 7. Hematuria. 8. Hypertension. 9. Clinical presentation compatible with obstructive sleep apnea. 10. Leukocytosis. 11. C- Diff positive Plan . 1. I suspect most of the patient's respiratory distress related to CHF CXR about the same 2. Antibx per ID 3. PRN BIPAP 4. Venous Doppler of the lower extremities. NEGATIVE 5. Follow Cardiology and Nephrology input. TRACEY LOVE MD Aug 07, 2017 08:42
[2017-08-07] MEDS ORDERED: FUROSEMIDE 40 MG TABLET. PO SCH (09:00)
[2017-08-07] MEDS: FUROSEMIDE 40 MG/4 ML VIAL. IVP SCH (09:00)
[2017-08-07] MEDS: POLYETHYLENE GLYCOL 3350 17 GM PACKET. PO SCH (09:00)
--- NOTE | 2017-08-07 09:36 | PDOC ---
SUBJECTIVE ROS AMY/ CKD III Doing and feeling a little better today CVS: no Orthopnea, no CP RESP: no SOB, no MILLS GI: no Nausea, no Vomiting : no Dysuria, no Urgency OBJECTIVE Vital Signs Vital Signs Date Time Temp Pulse Resp B/P (MAP) Pulse Ox O2 Delivery O2 Flow Rate FiO2 08/07/17 08:08 99 Nasal Cannula 3.0 08/07/17 07:00 60 24 101/48 (65) 08/07/17 04:00 97.5 97.5 I & 0 Intake and Output 08/08/17 06:59 Output Total 125 ml Balance -125 ml Output Urine Total 125 ml PHYSICAL EXAM Physical Exam General Appearance: Awake Alert Oriented x 3 In no resp Distress Eyes: VIsion Unchanged Conjunctiva Normal EN: No EN Drainage Mucous Memb. moist Neck: no JVD + JVP Supple no Thyromegaly - thick neck CVS: S1 S2 no Murmur No Gallop No Rub + Edema Resp: no Rales no Rhonchi no Acc. Muscle use; dec AE in bases GI: BS +ve NO Bruit Non Tender Non Distended - obese : no CVA tenderness; no Suprapubic Tenderness Assessment & Plan ARF ? 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 Will re-evaluate for Dialysis in am CKD III - Creat was down to 1.3 at [facility] once (fluid status NA then) - has been 1.8ish in Oct of this year. edema - much better then when I saw him at [facility] - suspect due to hypoAlbuminemia ; will try IV Alb once Resp status is better Sev HypoAlbuminemia - UA noted - Check Ratio for proteinuria ? CHF on CXR - BUN Creat ratio suggest pre-renal state vs ? GI BLeed - diuresis as needed to optimize resp status Anemia: check Iron, May need Epogen Transfuse as needed. HTN: Current BP meds reviewed. See orders for changes. defer to Cardiology to optimize from afib standpoint Hematuria - presumed due to h/o Pr Ca/ sanchez trauma and anticoag - will check US for completion Discussed Plan of Care and prognosis with Pt COMMENT/RELEVANT DATA Meds Current Medications Medications (Trade) Dose Ordered Sig/Meghana Start Time Stop Time Status Last Admin Dose Admin Acetaminophen (Tylenol) 650 mg PRN Q6HRS PRN 08/06/17 11:15 Acetaminophen/ Hydrocodone Bitart (Lortab 10/325) 1 tab PRN Q6HRS PRN 08/06/17 11:15 08/06/17 22:41 1 TAB Acetaminophen/ Hydrocodone Bitart (Lortab 7.5/325) 1 tab PRN Q6HRS PRN 08/06/17 09:45 08/06/17 10:22 1 TAB Albumin Human 100 ml @ 100 mls/hr 1X ONCE 08/06/17 13:00 08/06/17 13:59 DC 08/06/17 15:09 100 MLS/HR Albuterol/ Ipratropium (Duoneb) 3 ml RTQID 08/06/17 12:00 08/07/17 08:06 3 ML Amiodarone HCl (Cordarone) 200 mg DAILY 08/06/17 12:00 08/06/17 15:09 200 MG Apixaban (Eliquis) 2.5 mg BID 08/06/17 21:00 UNV Atorvastatin Calcium (Lipitor) 80 mg QHS 08/06/17 21:00 08/06/17 20:39 80 MG Azithromycin 250 ml @ 250 mls/hr 1X ONCE 08/05/17 17:15 08/05/17 18:14 DC 08/05/17 18:53 250 MLS/HR Azithromycin 500 mg/Sodium Chloride 250 ml @ 250 mls/hr 1X ONCE 08/05/17 17:00 08/05/17 17:59 UNV Benzonatate (Tessalon Perle) 200 mg [id number] 08/06/17 14:00 08/06/17 20:39 200 MG Bisacodyl (Dulcolax Supp) 10 mg PRN DAILY PRN 08/06/17 11:15 Ceftriaxone Sodium 1 gm/ Sodium Chloride 50 ml @ 100 mls/hr 1X ONCE 08/05/17 17:00 08/05/17 17:29 UNV Ceftriaxone Sodium 50 ml @ 100 mls/hr 1X ONCE 08/05/17 17:15 08/05/17 17:44 DC 08/05/17 17:30 100 MLS/HR Dextrose (Dextrose 50%-Water Syringe) 12.5 gm PRN Q15MIN PRN 08/06/17 12:15 Docusate Sodium (Colace) 100 mg PRN DAILY PRN 08/05/17 23:00 Enoxaparin Sodium (Lovenox 120mg Syringe) 120 mg 1X ONCE 08/05/17 18:30 08/05/17 18:31 DC 08/05/17 18:50 120 MG Famotidine (Pepcid) 20 mg BID 08/06/17 12:00 08/06/17 20:39 20 MG Fenofibrate (Lofibra) 134 mg QHS 08/06/17 21:00 08/06/17 20:39 134 MG Fentanyl Citrate (Fentanyl 2ml Vial) 50 mcg PRN Q1HR PRN 08/05/17 18:15 08/06/17 18:14 DC Ferrous Sulfate (Feosol) 325 mg TID 08/06/17 14:00 08/06/17 20:39 325 MG Fluticasone Propionate (Flonase) 2 spray DAILY 08/06/17 12:00 Furosemide (Lasix) 40 mg DAILY 08/07/17 09:00 Hydralazine HCl (Apresoline) 10 mg QID 08/06/17 14:00 08/06/17 14:00 DC Info (Anti-Coagulation Monitoring By Pharmacy) 1 each PRN DAILY PRN 08/07/17 08:00 Insulin Aspart (NovoLOG) 0-9 UNITS QID 08/06/17 17:00 08/06/17 20:44 5 UNITS Linagliptin (Tradjenta) 5 mg DAILY 08/06/17 12:00 08/06/17 15:10 5 MG Linezolid 300 ml @ 300 mls/hr Q12HR 08/06/17 09:00 08/06/17 20:39 300 MLS/HR Lubiprostone (Amitiza) 24 mcg [id number] 08/06/17 12:00 08/06/17 17:54 24 MCG Magnesium Hydroxide (Milk Of Magnesia) 2,400 mg DAILY PRN 08/06/17 11:15 Methylprednisolone Sodium Succinate (SOLU-Medrol 125MG VIAL) 125 mg 1X ONCE 08/05/17 17:00 08/05/17 17:01 DC 08/05/17 17:25 125 MG Metolazone (Zaroxolyn) 2.5 mg DAILY 08/06/17 12:00 08/06/17 15:10 2.5 MG Metronidazole 100 ml @ 100 mls/hr Q8HRS 08/06/17 22:00 08/07/17 07:19 DC 08/07/17 05:40 100 MLS/HR Non-Formulary Medication 100 unit QID 08/06/17 13:00 UNV Ondansetron HCl (Zofran) 4 mg PRN Q8HRS PRN 08/05/17 18:15 08/06/17 18:14 DC Pioglitazone HCl (Actos) 30 mg DAILY 08/06/17 12:00 08/06/17 12:26 DC Piperacillin Sod/ Tazobactam Sod (Zosyn Per Pharmacy) 1 each PRN DAILY PRN 08/05/17 23:00 08/06/17 07:35 DC Piperacillin Sod/ Tazobactam Sod 3.375 gm/Sodium Chloride 50 ml @ 100 mls/hr Q6HRS 08/06/17 00:00 08/07/17 07:19 DC 08/07/17 05:40 100 MLS/HR Polyethylene Glycol (miraLAX PACKET) 17 gm PRN DAILY PRN 08/05/17 23:00 Potassium Chloride (Klor-Con) 10 meq [id number] 08/06/17 12:00 08/06/17 15:10 10 MEQ Sacubitril/ Valsartan (Entresto 24 Mg-26 Mg) 1 tab DAILY 08/06/17 13:00 08/06/17 13:00 DC Senna/Docusate Sodium (Senna Plus) 1 tab DAILY PRN 08/06/17 11:15 Sodium Chloride (Normal Saline Flush) 10 ml QSHIFT PRN 08/05/17 18:15 Sodium Chloride (Saline Mist Nasal) 1 joseph PRN Q1HR PRN 08/06/17 16:30 Vancomycin HCl 125 mg [id number] 08/07/17 09:00 Vancomycin HCl (Vanco Per Pharmacy) 1 each PRN DAILY PRN 08/05/17 23:00 08/06/17 08:02 DC 08/06/17 01:23 1 EACH Vancomycin HCl 2 gm/Sodium Chloride 500 ml @ 250 mls/hr Q24H 08/06/17 23:00 08/06/17 23:00 DC Vitamin D (Vitamin D3) 5,000 unit DAILY 08/07/17 09:00 Lab Laboratory Tests Test 08/06/17 10:10 08/06/17 12:28 08/06/17 13:15 08/06/17 17:36 Clostridium difficile Toxin (PCR) Positive (Negative) O2 Saturation 98 % (92-99) Arterial Blood pH 7.50 (7.35-7.45) Arterial Blood pCO2 at Patient Temp 38 mmHg (35-46) Arterial Blood pO2 at Patient Temp 126 mmHg (65-108) Arterial Blood HCO3 29 mmol/L (21-28) Arterial Blood Base Excess 6 mmol/L (-3-3) FiO2 40 White Blood Count 7.6 x10^3/uL (4.0-11.0) Red Blood Count 2.56 x10^6/uL (4.30-5.70) Hemoglobin 7.9 g/dL (13.0-17.5) Hematocrit 23.8 % (39.0-53.0) Mean Corpuscular Volume 93 fL (79-100) Mean Corpuscular Hemoglobin 31 pg (25-35) Mean Corpuscular Hemoglobin Concent 33 g/dL (31-37) Red Cell Distribution Width 14.4 % (11.5-14.5) Platelet Count 403 x10^3/uL (140-400) Glucose (Fingerstick) 246 mg/dL (70-99) Test 08/06/17 20:42 08/07/17 05:15 Glucose (Fingerstick) 209 mg/dL (70-99) White Blood Count 7.6 x10^3/uL (4.0-11.0) Red Blood Count 2.47 x10^6/uL (4.30-5.70) Hemoglobin 7.8 g/dL (13.0-17.5) Hematocrit 23.0 % (39.0-53.0) Mean Corpuscular Volume 93 fL (79-100) Mean Corpuscular Hemoglobin 32 pg (25-35) Mean Corpuscular Hemoglobin Concent 34 g/dL (31-37) Red Cell Distribution Width 14.7 % (11.5-14.5) Platelet Count 416 x10^3/uL (140-400) Neutrophils (%) (Auto) 86 % (31-73) Lymphocytes (%) (Auto) 8 % (24-48) Monocytes (%) (Auto) 6 % (0-9) Eosinophils (%) (Auto) 0 % (0-3) Basophils (%) (Auto) 0 % (0-3) Neutrophils # (Auto) 6.5 x10^3uL (1.8-7.7) Lymphocytes # (Auto) 0.6 x10^3/uL (1.0-4.8) Monocytes # (Auto) 0.5 x10^3/uL (0.0-1.1) Eosinophils # (Auto) 0.0 x10^3/uL (0.0-0.7) Basophils # (Auto) 0.0 x10^3/uL (0.0-0.2) Sodium Level 143 mmol/L (136-145) Potassium Level 4.2 mmol/L (3.5-5.1) Chloride Level 104 mmol/L (98-107) Carbon Dioxide Level 33 mmol/L (21-32) Anion Gap 6 (6-14) Blood Urea Nitrogen 128 mg/dL (8-26) Creatinine 2.5 mg/dL (0.7-1.3) Estimated GFR (Cockcroft-Gault) 25.1 BUN/Creatinine Ratio 51 (6-20) Glucose Level 196 mg/dL (70-99) Calcium Level 8.5 mg/dL (8.5-10.1) Total Bilirubin 1.0 mg/dL (0.2-1.0) Aspartate Amino Transf (AST/SGOT) 26 U/L (15-37) Alanine Aminotransferase (ALT/SGPT) 24 U/L (16-63) Alkaline Phosphatase 64 U/L (46-116) Total Protein 6.1 g/dL (6.4-8.2) Albumin 1.9 g/dL (3.4-5.0) Albumin/Globulin Ratio 0.5 (1.0-1.7) KARISSA MCKNIGHT MD Aug 07, 2017 09:36
--- NOTE | 2017-08-07 09:42 | PDOC ---
PROGRESS NOTES Subjective Subjective He feels better. Objective Objective Vital Signs Date Time Temp Pulse Resp B/P (MAP) Pulse Ox O2 Delivery O2 Flow Rate FiO2 08/07/17 08:08 99 Nasal Cannula 3.0 08/07/17 07:00 60 24 101/48 (65) 08/07/17 04:00 97.5 97.5 Intake and Output 08/08/17 06:59 Output Total 125 ml Balance -125 ml Output Urine Total 125 ml Physical Exam Physical Exam He is alert and eating breakfast being fed by nursing and he continues with generalized muscle weakness,more so of his upper extremities. Assessment Assessment Problems Medical Problems: (1) Anemia Status: Acute (2) Dyspnea Status: Acute (3) Fever Status: Acute (4) Hyperkalemia Status: Acute (5) Leukocytosis Status: Acute (6) Renal insufficiency Status: Acute Plan Plan of Care To resume physical and occupational therapy follow up and to see he may qualify for LTAC unit for continued care. Comment Review of Relevant I have reviewed the following items marlon (where applicable) has been applied. Labs Laboratory Tests Test 08/05/17 17:05 08/05/17 17:10 08/05/17 18:10 08/05/17 19:30 White Blood Count 12.6 x10^3/uL (4.0-11.0) Red Blood Count 2.68 x10^6/uL (4.30-5.70) Hemoglobin 8.4 g/dL (13.0-17.5) Hematocrit 25.1 % (39.0-53.0) Mean Corpuscular Volume 94 fL (79-100) Mean Corpuscular Hemoglobin 31 pg (25-35) Mean Corpuscular Hemoglobin Concent 33 g/dL (31-37) Red Cell Distribution Width 15.0 % (11.5-14.5) Platelet Count 405 x10^3/uL (140-400) Neutrophils (%) (Auto) 86 % (31-73) Lymphocytes (%) (Auto) 6 % (24-48) Monocytes (%) (Auto) 7 % (0-9) Eosinophils (%) (Auto) 1 % (0-3) Basophils (%) (Auto) 1 % (0-3) Neutrophils # (Auto) 10.9 x10^3uL (1.8-7.7) Lymphocytes # (Auto) 0.8 x10^3/uL (1.0-4.8) Monocytes # (Auto) 0.8 x10^3/uL (0.0-1.1) Eosinophils # (Auto) 0.1 x10^3/uL (0.0-0.7) Basophils # (Auto) 0.1 x10^3/uL (0.0-0.2) Segmented Neutrophils % 86 % (35-66) Band Neutrophils % 3 % (0-9) Lymphocytes % 4 % (24-48) Monocytes % 5 % (0-10) Eosinophils % 1 % (0-5) Myelocytes % 1 % (0-0) Toxic Granulation Slight Platelet Estimate Adequate (ADEQUATE) Hypochromasia Slight Anisocytosis Slight Sodium Level 138 mmol/L (136-145) Potassium Level 5.8 mmol/L (3.5-5.1) Chloride Level 101 mmol/L (98-107) Carbon Dioxide Level 34 mmol/L (21-32) Anion Gap 3 (6-14) Blood Urea Nitrogen 120 mg/dL (8-26) Creatinine 2.6 mg/dL (0.7-1.3) Estimated GFR (Cockcroft-Gault) 24.0 Glucose Level 259 mg/dL (70-99) Lactic Acid Level 1.8 mmol/L (0.4-2.0) Calcium Level 8.4 mg/dL (8.5-10.1) Magnesium Level 2.8 mg/dL (1.8-2.4) Total Bilirubin 1.1 mg/dL (0.2-1.0) Direct Bilirubin 0.4 mg/dL (0.0-0.2) Aspartate Amino Transf (AST/SGOT) 45 U/L (15-37) Alanine Aminotransferase (ALT/SGPT) 26 U/L (16-63) Alkaline Phosphatase 76 U/L (46-116) Creatine Kinase 122 U/L (39-308) Creatine Kinase MB (Mass) < 0.5 ng/mL (0.0-3.6) Creatine Kinase MB Relative Index 0.4 % (0-4) Troponin I Quantitative 0.038 ng/mL (0.000-0.055) DR-Aio-G-Type Natriuretic Peptide 5157 pg/mL (0-449) Total Protein 6.5 g/dL (6.4-8.2) Albumin 1.6 g/dL (3.4-5.0) Lipase 160 U/L (73-393) Thyroid Stimulating Hormone (TSH) 3.670 uIU/mL (0.358-3.74) Urine Collection Type U cath Urine Color [place]an Urine Clarity Turbid Urine pH 5.0 Urine Specific [place] 1.020 Urine Protein 100 mg/dL (NEG-TRACE) Urine Glucose (UA) Negative mg/dL (NEG) Urine Ketones (Stick) Negative mg/dL (NEG) Urine Blood Large (NEG) Urine Nitrite Negative (NEG) Urine Bilirubin Small (NEG) Urine Urobilinogen Dipstick 1.0 mg/dL (0.2 mg/dL) Urine Leukocyte Esterase Small (NEG) Urine RBC >40 /HPF (0-2) Urine WBC Occ /HPF (0-4) Urine Amorphous Sediment Present /HPF Urine Bacteria Few /HPF (0-FEW) Urine Hyaline Casts Moderate /HPF Influenza Type A Antigen Negative (NEGATIVE) Influenza Type B Antigen Negative (NEGATIVE) Nasal Screen MRSA (PCR) Positive (Negative) Test 08/05/17 20:00 08/06/17 00:25 08/06/17 06:00 08/06/17 10:10 Lactic Acid Level 1.0 mmol/L (0.4-2.0) Troponin I Quantitative 0.036 ng/mL (0.000-0.055) 0.032 ng/mL (0.000-0.055) White Blood Count 7.4 x10^3/uL (4.0-11.0) Red Blood Count 2.37 x10^6/uL (4.30-5.70) Hemoglobin 7.3 g/dL (13.0-17.5) Hematocrit 22.3 % (39.0-53.0) Mean Corpuscular Volume 94 fL (79-100) Mean Corpuscular Hemoglobin 31 pg (25-35) Mean Corpuscular Hemoglobin Concent 33 g/dL (31-37) Red Cell Distribution Width 14.7 % (11.5-14.5) Platelet Count 330 x10^3/uL (140-400) Neutrophils (%) (Auto) 93 % (31-73) Lymphocytes (%) (Auto) 6 % (24-48) Monocytes (%) (Auto) 1 % (0-9) Eosinophils (%) (Auto) 0 % (0-3) Basophils (%) (Auto) 0 % (0-3) Neutrophils # (Auto) 6.9 x10^3uL (1.8-7.7) Lymphocytes # (Auto) 0.4 x10^3/uL (1.0-4.8) Monocytes # (Auto) 0.1 x10^3/uL (0.0-1.1) Eosinophils # (Auto) 0.0 x10^3/uL (0.0-0.7) Basophils # (Auto) 0.0 x10^3/uL (0.0-0.2) Sodium Level 142 mmol/L (136-145) Potassium Level 5.1 mmol/L (3.5-5.1) Chloride Level 104 mmol/L (98-107) Carbon Dioxide Level 32 mmol/L (21-32) Anion Gap 6 (6-14) Blood Urea Nitrogen 125 mg/dL (8-26) Creatinine 2.4 mg/dL (0.7-1.3) Estimated GFR (Cockcroft-Gault) 26.3 BUN/Creatinine Ratio 52 (6-20) Glucose Level 250 mg/dL (70-99) Calcium Level 7.8 mg/dL (8.5-10.1) Total Bilirubin 0.8 mg/dL (0.2-1.0) Aspartate Amino Transf (AST/SGOT) 30 U/L (15-37) Alanine Aminotransferase (ALT/SGPT) 22 U/L (16-63) Alkaline Phosphatase 68 U/L (46-116) Total Protein 5.4 g/dL (6.4-8.2) Albumin 1.5 g/dL (3.4-5.0) Albumin/Globulin Ratio 0.4 (1.0-1.7) Procalcitonin 0.48 ng/mL (0.00-0.10) Clostridium difficile Toxin (PCR) Positive (Negative) Test 08/06/17 12:28 08/06/17 13:15 08/06/17 17:36 08/06/17 20:42 O2 Saturation 98 % (92-99) Arterial Blood pH 7.50 (7.35-7.45) Arterial Blood pCO2 at Patient Temp 38 mmHg (35-46) Arterial Blood pO2 at Patient Temp 126 mmHg (65-108) Arterial Blood HCO3 29 mmol/L (21-28) Arterial Blood Base Excess 6 mmol/L (-3-3) FiO2 40 White Blood Count 7.6 x10^3/uL (4.0-11.0) Red Blood Count 2.56 x10^6/uL (4.30-5.70) Hemoglobin 7.9 g/dL (13.0-17.5) Hematocrit 23.8 % (39.0-53.0) Mean Corpuscular Volume 93 fL (79-100) Mean Corpuscular Hemoglobin 31 pg (25-35) Mean Corpuscular Hemoglobin Concent 33 g/dL (31-37) Red Cell Distribution Width 14.4 % (11.5-14.5) Platelet Count 403 x10^3/uL (140-400) Glucose (Fingerstick) 246 mg/dL (70-99) 209 mg/dL (70-99) Test 08/07/17 05:15 White Blood Count 7.6 x10^3/uL (4.0-11.0) Red Blood Count 2.47 x10^6/uL (4.30-5.70) Hemoglobin 7.8 g/dL (13.0-17.5) Hematocrit 23.0 % (39.0-53.0) Mean Corpuscular Volume 93 fL (79-100) Mean Corpuscular Hemoglobin 32 pg (25-35) Mean Corpuscular Hemoglobin Concent 34 g/dL (31-37) Red Cell Distribution Width 14.7 % (11.5-14.5) Platelet Count 416 x10^3/uL (140-400) Neutrophils (%) (Auto) 86 % (31-73) Lymphocytes (%) (Auto) 8 % (24-48) Monocytes (%) (Auto) 6 % (0-9) Eosinophils (%) (Auto) 0 % (0-3) Basophils (%) (Auto) 0 % (0-3) Neutrophils # (Auto) 6.5 x10^3uL (1.8-7.7) Lymphocytes # (Auto) 0.6 x10^3/uL (1.0-4.8) Monocytes # (Auto) 0.5 x10^3/uL (0.0-1.1) Eosinophils # (Auto) 0.0 x10^3/uL (0.0-0.7) Basophils # (Auto) 0.0 x10^3/uL (0.0-0.2) Sodium Level 143 mmol/L (136-145) Potassium Level 4.2 mmol/L (3.5-5.1) Chloride Level 104 mmol/L (98-107) Carbon Dioxide Level 33 mmol/L (21-32) Anion Gap 6 (6-14) Blood Urea Nitrogen 128 mg/dL (8-26) Creatinine 2.5 mg/dL (0.7-1.3) Estimated GFR (Cockcroft-Gault) 25.1 BUN/Creatinine Ratio 51 (6-20) Glucose Level 196 mg/dL (70-99) Calcium Level 8.5 mg/dL (8.5-10.1) Total Bilirubin 1.0 mg/dL (0.2-1.0) Aspartate Amino Transf (AST/SGOT) 26 U/L (15-37) Alanine Aminotransferase (ALT/SGPT) 24 U/L (16-63) Alkaline Phosphatase 64 U/L (46-116) Total Protein 6.1 g/dL (6.4-8.2) Albumin 1.9 g/dL (3.4-5.0) Albumin/Globulin Ratio 0.5 (1.0-1.7) Laboratory Tests Test 08/06/17 10:10 08/06/17 12:28 08/06/17 13:15 08/06/17 17:36 Clostridium difficile Toxin (PCR) Positive (Negative) O2 Saturation 98 % (92-99) Arterial Blood pH 7.50 (7.35-7.45) Arterial Blood pCO2 at Patient Temp 38 mmHg (35-46) Arterial Blood pO2 at Patient Temp 126 mmHg (65-108) Arterial Blood HCO3 29 mmol/L (21-28) Arterial Blood Base Excess 6 mmol/L (-3-3) FiO2 40 White Blood Count 7.6 x10^3/uL (4.0-11.0) Red Blood Count 2.56 x10^6/uL (4.30-5.70) Hemoglobin 7.9 g/dL (13.0-17.5) Hematocrit 23.8 % (39.0-53.0) Mean Corpuscular Volume 93 fL (79-100) Mean Corpuscular Hemoglobin 31 pg (25-35) Mean Corpuscular Hemoglobin Concent 33 g/dL (31-37) Red Cell Distribution Width 14.4 % (11.5-14.5) Platelet Count 403 x10^3/uL (140-400) Glucose (Fingerstick) 246 mg/dL (70-99) Test 08/06/17 20:42 08/07/17 05:15 Glucose (Fingerstick) 209 mg/dL (70-99) White Blood Count 7.6 x10^3/uL (4.0-11.0) Red Blood Count 2.47 x10^6/uL (4.30-5.70) Hemoglobin 7.8 g/dL (13.0-17.5) Hematocrit 23.0 % (39.0-53.0) Mean Corpuscular Volume 93 fL (79-100) Mean Corpuscular Hemoglobin 32 pg (25-35) Mean Corpuscular Hemoglobin Concent 34 g/dL (31-37) Red Cell Distribution Width 14.7 % (11.5-14.5) Platelet Count 416 x10^3/uL (140-400) Neutrophils (%) (Auto) 86 % (31-73) Lymphocytes (%) (Auto) 8 % (24-48) Monocytes (%) (Auto) 6 % (0-9) Eosinophils (%) (Auto) 0 % (0-3) Basophils (%) (Auto) 0 % (0-3) Neutrophils # (Auto) 6.5 x10^3uL (1.8-7.7) Lymphocytes # (Auto) 0.6 x10^3/uL (1.0-4.8) Monocytes # (Auto) 0.5 x10^3/uL (0.0-1.1) Eosinophils # (Auto) 0.0 x10^3/uL (0.0-0.7) Basophils # (Auto) 0.0 x10^3/uL (0.0-0.2) Sodium Level 143 mmol/L (136-145) Potassium Level 4.2 mmol/L (3.5-5.1) Chloride Level 104 mmol/L (98-107) Carbon Dioxide Level 33 mmol/L (21-32) Anion Gap 6 (6-14) Blood Urea Nitrogen 128 mg/dL (8-26) Creatinine 2.5 mg/dL (0.7-1.3) Estimated GFR (Cockcroft-Gault) 25.1 BUN/Creatinine Ratio 51 (6-20) Glucose Level 196 mg/dL (70-99) Calcium Level 8.5 mg/dL (8.5-10.1) Total Bilirubin 1.0 mg/dL (0.2-1.0) Aspartate Amino Transf (AST/SGOT) 26 U/L (15-37) Alanine Aminotransferase (ALT/SGPT) 24 U/L (16-63) Alkaline Phosphatase 64 U/L (46-116) Total Protein 6.1 g/dL (6.4-8.2) Albumin 1.9 g/dL (3.4-5.0) Albumin/Globulin Ratio 0.5 (1.0-1.7) Microbiology 08/05/17 Blood Culture - Preliminary, Resulted 08/05/17 Blood Culture Result 1 (FABIO) - Preliminary, Resulted 08/05/17 Urine Culture - Preliminary, Resulted 08/05/17 Urine Culture Result 1 (FABIO) - Preliminary, Resulted Medications Current Medications Sodium Chloride (Normal Saline Flush) 10 ml 1X ONCE IV Last administered on 08:01; Start 08/05/17 at 17:00; Stop 08/05/17 at 17:01; Status DC Sodium Chloride 1,000 ml @ 1,000 mls/hr Q1H IV Last administered on 17:22; Start 08/05/17 at 16:55; Stop 08/05/17 at 17:54; Status DC Albuterol/ Ipratropium (Duoneb) 3 ml 1X ONCE NEB Last administered on 17:17; Start 08/05/17 at 17:00; Stop 08/05/17 at 17:01; Status DC Methylprednisolone Sodium Succinate (SOLU-Medrol 125MG VIAL) 125 mg 1X ONCE IV Last administered on 08/05/17 17:25; Start 08/05/17 at 17:00; Stop at 17:01; Status DC Acetaminophen (Tylenol) 650 mg 1X ONCE PO Last administered on 08/05/17 17: 27; Start 08/05/17 at 17:00; Stop 08/05/17 at 17:01; Status DC Ceftriaxone Sodium 1 gm/ Sodium Chloride 50 ml @ 100 mls/hr 1X ONCE IV ; Start 08/05/17 at 17:00; Stop 08/05/17 at 17:29; Status UNV Azithromycin 500 mg/Sodium Chloride 250 ml @ 250 mls/hr 1X ONCE IV ; Start at 17:00; Stop 08/05/17 at 17:59; Status UNV Azithromycin 250 ml @ 250 mls/hr 1X ONCE IV Last administered on 08/05/17 18:53; Start 08/05/17 at 17:15; Stop 08/05/17 at 18:14; Status DC Ceftriaxone Sodium 50 ml @ 100 mls/hr 1X ONCE IV Last administered on 17:30; Start 08/05/17 at 17:15; Stop 08/05/17 at 17:44; Status DC Ondansetron HCl (Zofran) 4 mg PRN Q8HRS PRN IV NAUSEA/VOMITING; Start at 18:15; Stop 08/06/17 at 18:14; Status DC Fentanyl Citrate (Fentanyl 2ml Vial) 50 mcg PRN Q1HR PRN IV PAIN; Start at 18:15; Stop 08/06/17 at 18:14; Status DC Acetaminophen (Tylenol) 650 mg PRN Q4HRS PRN PO FEVER; Start 08/05/17 at 18:15 ; Stop 08/06/17 at 13:01; Status DC Furosemide (Lasix) 40 mg 1X ONCE IVP Last administered on 08/05/17 18:50; Start 08/05/17 at 18:15; Stop 08/05/17 at 18:16; Status DC Sodium Chloride 1,000 ml @ 1,000 mls/hr Q1H IV Last administered on 21:10; Start 08/05/17 at 18:06; Stop 08/05/17 at 19:05; Status DC Sodium Chloride (Normal Saline Flush) 10 ml QSHIFT PRN IV AFTER MEDS AND BLOOD DRAWS; Start 08/05/17 at 18:15 Enoxaparin Sodium (Lovenox 120mg Syringe) 120 mg 1X ONCE SQ Last administered on 08/05/17 18:50; Start 08/05/17 at 18:30; Stop 08/05/17 at 18:31; Status DC Docusate Sodium (Colace) 100 mg DAILY PO ; Start 08/06/17 at 09:00 Docusate Sodium (Colace) 100 mg PRN DAILY PRN PO CONSTIPATION; Start 08/05/17 at 23:00 Polyethylene Glycol (miraLAX PACKET) 17 gm DAILY PO ; Start 08/06/17 at 09:00 Polyethylene Glycol (miraLAX PACKET) 17 gm PRN DAILY PRN PO CONSTIPATION; Start 08/05/17 at 23:00 Piperacillin Sod/ Tazobactam Sod (Zosyn Per Pharmacy) 1 each PRN DAILY PRN MC SEE COMMENTS; Start 08/05/17 at 23:00; Stop 08/06/17 at 07:35; Status DC Vancomycin HCl (Vanco Per Pharmacy) 1 each PRN DAILY PRN MC SEE COMMENTS Last administered on 08/06/17 01:23; Start 08/05/17 at 23:00; Stop 08/06/17 at 08 :02; Status DC Vancomycin HCl 2 gm/Sodium Chloride 500 ml @ 250 mls/hr 1X ONCE IV Last administered on 08/05/17 23:26; Start 08/05/17 at 23:30; Stop 08/06/17 at 01 :29; Status DC Piperacillin Sod/ Tazobactam Sod 3.375 gm/Sodium Chloride 50 ml @ 100 mls/hr Q6HRS IV Last administered on 08/07/17 05:40; Start 08/06/17 at 00:00; Stop 08/07/17 at 07:19; Status DC Vancomycin HCl 2 gm/Sodium Chloride 500 ml @ 250 mls/hr Q24H IV ; Start at 23:00; Stop 08/06/17 at 23:00; Status DC Vancomycin HCl 1 each 1X ONCE MC ; Start 08/07/17 at 22:30; Stop 08/07/17 at 22:30; Status DC Furosemide (Lasix) 40 mg 1X ONCE IVP Last administered on 08/06/17 07:56; Start 08/06/17 at 08:00; Stop 08/06/17 at 08:01; Status DC Linezolid 300 ml @ 300 mls/hr Q12HR IV Last administered on 08/06/17 20:39; Start 08/06/17 at 09:00 Acetaminophen/ Hydrocodone Bitart (Lortab 7.5/325) 1 tab PRN Q6HRS PRN PO PAIN Last administered on 08/06/17 10:22; Start 08/06/17 at 09:45 Acetaminophen (Tylenol) 650 mg PRN Q6HRS PRN PO MILD PAIN; Start 08/06/17 at 11:15 Amiodarone HCl (Cordarone) 200 mg DAILY PO Last administered on 08/06/17 15: 09; Start 08/06/17 at 12:00 Apixaban (Eliquis) 5 mg BID PO Last administered on 08/06/17 20:39; Start at 12:00 Bisacodyl (Dulcolax Supp) 10 mg PRN DAILY PRN RC CONSTIPATION; Start 08/06/17 at 11:15 Famotidine (Pepcid) 20 mg BID PO Last administered on 08/06/17 20:39; Start 08/06/17 at 12:00 Ferrous Sulfate (Feosol) 325 mg TID PO Last administered on 08/06/17 20:39; Start 08/06/17 at 14:00 Fluticasone Propionate (Flonase) 2 spray DAILY NS ; Start 08/06/17 at 12:00 Furosemide (Lasix) 40 mg [id number] PO ; Start 08/06/17 at 14:00; Stop 08/06/17 at 14:00; Status DC Furosemide (Lasix) 40 mg DAILY PO ; Start 08/07/17 at 09:00; Status UNV Hydralazine HCl (Apresoline) 10 mg QID PO ; Start 08/06/17 at 14:00; Stop at 14:00; Status DC Acetaminophen/ Hydrocodone Bitart (Lortab 10/325) 1 tab PRN Q6HRS PRN PO PAIN Last administered on 08/06/17 22:41; Start 08/06/17 at 11:15 Albuterol/ Ipratropium (Duoneb) 3 ml RTQID NEB Last administered on 08/07/17 08:06; Start 08/06/17 at 12:00 Linagliptin (Tradjenta) 5 mg DAILY PO Last administered on 08/06/17 15:10; Start 08/06/17 at 12:00 Magnesium Hydroxide (Milk Of Magnesia) 2,400 mg DAILY PRN PO CONSTIPATION; Start 08/06/17 at 11:15 Metolazone (Zaroxolyn) 2.5 mg DAILY PO Last administered on 08/06/17 15:10; Start 08/06/17 at 12:00 Sacubitril/ Valsartan (Entresto 24 Mg-26 Mg) 1 tab DAILY PO ; Start 08/06/17 at 13:00; Stop 08/06/17 at 13:00; Status DC Senna/Docusate Sodium (Senna Plus) 1 tab DAILY PRN PO CONSTIPATION; Start at 11:15 Atorvastatin Calcium (Lipitor) 80 mg QHS PO Last administered on 08/06/17 20: 39; Start 08/06/17 at 21:00 Benzonatate (Tessalon Perle) 200 mg [id number] PO Last administered on 08/06/17 20:39; Start 08/06/17 at 14:00 Vitamin D (Vitamin D3) 5,000 unit DAILY PO ; Start 08/07/17 at 09:00 Fenofibrate (Lofibra) 134 mg QHS PO Last administered on 08/06/17 20:39; Start 08/06/17 at 21:00 Non-Formulary Medication 100 unit QID SQ ; Start 08/06/17 at 13:00; Status UNV Lubiprostone (Amitiza) 24 mcg BIDWMEALS PO Last administered on 08/06/17 17: 54; Start 08/06/17 at 12:00 Pioglitazone HCl (Actos) 30 mg DAILY PO ; Start 08/06/17 at 12:00; Stop at 12:26; Status DC Potassium Chloride (Klor-Con) 10 meq [id number] PO Last administered on 15:10; Start 08/06/17 at 12:00 Insulin Aspart (NovoLOG) 0-9 UNITS QID SQ Last administered on 08/06/17 20:44 ; Start 08/06/17 at 17:00 Dextrose (Dextrose 50%-Water Syringe) 12.5 gm PRN Q15MIN PRN IV SEE COMMENTS; Start 08/06/17 at 12:15 Apixaban (Eliquis) 2.5 mg BID PO ; Start 08/06/17 at 21:00; Status UNV Albumin Human 100 ml @ 100 mls/hr 1X ONCE IV Last administered on 08/06/17t 15:09; Start 08/06/17 at 13:00; Stop 08/06/17 at 13:59; Status DC Furosemide (Lasix) 40 mg 1X ONCE IVP Last administered on 08/06/17t 16:18; Start 08/06/17 at 14:00; Stop 08/06/17 at 14:01; Status DC Furosemide (Lasix) 40 mg DAILY IVP ; Start 08/07/17 at 09:00 Sodium Chloride (Saline Mist Nasal) 1 joseph PRN Q1HR PRN NS NASAL CONGESTION; Start 08/06/17 at 16:30 Metronidazole 100 ml @ 100 mls/hr Q8HRS IV Last administered on 08/07/17t 05: 40; Start 08/06/17 at 22:00; Stop 08/07/17 at 07:19; Status DC Vancomycin HCl 125 mg [id number] PO ; Start 08/07/17 at 09:00 Info (Anti-Coagulation Monitoring By Pharmacy) 1 each PRN DAILY PRN MC SEE COMMENTS; Start 08/07/17 at 08:00 Active Scripts Active Reported Tradjenta (Linagliptin) 5 Mg Tablet 5 Mg PO DAILY Senna Plus Tablet (Sennosides/Docusate Sodium) 1 Each Tablet 1 Each PO DAILY PRN Potassium Chloride 10 Meq Capsule.er 20 Meq PO DAILY Actos (Pioglitazone Hcl) 30 Mg Tablet 1 Tab PO DAILY Roy 10-325 Tablet (Acetaminophen/Hydrocodone Bitart) 1 Each Tablet 1 Tab PO PRN Q6HRS PRN Milk Of Magnesia (Magnesium Hydroxide) 400 Mg/5 Ml Oral.susp 30 Ml PO DAILY PRN Metolazone 2.5 Mg Tablet 2.5 Mg PO DAILY Humalog (Insulin Lispro) 100 Unit/1 Ml Insuln.pen 100 Units SQ QID inject as per sliding scale: if 151-200 = 3; 201-250 = 4; 251-200 = 6; 301-350 = 9; 351-400 = 12; 401+ = 12 and call physician; subq four times a day for DM Hydralazine Hcl 10 Mg Tablet 10 Mg PO QID Furosemide 40 Mg Tablet 40 Mg PO BID Fluticasone Propionate Nasal [place] (Fluticasone Propionate) 16 Gm [place].susp 2 [place] NS DAILY Fleet Enema (Na Phos,M-B/Na Phos,Di-Ba) 133 Ml Enema 118 Ml RC PRN PRN Ferrous Sulfate 325 Mg Tablet 325 Mg PO TID Trilipix (Fenofibric Acid (Choline)) 135 Mg Capsule.dr 135 Mg PO HS Famotidine 20 Mg Tablet 20 Mg PO BID Entresto 24 mg-26 mg Tablet (Sacubitril/Valsartan) 1 Each Tablet 1 Each PO DAILY Duoneb 0.5-3(2.5) Mg/3 Ml (Albuterol/Ipratropium) 3 Ml Ampul.neb 3 Ml NEB QID Dulcolax (Bisacodyl) 10 Mg Supp.rect 10 Mg RC PRN DAILY PRN Ear Wax Drops (Carbamide Peroxide) 15 Ml Drops 15 Ml OT INSTILL 5 DROPS IN BOTH EARS ONE TIME A DAY FOR CERUMEN IMPACTION FOR 4 DAYS. LEAVE IN EAR 5 MINUTES BEFORE TREATING OTHER EAR. Vitamin D (Cholecalciferol (Vitamin D3)) 2,000 Unit Capsule 5,000 Unit PO DAILY Benzonatate 200 Mg Capsule 200 Mg PO TID Eliquis (Apixaban) 5 Mg Tablet 5 Mg PO BID Amiodarone Hcl 200 Mg Tablet 200 Mg PO DAILY Acetaminophen 500 Mg Tablet 650 Mg PO Q4HRS PRN Lipitor (Atorvastatin Calcium) 80 Mg Tablet 80 Mg PO HS Vitals/I & O Vital Sign - Last 24 Hours 08/06/17 08/06/17 08/06/17 08/06/17 10:00 10:22 11:00 11:29 Pulse 72 70 Resp 30 36 32 26 B/P (MAP) 122/68 (86) 145/69 (94) Pulse Ox 95 94 94 95 O2 Delivery Nasal Cannula Nasal Cannula Nasal Cannula Nasal Cannula O2 Flow Rate 5.0 5.0 5.0 5.0 08/06/17 08/06/17 08/06/17 08/06/17 12:00 12:00 13:00 13:19 Temp 97.9 97.9 Pulse 70 70 Resp 30 26 B/P (MAP) 154/54 (87) 152/71 (98) Pulse Ox 94 95 99 O2 Delivery Nasal Cannula Nasal Cannula Nasal Cannula Nasal Cannula O2 Flow Rate 5.0 5.0 5.0 5.0 08/06/17 08/06/17 08/06/17 08/06/17 14:00 15:00 15:09 15:57 Pulse 74 69 67 Resp 30 30 B/P (MAP) 137/45 (75) 138/54 (82) 138/54 Pulse Ox 94 93 O2 Delivery Nasal Cannula Nasal Cannula Nasal Cannula O2 Flow Rate 5.0 5.0 3.0 08/06/17 08/06/17 08/06/17 08/06/17 16:00 16:00 16:26 17:00 Temp 98.0 98.0 Pulse 77 72 Resp 30 30 30 B/P (MAP) 110/54 (72) 117/46 (69) Pulse Ox 90 90 91 O2 Delivery Nasal Cannula Nasal Cannula Nasal Cannula Nasal Cannula O2 Flow Rate 3.0 3.0 3.0 5.0 08/06/17 08/06/17 08/06/17 08/06/17 17:38 18:00 19:00 19:12 Pulse 78 87 Resp 30 26 31 B/P (MAP) 107/49 (68) 110/70 (83) Pulse Ox 93 92 93 93 O2 Delivery Nasal Cannula Nasal Cannula Nasal Cannula Nasal Cannula O2 Flow Rate 5.0 5.0 5.0 5.0 08/06/17 08/06/17 08/06/17 08/06/17 20:00 20:00 21:00 22:00 Temp 97.3 97.3 Pulse 72 80 71 Resp 31 32 37 B/P (MAP) 104/41 (62) 114/68 (83) 94/43 (60) Pulse Ox 92 97 96 O2 Delivery Nasal Cannula Nasal Cannula Nasal Cannula Nasal Cannula O2 Flow Rate 5.0 5.0 5.0 5.0 08/06/17 08/06/17 08/07/17 08/07/17 23:00 23:59 00:00 01:00 Temp 96.9 96.9 Pulse 75 64 62 Resp 39 31 30 B/P (MAP) 105/39 (61) 90/38 (55) 90/39 (56) Pulse Ox 95 98 97 O2 Delivery Nasal Cannula Nasal Cannula Nasal Cannula Nasal Cannula O2 Flow Rate 5.0 5.0 5.0 5.0 08/07/17 08/07/17 08/07/17 08/07/17 02:00 03:00 04:00 04:00 Temp 97.5 97.5 Pulse 62 70 57 Resp 25 31 23 B/P (MAP) 83/43 (56) 108/48 (68) 88/42 (57) Pulse Ox 97 95 97 O2 Delivery Nasal Cannula Nasal Cannula Nasal Cannula Nasal Cannula O2 Flow Rate 5.0 5.0 5.0 5.0 08/07/17 08/07/17 08/07/17 08/07/17 05:00 06:00 07:00 08:08 Pulse 57 64 60 Resp 25 22 24 B/P (MAP) 94/45 (61) 92/51 (65) 101/48 (65) Pulse Ox 96 97 98 99 O2 Delivery Nasal Cannula Nasal Cannula Nasal Cannula Nasal Cannula O2 Flow Rate 5.0 5.0 5.0 3.0 Intake and Output 08/07/17 08/07/17 08/08/17 14:59 22:59 06:59 Output Total 125 ml Balance -125 ml BENNY YANG MD Aug 07, 2017 09:42
[2017-08-07] MEDS: metOLazone 2.5 MG TABLET PO SCH (11:02)
[2017-08-07] MEDS: AMIODARONE HCL 200 MG TABLET. PO SCH (11:02)
[2017-08-07] MEDS: FERROUS SULFATE 325 MG TABLET. PO SCH ×3 (11:03→20:25)
[2017-08-07] MEDS: APIXABAN 5 MG TABLET. PO SCH ×2 (11:03→20:26)
[2017-08-07] MEDS: LINAGLIPTIN 5 MG TABLET PO SCH (11:03)
[2017-08-07] MEDS: POTASSIUM CHLORIDE 10 MEQ TABLET.ER. PO SCH (11:03)
[2017-08-07] MEDS: CHOLECALCIFEROL (VITAMIN D3) 5,000 UNIT CAPSULE PO SCH (11:03)
[2017-08-07] MEDS: DOCUSATE SODIUM 100 MG CAPSULE. PO SCH (11:04)
[2017-08-07] MEDS: BENZONATATE 100 MG CAPSULE. PO SCH ×3 (11:04→20:24)
--- NOTE | 2017-08-07 11:07 | RAD ---
EXAM: Renal/retroperitonal ultrasound HISTORY: Acute renal failure, hematuria. COMPARISON: None. FINDINGS: Ultrasound of the kidneys, bladder and retroperitoneum was performed. The right kidney measures 11.8 cm. Cortical thickness and echogenicity are preserved. There is no hydronephrosis. A cyst laterally along the right kidney measures 1.2 cm and appears benign. The left kidney is poorly visualized. It measures 11.2 cm. Cortical thickness and echogenicity are grossly preserved. There is no hydronephrosis. The bladder is decompressed by a Aleman catheter. The right hepatic lobe appears enlarged. IMPRESSION: 1. Portable visualization the left kidney. No clear solid masses. CT could further evaluate if there is persistent concern. No hydronephrosis bilaterally. 2. Hepatomegaly.
[2017-08-07] MEDS: HYDROcodone/APAP 10/325 1 TAB TABLET PO PRN ×2 (11:15→18:15)
[2017-08-07] MEDS: VANCOMYCIN 125 MG/2.5 ML ORAL SOLUTION. PO SCH ×4 (11:17→20:27)
[2017-08-07] MEDS: SODIUM CHLORIDE 0.65% NASAL SPRAY 45ML BOTTLE. NS PRN (11:18)
[2017-08-07] MEDS ORDERED: ALBUMIN HUMAN 25% 100 ML IV ONE (11:30)
[2017-08-07] MEDS: INSULIN ASPART 300 UNITS/3 ML INSULN.PEN SQ SCH ×4 (11:41→21:53)
[2017-08-07] MEDS: FLUTICASONE 50MCG/NASAL SPRAY 16GM BOTTLE. NS SCH (11:42)
--- NOTE | 2017-08-07 12:16 | PDOC ---
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 08/07/17 1216: CARDIO Progress Notes Date and Time Date of Service 08/07/17 Time of Evaluation 1145 Subjective Subjective: No Chest Pain, No Palpitations, No Dizziness, Other (SOA improved ) Vitals Vitals Vital Signs Date Time Temp Pulse Resp B/P (MAP) Pulse Ox O2 Delivery O2 Flow Rate FiO2 08/07/17 12:00 97.6 64 26 100/50 (67) 97 Nasal Cannula 3.0 97.6 Weight Weight [ ] Input and Output Intake and Output Intake and Output 08/08/17 07:00 Intake Total 250 ml Output Total 475 ml Balance -225 ml Intake Oral 250 ml Output Urine Total 475 ml Laboratory Labs Laboratory Tests Test 08/06/17 12:28 08/06/17 13:15 08/06/17 17:36 08/06/17 20:42 O2 Saturation 98 % (92-99) Arterial Blood pH 7.50 (7.35-7.45) Arterial Blood pCO2 at Patient Temp 38 mmHg (35-46) Arterial Blood pO2 at Patient Temp 126 mmHg (65-108) Arterial Blood HCO3 29 mmol/L (21-28) Arterial Blood Base Excess 6 mmol/L (-3-3) FiO2 40 White Blood Count 7.6 x10^3/uL (4.0-11.0) Red Blood Count 2.56 x10^6/uL (4.30-5.70) Hemoglobin 7.9 g/dL (13.0-17.5) Hematocrit 23.8 % (39.0-53.0) Mean Corpuscular Volume 93 fL (79-100) Mean Corpuscular Hemoglobin 31 pg (25-35) Mean Corpuscular Hemoglobin Concent 33 g/dL (31-37) Red Cell Distribution Width 14.4 % (11.5-14.5) Platelet Count 403 x10^3/uL (140-400) Glucose (Fingerstick) 246 mg/dL (70-99) 209 mg/dL (70-99) Test 08/07/17 05:15 White Blood Count 7.6 x10^3/uL (4.0-11.0) Red Blood Count 2.47 x10^6/uL (4.30-5.70) Hemoglobin 7.8 g/dL (13.0-17.5) Hematocrit 23.0 % (39.0-53.0) Mean Corpuscular Volume 93 fL (79-100) Mean Corpuscular Hemoglobin 32 pg (25-35) Mean Corpuscular Hemoglobin Concent 34 g/dL (31-37) Red Cell Distribution Width 14.7 % (11.5-14.5) Platelet Count 416 x10^3/uL (140-400) Neutrophils (%) (Auto) 86 % (31-73) Lymphocytes (%) (Auto) 8 % (24-48) Monocytes (%) (Auto) 6 % (0-9) Eosinophils (%) (Auto) 0 % (0-3) Basophils (%) (Auto) 0 % (0-3) Neutrophils # (Auto) 6.5 x10^3uL (1.8-7.7) Lymphocytes # (Auto) 0.6 x10^3/uL (1.0-4.8) Monocytes # (Auto) 0.5 x10^3/uL (0.0-1.1) Eosinophils # (Auto) 0.0 x10^3/uL (0.0-0.7) Basophils # (Auto) 0.0 x10^3/uL (0.0-0.2) Sodium Level 143 mmol/L (136-145) Potassium Level 4.2 mmol/L (3.5-5.1) Chloride Level 104 mmol/L (98-107) Carbon Dioxide Level 33 mmol/L (21-32) Anion Gap 6 (6-14) Blood Urea Nitrogen 128 mg/dL (8-26) Creatinine 2.5 mg/dL (0.7-1.3) Estimated GFR (Cockcroft-Gault) 25.1 BUN/Creatinine Ratio 51 (6-20) Glucose Level 196 mg/dL (70-99) Calcium Level 8.5 mg/dL (8.5-10.1) Total Bilirubin 1.0 mg/dL (0.2-1.0) Aspartate Amino Transf (AST/SGOT) 26 U/L (15-37) Alanine Aminotransferase (ALT/SGPT) 24 U/L (16-63) Alkaline Phosphatase 64 U/L (46-116) Total Protein 6.1 g/dL (6.4-8.2) Albumin 1.9 g/dL (3.4-5.0) Albumin/Globulin Ratio 0.5 (1.0-1.7) Microbiology Micro Microbiology 08/05/17 Blood Culture - Preliminary, Resulted 08/05/17 Blood Culture Result 1 (FABIO) - Preliminary, Resulted 08/05/17 Urine Culture - Preliminary, Resulted 08/05/17 Urine Culture Result 1 (FABIO) - Preliminary, Resulted Physical Exam HEENT: Neck Supple W Full Motion Chest: Symmetric LUNGS: Other (diminished bases with faint crackles) Heart: S1S2, RRR, murmurs (distant heart tones) Abdomen: Soft N/T, Other (obese) Extremities: Other (-2+ bilateral LE edema ) Neurology: alert, oriented, follow commands Assessment Assessment 1. Acute on chronic diastolic CHF; improved with diuresis. Echo showed normal LV systolic function and moderate to severe pulm hypertension. Continue diuresis as BP allows. 2. Leukocytosis with possible sepsis: continue IV antibiotic therapy as per ID. 3. 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 Severe protein malnutrition 5. PAFIB: s/p recent cardioversion at [facility]. Presently in SR with PACs. Continue Amiodarone for rhythm maintenance. Eliquis for stroke prophylaxis unless GI bleed is noted. No gross hematuria noted 6. HTN: low-normotensive. Improved with albumin 7. DM2/HLP: statin 8. Anemia: Hgb stable at 7.8. LILY KEENE MD 08/07/17 1639: CARDIO Progress Notes Assessment Assessment Patient seen and examined. Agree with JAILER's assessment and plan. Acute on chronic diastolic heart failure better compensated. Continue diuretics. Paroxysmal atrial fibrillation maintaining sinus rhythm with amiodarone. Continue Eliquis for stroke prophylaxis. RACIEL BEE APRN Aug 07, 2017 12:16 LILY KEENE MD Aug 07, 2017 16:39
--- NOTE | 2017-08-07 13:36 | PDOC ---
PROGRESS NOTES Chief Complaint Chief Complaint Pneumonia Hypoxia Renal failure Sepsis Afib CHF Diabetes HTN Hypercholesterolemia SOB Cough Obesity BMI 37 History of Present Illness History of Present Illness Pt was seen at bedside in the ICU. Pt is in less respiratory distress today. Echocardiogram revealed an ejection fraction of 60-65%. Pt is positive for c diff and MRSA. Pt is septic. Pt is currently on PO vancomycin. Still currently in a fib. Discussed plan with . Labs indicated elevated BUN and creatinine. Pt is being seen by nephrology, infectious disease, cardiology, and physiatry. Will evaluate possibility of transfer to SNU. Will continue ICU monitoring Vitals Vitals Vital Signs Date Time Temp Pulse Resp B/P (MAP) Pulse Ox O2 Delivery O2 Flow Rate FiO2 08/07/17 12:20 99 Nasal Cannula 3.0 08/07/17 12:15 22 08/07/17 12:00 97.6 64 100/50 (67) 97.6 Physical Exam Physical Exam Atrial fibrillation General: Alert, Oriented X3, Cooperative, mild distress Heart: Regular rate (SR with PACs), Other (S4; distant heart sounds) Lungs: Clear, Crackles Abdomen: Normal bowel sounds, Soft, Other (obese) Extremities: No cyanosis, No edema Skin: No rashes, No breakdown, No significant lesion, Other (leg lesions noted in chart) Labs LABS Laboratory Tests Test 08/06/17 17:36 08/06/17 20:42 08/07/17 05:15 Glucose (Fingerstick) 246 mg/dL (70-99) 209 mg/dL (70-99) White Blood Count 7.6 x10^3/uL (4.0-11.0) Red Blood Count 2.47 x10^6/uL (4.30-5.70) Hemoglobin 7.8 g/dL (13.0-17.5) Hematocrit 23.0 % (39.0-53.0) Mean Corpuscular Volume 93 fL (79-100) Mean Corpuscular Hemoglobin 32 pg (25-35) Mean Corpuscular Hemoglobin Concent 34 g/dL (31-37) Red Cell Distribution Width 14.7 % (11.5-14.5) Platelet Count 416 x10^3/uL (140-400) Neutrophils (%) (Auto) 86 % (31-73) Lymphocytes (%) (Auto) 8 % (24-48) Monocytes (%) (Auto) 6 % (0-9) Eosinophils (%) (Auto) 0 % (0-3) Basophils (%) (Auto) 0 % (0-3) Neutrophils # (Auto) 6.5 x10^3uL (1.8-7.7) Lymphocytes # (Auto) 0.6 x10^3/uL (1.0-4.8) Monocytes # (Auto) 0.5 x10^3/uL (0.0-1.1) Eosinophils # (Auto) 0.0 x10^3/uL (0.0-0.7) Basophils # (Auto) 0.0 x10^3/uL (0.0-0.2) Sodium Level 143 mmol/L (136-145) Potassium Level 4.2 mmol/L (3.5-5.1) Chloride Level 104 mmol/L (98-107) Carbon Dioxide Level 33 mmol/L (21-32) Anion Gap 6 (6-14) Blood Urea Nitrogen 128 mg/dL (8-26) Creatinine 2.5 mg/dL (0.7-1.3) Estimated GFR (Cockcroft-Gault) 25.1 BUN/Creatinine Ratio 51 (6-20) Glucose Level 196 mg/dL (70-99) Calcium Level 8.5 mg/dL (8.5-10.1) Total Bilirubin 1.0 mg/dL (0.2-1.0) Aspartate Amino Transf (AST/SGOT) 26 U/L (15-37) Alanine Aminotransferase (ALT/SGPT) 24 U/L (16-63) Alkaline Phosphatase 64 U/L (46-116) Total Protein 6.1 g/dL (6.4-8.2) Albumin 1.9 g/dL (3.4-5.0) Albumin/Globulin Ratio 0.5 (1.0-1.7) Review of Systems Review of Systems Pt was seen at bedside. Pt complains of weakness and fatigue. Pt has less respiratory distress today. Assessment and Plan Assessmemt and Plan Problems Medical Problems: (1) Anemia Status: Acute (2) Dyspnea Status: Acute (3) Fever Status: Acute (4) Hyperkalemia Status: Acute (5) Leukocytosis Status: Acute (6) Renal insufficiency Status: Acute Assessment: Pneumonia Hypoxia Renal failure Sepsis Afib CHF Diabetes HTN Hypercholesterolemia SOB Cough Obesity BMI 37 Plan: Continue ICU monitoring Continue PO vancomycin Evaluate for SNU Continue monitoring renal function Continue home meds Continue PT/OT Recheck labs Appreciate subspecialty input Problems: Comment Review of Relevant I have reviewed the following items marlon (where applicable) has been applied. Labs Laboratory Tests Test 08/05/17 17:05 08/05/17 17:10 08/05/17 18:10 08/05/17 19:30 White Blood Count 12.6 x10^3/uL (4.0-11.0) Red Blood Count 2.68 x10^6/uL (4.30-5.70) Hemoglobin 8.4 g/dL (13.0-17.5) Hematocrit 25.1 % (39.0-53.0) Mean Corpuscular Volume 94 fL (79-100) Mean Corpuscular Hemoglobin 31 pg (25-35) Mean Corpuscular Hemoglobin Concent 33 g/dL (31-37) Red Cell Distribution Width 15.0 % (11.5-14.5) Platelet Count 405 x10^3/uL (140-400) Neutrophils (%) (Auto) 86 % (31-73) Lymphocytes (%) (Auto) 6 % (24-48) Monocytes (%) (Auto) 7 % (0-9) Eosinophils (%) (Auto) 1 % (0-3) Basophils (%) (Auto) 1 % (0-3) Neutrophils # (Auto) 10.9 x10^3uL (1.8-7.7) Lymphocytes # (Auto) 0.8 x10^3/uL (1.0-4.8) Monocytes # (Auto) 0.8 x10^3/uL (0.0-1.1) Eosinophils # (Auto) 0.1 x10^3/uL (0.0-0.7) Basophils # (Auto) 0.1 x10^3/uL (0.0-0.2) Segmented Neutrophils % 86 % (35-66) Band Neutrophils % 3 % (0-9) Lymphocytes % 4 % (24-48) Monocytes % 5 % (0-10) Eosinophils % 1 % (0-5) Myelocytes % 1 % (0-0) Toxic Granulation Slight Platelet Estimate Adequate (ADEQUATE) Hypochromasia Slight Anisocytosis Slight Sodium Level 138 mmol/L (136-145) Potassium Level 5.8 mmol/L (3.5-5.1) Chloride Level 101 mmol/L (98-107) Carbon Dioxide Level 34 mmol/L (21-32) Anion Gap 3 (6-14) Blood Urea Nitrogen 120 mg/dL (8-26) Creatinine 2.6 mg/dL (0.7-1.3) Estimated GFR (Cockcroft-Gault) 24.0 Glucose Level 259 mg/dL (70-99) Lactic Acid Level 1.8 mmol/L (0.4-2.0) Calcium Level 8.4 mg/dL (8.5-10.1) Magnesium Level 2.8 mg/dL (1.8-2.4) Total Bilirubin 1.1 mg/dL (0.2-1.0) Direct Bilirubin 0.4 mg/dL (0.0-0.2) Aspartate Amino Transf (AST/SGOT) 45 U/L (15-37) Alanine Aminotransferase (ALT/SGPT) 26 U/L (16-63) Alkaline Phosphatase 76 U/L (46-116) Creatine Kinase 122 U/L (39-308) Creatine Kinase MB (Mass) < 0.5 ng/mL (0.0-3.6) Creatine Kinase MB Relative Index 0.4 % (0-4) Troponin I Quantitative 0.038 ng/mL (0.000-0.055) TN-Rxi-[id number]-Type Natriuretic Peptide 5157 pg/mL (0-449) Total Protein 6.5 g/dL (6.4-8.2) Albumin 1.6 g/dL (3.4-5.0) Lipase 160 U/L (73-393) Thyroid Stimulating Hormone (TSH) 3.670 uIU/mL (0.358-3.74) Urine Collection Type U cath Urine Color [place] Urine Clarity Turbid Urine pH 5.0 Urine Specific [place] 1.020 Urine Protein 100 mg/dL (NEG-TRACE) Urine Glucose (UA) Negative mg/dL (NEG) Urine Ketones (Stick) Negative mg/dL (NEG) Urine Blood Large (NEG) Urine Nitrite Negative (NEG) Urine Bilirubin Small (NEG) Urine Urobilinogen Dipstick 1.0 mg/dL (0.2 mg/dL) Urine Leukocyte Esterase Small (NEG) Urine RBC >40 /HPF (0-2) Urine WBC Occ /HPF (0-4) Urine Amorphous Sediment Present /HPF Urine Bacteria Few /HPF (0-FEW) Urine Hyaline Casts Moderate /HPF Influenza Type A Antigen Negative (NEGATIVE) Influenza Type B Antigen Negative (NEGATIVE) Nasal Screen MRSA (PCR) Positive (Negative) Test 08/05/17 20:00 08/06/17 00:25 08/06/17 06:00 08/06/17 10:10 Lactic Acid Level 1.0 mmol/L (0.4-2.0) Troponin I Quantitative 0.036 ng/mL (0.000-0.055) 0.032 ng/mL (0.000-0.055) White Blood Count 7.4 x10^3/uL (4.0-11.0) Red Blood Count 2.37 x10^6/uL (4.30-5.70) Hemoglobin 7.3 g/dL (13.0-17.5) Hematocrit 22.3 % (39.0-53.0) Mean Corpuscular Volume 94 fL (79-100) Mean Corpuscular Hemoglobin 31 pg (25-35) Mean Corpuscular Hemoglobin Concent 33 g/dL (31-37) Red Cell Distribution Width 14.7 % (11.5-14.5) Platelet Count 330 x10^3/uL (140-400) Neutrophils (%) (Auto) 93 % (31-73) Lymphocytes (%) (Auto) 6 % (24-48) Monocytes (%) (Auto) 1 % (0-9) Eosinophils (%) (Auto) 0 % (0-3) Basophils (%) (Auto) 0 % (0-3) Neutrophils # (Auto) 6.9 x10^3uL (1.8-7.7) Lymphocytes # (Auto) 0.4 x10^3/uL (1.0-4.8) Monocytes # (Auto) 0.1 x10^3/uL (0.0-1.1) Eosinophils # (Auto) 0.0 x10^3/uL (0.0-0.7) Basophils # (Auto) 0.0 x10^3/uL (0.0-0.2) Sodium Level 142 mmol/L (136-145) Potassium Level 5.1 mmol/L (3.5-5.1) Chloride Level 104 mmol/L (98-107) Carbon Dioxide Level 32 mmol/L (21-32) Anion Gap 6 (6-14) Blood Urea Nitrogen 125 mg/dL (8-26) Creatinine 2.4 mg/dL (0.7-1.3) Estimated GFR (Cockcroft-Gault) 26.3 BUN/Creatinine Ratio 52 (6-20) Glucose Level 250 mg/dL (70-99) Calcium Level 7.8 mg/dL (8.5-10.1) Total Bilirubin 0.8 mg/dL (0.2-1.0) Aspartate Amino Transf (AST/SGOT) 30 U/L (15-37) Alanine Aminotransferase (ALT/SGPT) 22 U/L (16-63) Alkaline Phosphatase 68 U/L (46-116) Total Protein 5.4 g/dL (6.4-8.2) Albumin 1.5 g/dL (3.4-5.0) Albumin/Globulin Ratio 0.4 (1.0-1.7) Procalcitonin 0.48 ng/mL (0.00-0.10) Clostridium difficile Toxin (PCR) Positive (Negative) Test 08/06/17 12:28 08/06/17 13:15 08/06/17 17:36 08/06/17 20:42 O2 Saturation 98 % (92-99) Arterial Blood pH 7.50 (7.35-7.45) Arterial Blood pCO2 at Patient Temp 38 mmHg (35-46) Arterial Blood pO2 at Patient Temp 126 mmHg (65-108) Arterial Blood HCO3 29 mmol/L (21-28) Arterial Blood Base Excess 6 mmol/L (-3-3) FiO2 40 White Blood Count 7.6 x10^3/uL (4.0-11.0) Red Blood Count 2.56 x10^6/uL (4.30-5.70) Hemoglobin 7.9 g/dL (13.0-17.5) Hematocrit 23.8 % (39.0-53.0) Mean Corpuscular Volume 93 fL (79-100) Mean Corpuscular Hemoglobin 31 pg (25-35) Mean Corpuscular Hemoglobin Concent 33 g/dL (31-37) Red Cell Distribution Width 14.4 % (11.5-14.5) Platelet Count 403 x10^3/uL (140-400) Glucose (Fingerstick) 246 mg/dL (70-99) 209 mg/dL (70-99) Test 08/07/17 05:15 White Blood Count 7.6 x10^3/uL (4.0-11.0) Red Blood Count 2.47 x10^6/uL (4.30-5.70) Hemoglobin 7.8 g/dL (13.0-17.5) Hematocrit 23.0 % (39.0-53.0) Mean Corpuscular Volume 93 fL (79-100) Mean Corpuscular Hemoglobin 32 pg (25-35) Mean Corpuscular Hemoglobin Concent 34 g/dL (31-37) Red Cell Distribution Width 14.7 % (11.5-14.5) Platelet Count 416 x10^3/uL (140-400) Neutrophils (%) (Auto) 86 % (31-73) Lymphocytes (%) (Auto) 8 % (24-48) Monocytes (%) (Auto) 6 % (0-9) Eosinophils (%) (Auto) 0 % (0-3) Basophils (%) (Auto) 0 % (0-3) Neutrophils # (Auto) 6.5 x10^3uL (1.8-7.7) Lymphocytes # (Auto) 0.6 x10^3/uL (1.0-4.8) Monocytes # (Auto) 0.5 x10^3/uL (0.0-1.1) Eosinophils # (Auto) 0.0 x10^3/uL (0.0-0.7) Basophils # (Auto) 0.0 x10^3/uL (0.0-0.2) Sodium Level 143 mmol/L (136-145) Potassium Level 4.2 mmol/L (3.5-5.1) Chloride Level 104 mmol/L (98-107) Carbon Dioxide Level 33 mmol/L (21-32) Anion Gap 6 (6-14) Blood Urea Nitrogen 128 mg/dL (8-26) Creatinine 2.5 mg/dL (0.7-1.3) Estimated GFR (Cockcroft-Gault) 25.1 BUN/Creatinine Ratio 51 (6-20) Glucose Level 196 mg/dL (70-99) Calcium Level 8.5 mg/dL (8.5-10.1) Total Bilirubin 1.0 mg/dL (0.2-1.0) Aspartate Amino Transf (AST/SGOT) 26 U/L (15-37) Alanine Aminotransferase (ALT/SGPT) 24 U/L (16-63) Alkaline Phosphatase 64 U/L (46-116) Total Protein 6.1 g/dL (6.4-8.2) Albumin 1.9 g/dL (3.4-5.0) Albumin/Globulin Ratio 0.5 (1.0-1.7) Laboratory Tests Test 08/06/17 17:36 08/06/17 20:42 08/07/17 05:15 Glucose (Fingerstick) 246 mg/dL (70-99) 209 mg/dL (70-99) White Blood Count 7.6 x10^3/uL (4.0-11.0) Red Blood Count 2.47 x10^6/uL (4.30-5.70) Hemoglobin 7.8 g/dL (13.0-17.5) Hematocrit 23.0 % (39.0-53.0) Mean Corpuscular Volume 93 fL (79-100) Mean Corpuscular Hemoglobin 32 pg (25-35) Mean Corpuscular Hemoglobin Concent 34 g/dL (31-37) Red Cell Distribution Width 14.7 % (11.5-14.5) Platelet Count 416 x10^3/uL (140-400) Neutrophils (%) (Auto) 86 % (31-73) Lymphocytes (%) (Auto) 8 % (24-48) Monocytes (%) (Auto) 6 % (0-9) Eosinophils (%) (Auto) 0 % (0-3) Basophils (%) (Auto) 0 % (0-3) Neutrophils # (Auto) 6.5 x10^3uL (1.8-7.7) Lymphocytes # (Auto) 0.6 x10^3/uL (1.0-4.8) Monocytes # (Auto) 0.5 x10^3/uL (0.0-1.1) Eosinophils # (Auto) 0.0 x10^3/uL (0.0-0.7) Basophils # (Auto) 0.0 x10^3/uL (0.0-0.2) Sodium Level 143 mmol/L (136-145) Potassium Level 4.2 mmol/L (3.5-5.1) Chloride Level 104 mmol/L (98-107) Carbon Dioxide Level 33 mmol/L (21-32) Anion Gap 6 (6-14) Blood Urea Nitrogen 128 mg/dL (8-26) Creatinine 2.5 mg/dL (0.7-1.3) Estimated GFR (Cockcroft-Gault) 25.1 BUN/Creatinine Ratio 51 (6-20) Glucose Level 196 mg/dL (70-99) Calcium Level 8.5 mg/dL (8.5-10.1) Total Bilirubin 1.0 mg/dL (0.2-1.0) Aspartate Amino Transf (AST/SGOT) 26 U/L (15-37) Alanine Aminotransferase (ALT/SGPT) 24 U/L (16-63) Alkaline Phosphatase 64 U/L (46-116) Total Protein 6.1 g/dL (6.4-8.2) Albumin 1.9 g/dL (3.4-5.0) Albumin/Globulin Ratio 0.5 (1.0-1.7) Microbiology 08/05/17 Blood Culture - Preliminary, Resulted 08/05/17 Blood Culture Result 1 (FABIO) - Preliminary, Resulted 08/05/17 Urine Culture - Preliminary, Resulted 08/05/17 Urine Culture Result 1 (FABIO) - Preliminary, Resulted Medications Current Medications Sodium Chloride (Normal Saline Flush) 10 ml 1X ONCE IV Last administered on 08:01; Start 08/05/17 at 17:00; Stop 08/05/17 at 17:01; Status DC Sodium Chloride 1,000 ml @ 1,000 mls/hr Q1H IV Last administered on 17:22; Start 08/05/17 at 16:55; Stop 08/05/17 at 17:54; Status DC Albuterol/ Ipratropium (Duoneb) 3 ml 1X ONCE NEB Last administered on t 17:17; Start 08/05/17 at 17:00; Stop 08/05/17 at 17:01; Status DC Methylprednisolone Sodium Succinate (SOLU-Medrol 125MG VIAL) 125 mg 1X ONCE IV Last administered on 08/05/17 17:25; Start 08/05/17 at 17:00; Stop at 17:01; Status DC Acetaminophen (Tylenol) 650 mg 1X ONCE PO Last administered on 08/05/17 17: 27; Start 08/05/17 at 17:00; Stop 08/05/17 at 17:01; Status DC Ceftriaxone Sodium 1 gm/ Sodium Chloride 50 ml @ 100 mls/hr 1X ONCE IV ; Start 08/05/17 at 17:00; Stop 08/05/17 at 17:29; Status UNV Azithromycin 500 mg/Sodium Chloride 250 ml @ 250 mls/hr 1X ONCE IV ; Start at 17:00; Stop 08/05/17 at 17:59; Status UNV Azithromycin 250 ml @ 250 mls/hr 1X ONCE IV Last administered on 08/05/17 18:53; Start 08/05/17 at 17:15; Stop 08/05/17 at 18:14; Status DC Ceftriaxone Sodium 50 ml @ 100 mls/hr 1X ONCE IV Last administered on 17:30; Start 08/05/17 at 17:15; Stop 08/05/17 at 17:44; Status DC Ondansetron HCl (Zofran) 4 mg PRN Q8HRS PRN IV NAUSEA/VOMITING; Start at 18:15; Stop 08/06/17 at 18:14; Status DC Fentanyl Citrate (Fentanyl 2ml Vial) 50 mcg PRN Q1HR PRN IV PAIN; Start at 18:15; Stop 08/06/17 at 18:14; Status DC Acetaminophen (Tylenol) 650 mg PRN Q4HRS PRN PO FEVER; Start 08/05/17 at 18:15 ; Stop 08/06/17 at 13:01; Status DC Furosemide (Lasix) 40 mg 1X ONCE IVP Last administered on 08/05/17 18:50; Start 08/05/17 at 18:15; Stop 08/05/17 at 18:16; Status DC Sodium Chloride 1,000 ml @ 1,000 mls/hr Q1H IV Last administered on 21:10; Start 08/05/17 at 18:06; Stop 08/05/17 at 19:05; Status DC Sodium Chloride (Normal Saline Flush) 10 ml QSHIFT PRN IV AFTER MEDS AND BLOOD DRAWS; Start 08/05/17 at 18:15 Enoxaparin Sodium (Lovenox 120mg Syringe) 120 mg 1X ONCE SQ Last administered on 08/05/17 18:50; Start 08/05/17 at 18:30; Stop 08/05/17 at 18:31; Status DC Docusate Sodium (Colace) 100 mg DAILY PO Last administered on 08/07/17 11:04 ; Start 08/06/17 at 09:00 Docusate Sodium (Colace) 100 mg PRN DAILY PRN PO CONSTIPATION; Start 08/05/17 at 23:00 Polyethylene Glycol (miraLAX PACKET) 17 gm DAILY PO ; Start 08/06/17 at 09:00 Polyethylene Glycol (miraLAX PACKET) 17 gm PRN DAILY PRN PO CONSTIPATION; Start 08/05/17 at 23:00 Piperacillin Sod/ Tazobactam Sod (Zosyn Per Pharmacy) 1 each PRN DAILY PRN MC SEE COMMENTS; Start 08/05/17 at 23:00; Stop 08/06/17 at 07:35; Status DC Vancomycin HCl (Vanco Per Pharmacy) 1 each PRN DAILY PRN MC SEE COMMENTS Last administered on 08/06/17 01:23; Start 08/05/17 at 23:00; Stop 08/06/17 at 08 :02; Status DC Vancomycin HCl 2 gm/Sodium Chloride 500 ml @ 250 mls/hr 1X ONCE IV Last administered on 08/05/17 23:26; Start 08/05/17 at 23:30; Stop 08/06/17 at 01 :29; Status DC Piperacillin Sod/ Tazobactam Sod 3.375 gm/Sodium Chloride 50 ml @ 100 mls/hr Q6HRS IV Last administered on 08/07/17 05:40; Start 08/06/17 at 00:00; Stop 08/07/17 at 07:19; Status DC Vancomycin HCl 2 gm/Sodium Chloride 500 ml @ 250 mls/hr Q24H IV ; Start at 23:00; Stop 08/06/17 at 23:00; Status DC Vancomycin HCl 1 each 1X ONCE MC ; Start 08/07/17 at 22:30; Stop 08/07/17 at 22:30; Status DC Furosemide (Lasix) 40 mg 1X ONCE IVP Last administered on 08/06/17 07:56; Start 08/06/17 at 08:00; Stop 08/06/17 at 08:01; Status DC Linezolid 300 ml @ 300 mls/hr Q12HR IV Last administered on 08/07/17 11:18; Start 08/06/17 at 09:00 Acetaminophen/ Hydrocodone Bitart (Lortab 7.5/325) 1 tab PRN Q6HRS PRN PO PAIN Last administered on 08/06/17 10:22; Start 08/06/17 at 09:45 Acetaminophen (Tylenol) 650 mg PRN Q6HRS PRN PO MILD PAIN; Start 08/06/17 at 11:15 Amiodarone HCl (Cordarone) 200 mg DAILY PO Last administered on 08/07/17 11: 02; Start 08/06/17 at 12:00 Apixaban (Eliquis) 5 mg BID PO Last administered on 08/07/17 11:03; Start at 12:00 Bisacodyl (Dulcolax Supp) 10 mg PRN DAILY PRN RC CONSTIPATION; Start 08/06/17 at 11:15 Famotidine (Pepcid) 20 mg BID PO Last administered on 08/06/17 20:39; Start 08/06/17 at 12:00; Stop 08/07/17 at 09:56; Status DC Ferrous Sulfate (Feosol) 325 mg TID PO Last administered on 08/07/17 11:03; Start 08/06/17 at 14:00 Fluticasone Propionate (Flonase) 2 spray DAILY NS Last administered on 11:42; Start 08/06/17 at 12:00 Furosemide (Lasix) 40 mg [id number] PO ; Start 08/06/17 at 14:00; Stop 08/06/17 at 14:00; Status DC Furosemide (Lasix) 40 mg DAILY PO ; Start 08/07/17 at 09:00; Status UNV Hydralazine HCl (Apresoline) 10 mg QID PO ; Start 08/06/17 at 14:00; Stop at 14:00; Status DC Acetaminophen/ Hydrocodone Bitart (Lortab 10/325) 1 tab PRN Q6HRS PRN PO PAIN Last administered on 08/07/17 11:15; Start 08/06/17 at 11:15 Albuterol/ Ipratropium (Duoneb) 3 ml RTQID NEB Last administered on 08/07/17 12:19; Start 08/06/17 at 12:00 Linagliptin (Tradjenta) 5 mg DAILY PO Last administered on 08/07/17 11:03; Start 08/06/17 at 12:00 Magnesium Hydroxide (Milk Of Magnesia) 2,400 mg DAILY PRN PO CONSTIPATION; Start 08/06/17 at 11:15 Metolazone (Zaroxolyn) 2.5 mg DAILY PO Last administered on 08/07/17 11:02; Start 08/06/17 at 12:00 Sacubitril/ Valsartan (Entresto 24 Mg-26 Mg) 1 tab DAILY PO ; Start 08/06/17 at 13:00; Stop 08/06/17 at 13:00; Status DC Senna/Docusate Sodium (Senna Plus) 1 tab DAILY PRN PO CONSTIPATION; Start at 11:15 Atorvastatin Calcium (Lipitor) 80 mg QHS PO Last administered on 08/06/17 20: 39; Start 08/06/17 at 21:00 Benzonatate (Tessalon Perle) 200 mg [id number] PO Last administered on 08/07/17 11:04; Start 08/06/17 at 14:00 Vitamin D (Vitamin D3) 5,000 unit DAILY PO Last administered on 08/07/17 11: 03; Start 08/07/17 at 09:00 Fenofibrate (Lofibra) 134 mg QHS PO Last administered on 08/06/17 20:39; Start 08/06/17 at 21:00 Non-Formulary Medication 100 unit QID SQ ; Start 08/06/17 at 13:00; Status UNV Lubiprostone (Amitiza) 24 mcg BIDWMEALS PO Last administered on 08/06/17 17: 54; Start 08/06/17 at 12:00 Pioglitazone HCl (Actos) 30 mg DAILY PO ; Start 08/06/17 at 12:00; Stop at 12:26; Status DC Potassium Chloride (Klor-Con) 10 meq [id number] PO Last administered on 11:03; Start 08/06/17 at 12:00 Insulin Aspart (NovoLOG) 0-9 UNITS QID SQ Last administered on 08/07/17 13:12 ; Start 08/06/17 at 17:00 Dextrose (Dextrose 50%-Water Syringe) 12.5 gm PRN Q15MIN PRN IV SEE COMMENTS; Start 08/06/17 at 12:15 Apixaban (Eliquis) 2.5 mg BID PO ; Start 08/06/17 at 21:00; Status UNV Albumin Human 100 ml @ 100 mls/hr 1X ONCE IV Last administered on 08/06/17 15:09; Start 08/06/17 at 13:00; Stop 08/06/17 at 13:59; Status DC Furosemide (Lasix) 40 mg 1X ONCE IVP Last administered on 08/06/17 16:18; Start 08/06/17 at 14:00; Stop 08/06/17 at 14:01; Status DC Furosemide (Lasix) 40 mg DAILY IVP ; Start 08/07/17 at 09:00 Sodium Chloride (Saline Mist Nasal) 1 joseph PRN Q1HR PRN NS NASAL CONGESTION Last administered on 08/07/17 11:18; Start 08/06/17 at 16:30 Metronidazole 100 ml @ 100 mls/hr Q8HRS IV Last administered on 08/07/17 05: 40; Start 08/06/17 at 22:00; Stop 08/07/17 at 07:19; Status DC Vancomycin HCl 125 mg [id number] PO Last administered on 08/07/17 13:15; Start 08/07/17 at 09:00 Info (Anti-Coagulation Monitoring By Pharmacy) 1 each PRN DAILY PRN MC SEE COMMENTS Last administered on 08/07/17 09:54; Start 08/07/17 at 08:00 Famotidine (Pepcid) 20 mg DAILY PO ; Start 08/08/17 at 09:00 Albumin Human 100 ml @ 100 mls/hr 1X ONCE IV Last administered on 10/18/17at 11:38; Start 08/07/17 at 11:30; Stop 08/07/17 at 12:29; Status DC Active Scripts Active Reported Tradjenta (Linagliptin) 5 Mg Tablet 5 Mg PO DAILY Senna Plus Tablet (Sennosides/Docusate Sodium) 1 Each Tablet 1 Each PO DAILY PRN Potassium Chloride 10 Meq Capsule.er 20 Meq PO DAILY Actos (Pioglitazone Hcl) 30 Mg Tablet 1 Tab PO DAILY [place] 10-325 Tablet (Acetaminophen/Hydrocodone Bitart) 1 Each Tablet 1 Tab PO PRN Q6HRS PRN Milk Of Magnesia (Magnesium Hydroxide) 400 Mg/5 Ml Oral.susp 30 Ml PO DAILY PRN Metolazone 2.5 Mg Tablet 2.5 Mg PO DAILY Humalog (Insulin Lispro) 100 Unit/1 Ml Insuln.pen 100 Units SQ QID inject as per sliding scale: if 151-200 = 3; 201-250 = 4; 251-200 = 6; 301-350 = 9; 351-400 = 12; 401+ = 12 and call physician; subq four times a day for DM Hydralazine Hcl 10 Mg Tablet 10 Mg PO QID Furosemide 40 Mg Tablet 40 Mg PO BID Fluticasone Propionate Nasal [place] (Fluticasone Propionate) 16 Gm [place].susp 2 [place] NS DAILY Fleet Enema (Na Phos,M-B/Na Phos,Di-Ba) 133 Ml Enema 118 Ml RC PRN PRN Ferrous Sulfate 325 Mg Tablet 325 Mg PO TID Trilipix (Fenofibric Acid (Choline)) 135 Mg Capsule.dr 135 Mg PO HS Famotidine 20 Mg Tablet 20 Mg PO BID Entresto 24 mg-26 mg Tablet (Sacubitril/Valsartan) 1 Each Tablet 1 Each PO DAILY Duoneb 0.5-3(2.5) Mg/3 Ml (Albuterol/Ipratropium) 3 Ml Ampul.neb 3 Ml NEB QID Dulcolax (Bisacodyl) 10 Mg Supp.rect 10 Mg RC PRN DAILY PRN Ear Wax Drops (Carbamide Peroxide) 15 Ml Drops 15 Ml OT INSTILL 5 DROPS IN BOTH EARS ONE TIME A DAY FOR CERUMEN IMPACTION FOR 4 DAYS. LEAVE IN EAR 5 MINUTES BEFORE TREATING OTHER EAR. Vitamin D (Cholecalciferol (Vitamin D3)) 2,000 Unit Capsule 5,000 Unit PO DAILY Benzonatate 200 Mg Capsule 200 Mg PO TID Eliquis (Apixaban) 5 Mg Tablet 5 Mg PO BID Amiodarone Hcl 200 Mg Tablet 200 Mg PO DAILY Acetaminophen 500 Mg Tablet 650 Mg PO Q4HRS PRN Lipitor (Atorvastatin Calcium) 80 Mg Tablet 80 Mg PO HS Vitals/I & O Vital Sign - Last 24 Hours 08/06/17 08/06/17 08/06/17 08/06/17 14:00 15:00 15:09 15:57 Pulse 74 69 67 Resp 30 30 B/P (MAP) 137/45 (75) 138/54 (82) 138/54 Pulse Ox 94 93 O2 Delivery Nasal Cannula Nasal Cannula Nasal Cannula O2 Flow Rate 5.0 5.0 3.0 08/06/17 08/06/17 08/06/17 08/06/17 16:00 16:00 16:26 17:00 Temp 98.0 98.0 Pulse 77 72 Resp 30 30 30 B/P (MAP) 110/54 (72) 117/46 (69) Pulse Ox 90 90 91 O2 Delivery Nasal Cannula Nasal Cannula Nasal Cannula Nasal Cannula O2 Flow Rate 3.0 3.0 3.0 5.0 08/06/17 08/06/17 08/06/17 08/06/17 17:38 18:00 19:00 19:12 Pulse 78 87 Resp 26 31 B/P (MAP) 107/49 (68) 110/70 (83) Pulse Ox 93 92 93 93 O2 Delivery Nasal Cannula Nasal Cannula Nasal Cannula O2 Flow Rate 5.0 5.0 5.0 08/06/17 08/06/17 08/06/17 08/06/17 20:00 20:00 21:00 22:00 Temp 97.3 97.3 Pulse 72 80 71 Resp 31 32 37 B/P (MAP) 104/41 (62) 114/68 (83) 94/43 (60) Pulse Ox 92 97 96 O2 Delivery Nasal Cannula Nasal Cannula Nasal Cannula Nasal Cannula O2 Flow Rate 5.0 5.0 5.0 5.0 08/06/17 08/06/17 08/07/17 08/07/17 23:00 23:59 00:00 01:00 Temp 96.9 96.9 Pulse 75 64 62 Resp 39 31 30 B/P (MAP) 105/39 (61) 90/38 (55) 90/39 (56) Pulse Ox 95 98 97 O2 Delivery Nasal Cannula Nasal Cannula Nasal Cannula Nasal Cannula O2 Flow Rate 5.0 5.0 5.0 5.0 08/07/17 08/07/17 08/07/17 08/07/17 02:00 03:00 04:00 04:00 Temp 97.5 97.5 Pulse 62 70 57 Resp 25 31 23 B/P (MAP) 83/43 (56) 108/48 (68) 88/42 (57) Pulse Ox 97 95 97 O2 Delivery Nasal Cannula Nasal Cannula Nasal Cannula Nasal Cannula O2 Flow Rate 5.0 5.0 5.0 5.0 08/07/17 08/07/17 08/07/17 08/07/17 05:00 06:00 07:00 08:00 Pulse 57 64 60 Resp 25 22 24 B/P (MAP) 94/45 (61) 92/51 (65) 101/48 (65) Pulse Ox 96 97 98 O2 Delivery Nasal Cannula Nasal Cannula Nasal Cannula Nasal Cannula O2 Flow Rate 5.0 5.0 5.0 5.0 08/07/17 08/07/17 08/07/17 08/07/17 08:00 08:08 09:00 10:00 Temp 97.7 97.7 Pulse 58 62 63 Resp 22 21 25 B/P (MAP) 100/48 (65) 94/48 (63) 83/47 (59) Pulse Ox 97 99 93 95 O2 Delivery Nasal Cannula Nasal Cannula Nasal Cannula Nasal Cannula O2 Flow Rate 3.0 3.0 3.0 3.0 08/07/17 08/07/17 08/07/17 08/07/17 11:02 11:15 12:00 12:15 Temp 97.6 97.6 Pulse 66 64 Resp 32 26 22 B/P (MAP) 90/48 100/50 (67) Pulse Ox 97 O2 Delivery Nasal Cannula Nasal Cannula Nasal Cannula O2 Flow Rate 5.0 3.0 3.0 08/07/17 12:20 Pulse Ox 99 O2 Delivery Nasal Cannula O2 Flow Rate 3.0 Intake and Output 08/07/17 08/07/17 08/08/17 15:00 23:00 07:00 Intake Total 250 ml Output Total 475 ml Balance -225 ml CASTLE,NIAL K III DO Aug 07, 2017 13:36
[2017-08-07] MEDS: FENOFIBRATE,MICRONIZED 134 MG CAPSULE PO SCH (20:25)
[2017-08-07] MEDS: ATORVASTATIN CALCIUM 40 MG TABLET. PO SCH (20:26)
[2017-08-08] MEDS: HYDROcodone/APAP 10/325 1 TAB TABLET PO PRN ×2 (03:57→12:18)
[2017-08-08 03:58] VITALS: BP 106/52
[2017-08-08 05:51] LABS: BASO % 0 % (0-3); EOS % 2 % (0-3); HEMATOCRIT 24.4 % (39.0-53.0); LYMPH # 0.5 x10^3/uL (1.0-4.8); LYMPH % 6 % (24-48); MEAN CORPUSCULAR HEMOGLOBIN 31 pg (25-35); MEAN CORPUSCULAR HGB CONC 33 g/dL (31-37); MEAN CORPUSCULAR VOLUME 95 fL (79-100); MONO % 7 % (0-9); NEUT % 85 % (31-73); PLATELET COUNT 386 x10^3/uL (140-400); RED BLOOD COUNT 2.56 x10^6/uL (4.30-5.70); RED CELL DISTRIBUTION WIDTH 14.9 % (11.5-14.5); WHITE BLOOD COUNT 7.7 x10^3/uL (4.0-11.0)
[2017-08-08 06:08] LABS: CALCIUM 8.6 mg/dL (8.5-10.1); GFR 32.5; POTASSIUM 4.1 mmol/L (3.5-5.1)
[2017-08-08 08:00] VITALS: BP 110/64
[2017-08-08] MEDS: IPRATRPIUM/ALBUTEROL 0.5/2.5MG 3 ML NEBU. NEB SCH ×2 (08:00→12:14)
--- NOTE | 2017-08-08 08:02 | PDOC ---
Infectious Disease Note Subjective Subjective State is feeling better States had a bleeding tooth in past but no dental pain no or nasal drainage Less SOA ROS ROS GEN: Denies fevers, chills, sweats HEENT: Denies blurred vision, sore throat CV: Denies chest pain RESP: Denies shortness of air, cough GI: Denies n/v/d NEURO: Denies confusion, dizziness MSK: Denies weakness, joint pain/swelling Vital Sign Vital Signs Vital Signs Date Time Temp Pulse Resp B/P (MAP) Pulse Ox O2 Delivery O2 Flow Rate FiO2 08/08/17 05:00 28 96 Nasal Cannula 3.0 08/08/17 03:58 97.7 70 106/52 (70) 97.7 Physical Exam PHYSICAL EXAM GENERAL: NAD, Alert HEENT: PERRL, OC/OP - dried secretions NECK: Supple, no JVD, no LN LUNGS: Clear HEART: S1S2, no gallop, no murmur ABD: Soft, NT, no organomegaly, no rebound, obese Aleman EXT: No edema, no cyanosis GEOLOGICAL SPECIALIST: Alert, oriented x 3, no focal neurologic deficit SKIN: No rash/wounds are dressed without signs of obvious inflammation IV: ok Labs Lab Laboratory Tests Test 08/07/17 11:36 08/07/17 13:09 08/07/17 16:17 08/07/17 17:20 Glucose (Fingerstick) 199 mg/dL (70-99) 226 mg/dL (70-99) 235 mg/dL (70-99) Hemoglobin 7.6 g/dL (13.0-17.5) Test 08/07/17 17:46 08/07/17 21:47 08/08/17 05:20 Glucose (Fingerstick) 201 mg/dL (70-99) 231 mg/dL (70-99) White Blood Count 7.7 x10^3/uL (4.0-11.0) Red Blood Count 2.56 x10^6/uL (4.30-5.70) Hemoglobin 8.0 g/dL (13.0-17.5) Hematocrit 24.4 % (39.0-53.0) Mean Corpuscular Volume 95 fL (79-100) Mean Corpuscular Hemoglobin 31 pg (25-35) Mean Corpuscular Hemoglobin Concent 33 g/dL (31-37) Red Cell Distribution Width 14.9 % (11.5-14.5) Platelet Count 386 x10^3/uL (140-400) Neutrophils (%) (Auto) 85 % (31-73) Lymphocytes (%) (Auto) 6 % (24-48) Monocytes (%) (Auto) 7 % (0-9) Eosinophils (%) (Auto) 2 % (0-3) Basophils (%) (Auto) 0 % (0-3) Neutrophils # (Auto) 6.5 x10^3uL (1.8-7.7) Lymphocytes # (Auto) 0.5 x10^3/uL (1.0-4.8) Monocytes # (Auto) 0.5 x10^3/uL (0.0-1.1) Eosinophils # (Auto) 0.1 x10^3/uL (0.0-0.7) Basophils # (Auto) 0.0 x10^3/uL (0.0-0.2) Sodium Level 144 mmol/L (136-145) Potassium Level 4.1 mmol/L (3.5-5.1) Chloride Level 105 mmol/L (98-107) Carbon Dioxide Level 35 mmol/L (21-32) Anion Gap 4 (6-14) Blood Urea Nitrogen 116 mg/dL (8-26) Creatinine 2.0 mg/dL (0.7-1.3) Estimated GFR (Cockcroft-Gault) 32.5 Glucose Level 168 mg/dL (70-99) Calcium Level 8.6 mg/dL (8.5-10.1) Objective Assessment Leukocytosis POA now s/p solumedrol times one 08/05. better C-diff + 08/06 ? Sepsis 10/22 08/05 - POA Presumptive MRSA likely skin/wound source. ECHO - no gross veg seen MRSA + screen Anemia with uremia CHF with tachypnea -better AMY - persistent uremia Afib Plan Plan of Care Discont zyvox Repeat Blood cults Add Daptomycin given AMY Cont po Vanc F/u labs and cults GI consult given anemia and Uremia plus dried bloody secretions in oral cavity EDIS BREWER MD Aug 08, 2017 08:02
--- NOTE | 2017-08-08 08:24 | PDOC ---
SUBJECTIVE ROS AMY/ CKD III/ IV Doigna nd feeling a little better today CVS: no Orthopnea, no CP RESP: no SOB, no MILLS GI: no Nausea, no Vomiting : no Dysuria, no Urgency OBJECTIVE Vital Signs Vital Signs Date Time Temp Pulse Resp B/P (MAP) Pulse Ox O2 Delivery O2 Flow Rate FiO2 08/08/17 08:00 97 Nasal Cannula 3.0 08/08/17 05:00 28 08/08/17 03:58 97.7 70 106/52 (70) 97.7 PHYSICAL EXAM Physical Exam General Appearance: Awake Alert Oriented x 3 In no resp Distress Eyes: VIsion Unchanged Conjunctiva Normal EN: No EN Drainage Mucous Memb. moist Neck: no JVD + JVP Supple no Thyromegaly - thick neck CVS: S1 S2 no Murmur No Gallop No Rub + Edema Resp: no Rales no Rhonchi no Acc. Muscle use; dec AE in Rt base GI: BS +ve NO Bruit Non Tender Non Distended - obese : no CVA tenderness; no Suprapubic Tenderness Assessment & Plan ARF ? VMN from p-Afib, ? asso with Bacteremia and combined Sys + [place] CHF (as diagnosed at [facility]) Current FLuid and E-lyte status does not necessitate emergent need for Dialysis. Will re-evaluate for Dialysis in am . BUN / Creat improved CKD III - Creat was down to 1.3 at [facility] once (fluid status NA then) - has been 1.8ish in Oct of this year. combined Sys + [place] CHF (as diagnosed at [facility]) - ECHO done here noted to have significant PUlm HTN edema - suspect due to Pulm HTN and hypoalbuminemia; IV ALb as ordered Sev HypoAlbuminemia - UA noted - Check Ratio for proteinuria ? CHF on CXR - BUN Creat ratio suggest pre-renal state vs ? GI BLeed Anemia: check Iron, May need Epogen Transfuse as needed. HTN: Current BP meds reviewed. See orders for changes. defer to Cardiology to optimize from afib standpoint Hematuria - presumed due to h/o Pr Ca/ sanchez trauma and anticoag - US noted- non -revealing currenlty Discussed Plan of Care and prognosis with Pt COMMENT/RELEVANT DATA Meds Current Medications Medications (Trade) Dose Ordered Sig/Meghana Start Time Stop Time Status Last Admin Dose Admin Acetaminophen (Tylenol) 650 mg PRN Q6HRS PRN 08/06/17 11:15 08/07/17 16:44 650 MG Acetaminophen/ Hydrocodone Bitart (Lortab 10/325) 1 tab PRN Q6HRS PRN 08/06/17 11:15 08/08/17 03:57 1 TAB Acetaminophen/ Hydrocodone Bitart (Lortab 7.5/325) 1 tab PRN Q6HRS PRN 08/06/17 09:45 08/06/17 10:22 1 TAB Albumin Human 100 ml @ 100 mls/hr 1X ONCE 08/07/17 11:30 08/07/17 12:29 DC 08/07/17 11:38 100 MLS/HR Albuterol/ Ipratropium (Duoneb) 3 ml RTQID 08/06/17 12:00 08/08/17 08:00 3 ML Amiodarone HCl (Cordarone) 200 mg DAILY 08/06/17 12:00 08/07/17 11:02 200 MG Apixaban (Eliquis) 2.5 mg BID 08/06/17 21:00 UNV Atorvastatin Calcium (Lipitor) 80 mg QHS 08/06/17 21:00 08/07/17 20:26 80 MG Azithromycin 250 ml @ 250 mls/hr 1X ONCE 08/05/17 17:15 08/05/17 18:14 DC 08/05/17 18:53 250 MLS/HR Azithromycin 500 mg/Sodium Chloride 250 ml @ 250 mls/hr 1X ONCE 08/05/17 17:00 08/05/17 17:59 UNV Benzonatate (Tessalon Perle) 200 mg [id number] 08/06/17 14:00 08/07/17 20:24 200 MG Bisacodyl (Dulcolax Supp) 10 mg PRN DAILY PRN 08/06/17 11:15 Ceftriaxone Sodium 1 gm/ Sodium Chloride 50 ml @ 100 mls/hr 1X ONCE 08/05/17 17:00 08/05/17 17:29 UNV Ceftriaxone Sodium 50 ml @ 100 mls/hr 1X ONCE 08/05/17 17:15 08/05/17 17:44 DC 08/05/17 17:30 100 MLS/HR Daptomycin 770 mg/ Sodium Chloride 50 ml @ 100 mls/hr Q24H 10/19/17 07:45 UNV Dextrose (Dextrose 50%-Water Syringe) 12.5 gm PRN Q15MIN PRN 08/06/17 12:15 Docusate Sodium (Colace) 100 mg PRN DAILY PRN 08/05/17 23:00 Enoxaparin Sodium (Lovenox 120mg Syringe) 120 mg 1X ONCE 08/05/17 18:30 08/05/17 18:31 DC 08/05/17 18:50 120 MG Famotidine (Pepcid) 20 mg DAILY 08/08/17 09:00 Fenofibrate (Lofibra) 134 mg QHS 08/06/17 21:00 08/07/17 20:25 134 MG Fentanyl Citrate (Fentanyl 2ml Vial) 50 mcg PRN Q1HR PRN 08/05/17 18:15 08/06/17 18:14 DC Ferrous Sulfate (Feosol) 325 mg TID 08/06/17 14:00 08/07/17 20:25 325 MG Fluticasone Propionate (Flonase) 2 spray DAILY 08/06/17 12:00 08/07/17 11:42 2 SPRAY Furosemide (Lasix) 40 mg DAILY 08/07/17 09:00 Hydralazine HCl (Apresoline) 10 mg QID 08/06/17 14:00 08/06/17 14:00 DC Info (Anti-Coagulation Monitoring By Pharmacy) 1 each PRN DAILY PRN 08/07/17 08:00 08/07/17 09:54 1 EACH Insulin Aspart (NovoLOG) 0-9 UNITS QID 08/06/17 17:00 08/07/17 21:53 3 UNITS Linagliptin (Tradjenta) 5 mg DAILY 08/06/17 12:00 08/07/17 11:03 5 MG Linezolid 300 ml @ 300 mls/hr Q12HR 08/06/17 09:00 08/08/17 07:53 DC 08/07/17 20:27 300 MLS/HR Lubiprostone (Amitiza) 24 mcg [id number] 08/06/17 12:00 08/07/17 16:15 24 MCG Magnesium Hydroxide (Milk Of Magnesia) 2,400 mg DAILY PRN 08/06/17 11:15 Methylprednisolone Sodium Succinate (SOLU-Medrol 125MG VIAL) 125 mg 1X ONCE 08/05/17 17:00 08/05/17 17:01 DC 08/05/17 17:25 125 MG Metolazone (Zaroxolyn) 2.5 mg DAILY 08/06/17 12:00 08/07/17 11:02 2.5 MG Metronidazole 100 ml @ 100 mls/hr Q8HRS 08/06/17 22:00 08/07/17 07:19 DC 08/07/17 05:40 100 MLS/HR Non-Formulary Medication 100 unit QID 08/06/17 13:00 UNV Ondansetron HCl (Zofran) 4 mg PRN Q8HRS PRN 08/05/17 18:15 08/06/17 18:14 DC Pioglitazone HCl (Actos) 30 mg DAILY 08/06/17 12:00 08/06/17 12:26 DC Piperacillin Sod/ Tazobactam Sod (Zosyn Per Pharmacy) 1 each PRN DAILY PRN 08/05/17 23:00 08/06/17 07:35 DC Piperacillin Sod/ Tazobactam Sod 3.375 gm/Sodium Chloride 50 ml @ 100 mls/hr Q6HRS 08/06/17 00:00 08/07/17 07:19 DC 08/07/17 05:40 100 MLS/HR Polyethylene Glycol (miraLAX PACKET) 17 gm PRN DAILY PRN 08/05/17 23:00 Potassium Chloride (Klor-Con) 10 meq [id number] 08/06/17 12:00 08/07/17 11:03 10 MEQ Sacubitril/ Valsartan (Entresto 24 Mg-26 Mg) 1 tab DAILY 08/06/17 13:00 08/06/17 13:00 DC Senna/Docusate Sodium (Senna Plus) 1 tab DAILY PRN 08/06/17 11:15 Sodium Chloride (Normal Saline Flush) 10 ml QSHIFT PRN 08/05/17 18:15 Sodium Chloride (Saline Mist Nasal) 1 joseph PRN Q1HR PRN 08/06/17 16:30 08/07/17 11:18 1 JOSEPH Vancomycin HCl 125 mg [id number] 08/07/17 09:00 08/07/17 20:27 125 MG Vancomycin HCl (Vanco Per Pharmacy) 1 each PRN DAILY PRN 08/05/17 23:00 08/06/17 08:02 DC 08/06/17 01:23 1 EACH Vancomycin HCl 2 gm/Sodium Chloride 500 ml @ 250 mls/hr Q24H 08/06/17 23:00 08/06/17 23:00 DC Vitamin D (Vitamin D3) 5,000 unit DAILY 08/07/17 09:00 08/07/17 11:03 5,000 UNIT Lab Laboratory Tests Test 08/07/17 11:36 08/07/17 13:09 08/07/17 16:17 08/07/17 17:20 Glucose (Fingerstick) 199 mg/dL (70-99) 226 mg/dL (70-99) 235 mg/dL (70-99) Hemoglobin 7.6 g/dL (13.0-17.5) Test 08/07/17 17:46 08/07/17 21:47 08/08/17 05:20 Glucose (Fingerstick) 201 mg/dL (70-99) 231 mg/dL (70-99) White Blood Count 7.7 x10^3/uL (4.0-11.0) Red Blood Count 2.56 x10^6/uL (4.30-5.70) Hemoglobin 8.0 g/dL (13.0-17.5) Hematocrit 24.4 % (39.0-53.0) Mean Corpuscular Volume 95 fL (79-100) Mean Corpuscular Hemoglobin 31 pg (25-35) Mean Corpuscular Hemoglobin Concent 33 g/dL (31-37) Red Cell Distribution Width 14.9 % (11.5-14.5) Platelet Count 386 x10^3/uL (140-400) Neutrophils (%) (Auto) 85 % (31-73) Lymphocytes (%) (Auto) 6 % (24-48) Monocytes (%) (Auto) 7 % (0-9) Eosinophils (%) (Auto) 2 % (0-3) Basophils (%) (Auto) 0 % (0-3) Neutrophils # (Auto) 6.5 x10^3uL (1.8-7.7) Lymphocytes # (Auto) 0.5 x10^3/uL (1.0-4.8) Monocytes # (Auto) 0.5 x10^3/uL (0.0-1.1) Eosinophils # (Auto) 0.1 x10^3/uL (0.0-0.7) Basophils # (Auto) 0.0 x10^3/uL (0.0-0.2) Sodium Level 144 mmol/L (136-145) Potassium Level 4.1 mmol/L (3.5-5.1) Chloride Level 105 mmol/L (98-107) Carbon Dioxide Level 35 mmol/L (21-32) Anion Gap 4 (6-14) Blood Urea Nitrogen 116 mg/dL (8-26) Creatinine 2.0 mg/dL (0.7-1.3) Estimated GFR (Cockcroft-Gault) 32.5 Glucose Level 168 mg/dL (70-99) Calcium Level 8.6 mg/dL (8.5-10.1) Other IMPRESSION: 1. Portable visualization the left kidney. No clear solid masses. CT could further evaluate if there is persistent concern. No hydronephrosis bilaterally. 2. Hepatomegaly. KARISSA MCKNIHGT MD Aug 08, 2017 08:24
[2017-08-08] MEDS: POLYETHYLENE GLYCOL 3350 17 GM PACKET. PO SCH (08:45)
[2017-08-08] MEDS: VANCOMYCIN 125 MG/2.5 ML ORAL SOLUTION. PO SCH ×2 (08:58→12:18)
[2017-08-08] MEDS: LINAGLIPTIN 5 MG TABLET PO SCH (08:59)
[2017-08-08] MEDS: POTASSIUM CHLORIDE 10 MEQ TABLET.ER. PO SCH (08:59)
[2017-08-08] MEDS: metOLazone 2.5 MG TABLET PO SCH (08:59)
[2017-08-08] MEDS: ALBUMIN HUMAN 25% 100 ML IV SCH ×2 (08:59→13:53)
[2017-08-08] MEDS: FUROSEMIDE 40 MG/4 ML VIAL. IVP SCH (08:59)
[2017-08-08] MEDS: APIXABAN 5 MG TABLET. PO SCH (08:59)
[2017-08-08] MEDS ORDERED: DAPTOMYCIN IV SCH (09:00)
[2017-08-08] MEDS: FERROUS SULFATE 325 MG TABLET. PO SCH ×2 (09:00→12:18)
[2017-08-08] MEDS: DOCUSATE SODIUM 100 MG CAPSULE. PO SCH (09:00)
[2017-08-08] MEDS: CHOLECALCIFEROL (VITAMIN D3) 5,000 UNIT CAPSULE PO SCH (09:00)
[2017-08-08] MEDS: AMIODARONE HCL 200 MG TABLET. PO SCH (09:00)
[2017-08-08] MEDS ORDERED: FAMOTIDINE 20 MG TABLET. PO SCH (09:00)
[2017-08-08] MEDS ORDERED: NORMAL SALINE IV SCH (09:00)
[2017-08-08] MEDS: BENZONATATE 100 MG CAPSULE. PO SCH ×2 (09:01→13:53)
[2017-08-08] MEDS: LUBIPROSTONE 8 MCG CAPSULE PO SCH (09:03)
[2017-08-08] MEDS: SODIUM CHLORIDE 0.65% NASAL SPRAY 45ML BOTTLE. NS PRN (09:05)
[2017-08-08] MEDS: FLUTICASONE 50MCG/NASAL SPRAY 16GM BOTTLE. NS SCH (09:06)
[2017-08-08] MEDS: INSULIN ASPART 300 UNITS/3 ML INSULN.PEN SQ SCH ×2 (09:06→12:28)
--- NOTE | 2017-08-08 10:22 | PDOC2 ---
GI CONSULT Reason For Consult: Anemia, uremia, dried bloody secretions HPI: HPI: 76 y/o male admitted w/ resp failure/CHF w/ leukocytosis and possible sepsis, also AMY. Noted w/ normocytic anemia on Eliquis; Hgb stable in 7-8 range (8 today). BUN elevated 116-124 range, Cr 2s. Staff has not witnessed bleeding, other notes suggests some concern w/ bloody secretions. On PO vanco for C Diff. H/o prostate cancer; around the time of prostatectomy thinks had EGD and colonoscopy, recalls no significant findings. Currently w/o GI complaints. PMH: PMH: HTN, HLD, CHF, cardiomyopathy, A Fib, pulmonary hypertension, prostate cancer ( prostatectomy and radiation), OA, CKD, DM, right rotator cuff repair, appendectomy, cataract extraction, ventral hernia repair w/ mesh Social History: Smoke: No ALCOHOL: none Drugs: None ROS: GEN: Denies fevers, chills, sweats HEENT: Denies blurred vision, sore throat CV: Denies chest pain RESP: +SOA GI: Per HPI : Denies hematuria, dysuria ENDO: Denies weight changes NEURO: Denies confusion, dizziness MSK: +weakness SKIN: Denies jaundice, pruritus Vitals: Vitals: Vital Signs Date Time Temp Pulse Resp B/P (MAP) Pulse Ox O2 Delivery O2 Flow Rate FiO2 08/08/17 09:00 70 106/52 08/08/17 08:00 97 Nasal Cannula 3.0 08/08/17 05:00 28 08/08/17 03:58 97.7 97.7 Labs: Labs: Laboratory Tests Test 08/07/17 11:36 08/07/17 13:09 08/07/17 16:17 08/07/17 17:20 Glucose (Fingerstick) 199 mg/dL (70-99) 226 mg/dL (70-99) 235 mg/dL (70-99) Hemoglobin 7.6 g/dL (13.0-17.5) Test 08/07/17 17:46 08/07/17 21:47 08/08/17 05:20 Glucose (Fingerstick) 201 mg/dL (70-99) 231 mg/dL (70-99) White Blood Count 7.7 x10^3/uL (4.0-11.0) Red Blood Count 2.56 x10^6/uL (4.30-5.70) Hemoglobin 8.0 g/dL (13.0-17.5) Hematocrit 24.4 % (39.0-53.0) Mean Corpuscular Volume 95 fL (79-100) Mean Corpuscular Hemoglobin 31 pg (25-35) Mean Corpuscular Hemoglobin Concent 33 g/dL (31-37) Red Cell Distribution Width 14.9 % (11.5-14.5) Platelet Count 386 x10^3/uL (140-400) Neutrophils (%) (Auto) 85 % (31-73) Lymphocytes (%) (Auto) 6 % (24-48) Monocytes (%) (Auto) 7 % (0-9) Eosinophils (%) (Auto) 2 % (0-3) Basophils (%) (Auto) 0 % (0-3) Neutrophils # (Auto) 6.5 x10^3uL (1.8-7.7) Lymphocytes # (Auto) 0.5 x10^3/uL (1.0-4.8) Monocytes # (Auto) 0.5 x10^3/uL (0.0-1.1) Eosinophils # (Auto) 0.1 x10^3/uL (0.0-0.7) Basophils # (Auto) 0.0 x10^3/uL (0.0-0.2) Sodium Level 144 mmol/L (136-145) Potassium Level 4.1 mmol/L (3.5-5.1) Chloride Level 105 mmol/L (98-107) Carbon Dioxide Level 35 mmol/L (21-32) Anion Gap 4 (6-14) Blood Urea Nitrogen 116 mg/dL (8-26) Creatinine 2.0 mg/dL (0.7-1.3) Estimated GFR (Cockcroft-Gault) 32.5 Glucose Level 168 mg/dL (70-99) Calcium Level 8.6 mg/dL (8.5-10.1) Allergies: Coded Allergies: simvastatin (Verified Allergy, Severe, mouth swelling, 04/14/14) I S O L A T I O N *CONTACT* (Verified Allergy, Unknown, 08/07/17) mrsa/C.diff sitagliptin phosphate (Verified Adverse Reaction, Severe, renal dysfunction, 08/07/17) Medications: Current Medications Medications (Trade) Dose Ordered Sig/Meghana Route PRN Reason Start Time Stop Time Status Last Admin Dose Admin Famotidine (Pepcid) 20 mg DAILY PO 08/08/17 09:00 08/08/17 09:01 Albumin Human 100 ml @ 100 mls/hr 1X ONCE IV 08/07/17 11:30 08/07/17 12:29 DC 08/07/17 11:38 Albumin Human 100 ml @ 100 mls/hr TID IV 08/08/17 09:00 08/09/17 21:59 08/08/17 08:59 Imaging: Imaging: CXR 08/05/17 Impression: 1. Findings concerning for CHF. 2. Left pleural effusion with associated atelectasis and/ or infiltrate also suspected. VQ scan IMPRESSION: 1. Limited exam due to termination of perfusion imaging. On single anterior projection perfusion image, an obvious mismatch perfusion defect is not seen. 2. There is evidence of air trapping in the left lung. CXR 08/06/17 Impression: Slight interval improvement in central vascular congestion. Otherwise stable findings of congestive heart failure. BLE US IMPRESSION: 1. No evidence of deep venous thrombosis. CXR 08/07/17 Impression: Stable appearance of the chest including cardiomegaly, central vascular congestion, probable interstitial edema, and a small to moderate left effusion. Renal US IMPRESSION: 1. Portable visualization the left kidney. No clear solid masses. CT could further evaluate if there is persistent concern. No hydronephrosis bilaterally. 2. Hepatomegaly. PE: GEN: NAD HEENT: Atraumatic, PERRL LUNGS: nasal cannula, diminished HEART: RR ABD: NABS, S/ND/NT, obese EXTREMITY: BLE edema SKIN: No rashes, no jaundice NEURO/PSYCH: A & O 3 A/P: A/P: Resp failure, CHF, A Fib -on Eliquis Leukocytosis ?sepsis AMY/CKD Normocytic anemia, uremia -Hgb stable in 7-8 range, BUN 116-124 w/ Cr in 2s -on PO iron -recalls fairly recent EGD/colonoscopy C Diff -on PO vanc H/o prostate cancer -- Tentative EGD tomorrow a.m. if resp status improves. Start PPI. Note on Amitiza - if loose stools w/ C Diff, probably should hold this. FILIBERTO PRICE Aug 08, 2017 10:22
--- NOTE | 2017-08-08 11:05 | PDOC ---
CARDIO Progress Notes Date and Time Date of Service 08/08/17 Time of Evaluation 1055 Subjective Subjective: No Chest Pain, No Palpitations, No Dizziness, Other (less SOA) Vitals Vitals Vital Signs Date Time Temp Pulse Resp B/P (MAP) Pulse Ox O2 Delivery O2 Flow Rate FiO2 08/08/17 09:00 70 106/52 08/08/17 08:00 97 Nasal Cannula 3.0 08/08/17 05:00 28 08/08/17 03:58 97.7 97.7 Weight Weight [ ] Laboratory Labs Laboratory Tests Test 08/07/17 11:36 08/07/17 13:09 08/07/17 16:17 08/07/17 17:20 Glucose (Fingerstick) 199 mg/dL (70-99) 226 mg/dL (70-99) 235 mg/dL (70-99) Hemoglobin 7.6 g/dL (13.0-17.5) Test 08/07/17 17:46 08/07/17 21:47 08/08/17 05:20 Glucose (Fingerstick) 201 mg/dL (70-99) 231 mg/dL (70-99) White Blood Count 7.7 x10^3/uL (4.0-11.0) Red Blood Count 2.56 x10^6/uL (4.30-5.70) Hemoglobin 8.0 g/dL (13.0-17.5) Hematocrit 24.4 % (39.0-53.0) Mean Corpuscular Volume 95 fL (79-100) Mean Corpuscular Hemoglobin 31 pg (25-35) Mean Corpuscular Hemoglobin Concent 33 g/dL (31-37) Red Cell Distribution Width 14.9 % (11.5-14.5) Platelet Count 386 x10^3/uL (140-400) Neutrophils (%) (Auto) 85 % (31-73) Lymphocytes (%) (Auto) 6 % (24-48) Monocytes (%) (Auto) 7 % (0-9) Eosinophils (%) (Auto) 2 % (0-3) Basophils (%) (Auto) 0 % (0-3) Neutrophils # (Auto) 6.5 x10^3uL (1.8-7.7) Lymphocytes # (Auto) 0.5 x10^3/uL (1.0-4.8) Monocytes # (Auto) 0.5 x10^3/uL (0.0-1.1) Eosinophils # (Auto) 0.1 x10^3/uL (0.0-0.7) Basophils # (Auto) 0.0 x10^3/uL (0.0-0.2) Sodium Level 144 mmol/L (136-145) Potassium Level 4.1 mmol/L (3.5-5.1) Chloride Level 105 mmol/L (98-107) Carbon Dioxide Level 35 mmol/L (21-32) Anion Gap 4 (6-14) Blood Urea Nitrogen 116 mg/dL (8-26) Creatinine 2.0 mg/dL (0.7-1.3) Estimated GFR (Cockcroft-Gault) 32.5 Glucose Level 168 mg/dL (70-99) Calcium Level 8.6 mg/dL (8.5-10.1) Microbiology Micro Microbiology 08/05/17 Blood Culture - Final, Complete 08/05/17 Blood Culture Result 1 (FABIO) - Final, Complete 08/05/17 Antimicrobic Susceptibility - Final, Complete 08/05/17 Urine Culture - Final, Complete 08/05/17 Urine Culture Result 1 (FABIO) - Final, Complete Physical Exam HEENT: Neck Supple W Full Motion Chest: Symmetric LUNGS: Other (diminished bases with faint crackles) Heart: S1S2, RRR, murmurs (distant heart tones) Abdomen: Soft N/T, Other (obese) Extremities: Other (-2+ bilateral LE edema ) Neurology: alert, oriented, follow commands Assessment Assessment 1. Acute on chronic diastolic CHF; improved with diuresis. Echo showed normal LV systolic function and moderate to severe pulm hypertension. Continue diuresis as BP allows. 2. Leukocytosis with possible sepsis: continue IV antibiotic therapy as per ID. 3. 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 Severe protein malnutrition 5. PAFIB: s/p recent cardioversion at [facility]. Presently in SR with PACs. Continue Amiodarone for rhythm maintenance. Eliquis for stroke prophylaxis unless GI bleed is noted. No gross hematuria or hematochezia noted. Possible EGD in am. 6. HTN: low-normotensive. Improved with albumin 7. DM2/HLP: statin 8. Anemia: Hgb stable at 8.0. RACIEL BEE APRN Aug 08, 2017 11:05
[2017-08-08 11:43] VITALS: BP 123/50
[2017-08-08 15:10] VITALS: BP 110/43
[2017-08-08] MEDS ORDERED: PANTOPRAZOLE 40 MG TABLET.DR. PO SCH (16:30)
--- NOTE | 2017-08-08 17:15 | PDOC ---
PROGRESS NOTES Subjective Subjective He c/o being hungry when I saw him around 10.30 AM. Objective Objective Vital Signs Date Time Temp Pulse Resp B/P (MAP) Pulse Ox O2 Delivery O2 Flow Rate FiO2 08/08/17 15:10 97.6 70 30 110/43 (65) 92 Nasal Cannula 3.0 97.6 Physical Exam Physical Exam He is supine in bed and continues with generalized muscle weakness,more so of upper extremities,especially of right rotator cuff muscles and painfully limited shoulder joint ROM. Assessment Assessment Problems Medical Problems: (1) Anemia Status: Acute (2) Dyspnea Status: Acute (3) Fever Status: Acute (4) Hyperkalemia Status: Acute (5) Leukocytosis Status: Acute (6) Renal insufficiency Status: Acute Plan Plan of Care To continue present physical and occupational therapy follow up as tolerated. Comment Review of Relevant I have reviewed the following items marlon (where applicable) has been applied. Labs Laboratory Tests Test 08/06/17 17:36 08/06/17 20:42 08/07/17 05:15 08/07/17 11:36 Glucose (Fingerstick) 246 mg/dL (70-99) 209 mg/dL (70-99) 199 mg/dL (70-99) White Blood Count 7.6 x10^3/uL (4.0-11.0) Red Blood Count 2.47 x10^6/uL (4.30-5.70) Hemoglobin 7.8 g/dL (13.0-17.5) Hematocrit 23.0 % (39.0-53.0) Mean Corpuscular Volume 93 fL (79-100) Mean Corpuscular Hemoglobin 32 pg (25-35) Mean Corpuscular Hemoglobin Concent 34 g/dL (31-37) Red Cell Distribution Width 14.7 % (11.5-14.5) Platelet Count 416 x10^3/uL (140-400) Neutrophils (%) (Auto) 86 % (31-73) Lymphocytes (%) (Auto) 8 % (24-48) Monocytes (%) (Auto) 6 % (0-9) Eosinophils (%) (Auto) 0 % (0-3) Basophils (%) (Auto) 0 % (0-3) Neutrophils # (Auto) 6.5 x10^3uL (1.8-7.7) Lymphocytes # (Auto) 0.6 x10^3/uL (1.0-4.8) Monocytes # (Auto) 0.5 x10^3/uL (0.0-1.1) Eosinophils # (Auto) 0.0 x10^3/uL (0.0-0.7) Basophils # (Auto) 0.0 x10^3/uL (0.0-0.2) Sodium Level 143 mmol/L (136-145) Potassium Level 4.2 mmol/L (3.5-5.1) Chloride Level 104 mmol/L (98-107) Carbon Dioxide Level 33 mmol/L (21-32) Anion Gap 6 (6-14) Blood Urea Nitrogen 128 mg/dL (8-26) Creatinine 2.5 mg/dL (0.7-1.3) Estimated GFR (Cockcroft-Gault) 25.1 BUN/Creatinine Ratio 51 (6-20) Glucose Level 196 mg/dL (70-99) Calcium Level 8.5 mg/dL (8.5-10.1) Total Bilirubin 1.0 mg/dL (0.2-1.0) Aspartate Amino Transf (AST/SGOT) 26 U/L (15-37) Alanine Aminotransferase (ALT/SGPT) 24 U/L (16-63) Alkaline Phosphatase 64 U/L (46-116) Total Protein 6.1 g/dL (6.4-8.2) Albumin 1.9 g/dL (3.4-5.0) Albumin/Globulin Ratio 0.5 (1.0-1.7) Test 08/07/17 13:09 08/07/17 16:17 08/07/17 17:20 08/07/17 17:46 Glucose (Fingerstick) 226 mg/dL (70-99) 235 mg/dL (70-99) 201 mg/dL (70-99) Hemoglobin 7.6 g/dL (13.0-17.5) Test 08/07/17 21:47 08/08/17 05:20 08/08/17 11:39 Glucose (Fingerstick) 231 mg/dL (70-99) 154 mg/dL (70-99) White Blood Count 7.7 x10^3/uL (4.0-11.0) Red Blood Count 2.56 x10^6/uL (4.30-5.70) Hemoglobin 8.0 g/dL (13.0-17.5) Hematocrit 24.4 % (39.0-53.0) Mean Corpuscular Volume 95 fL (79-100) Mean Corpuscular Hemoglobin 31 pg (25-35) Mean Corpuscular Hemoglobin Concent 33 g/dL (31-37) Red Cell Distribution Width 14.9 % (11.5-14.5) Platelet Count 386 x10^3/uL (140-400) Neutrophils (%) (Auto) 85 % (31-73) Lymphocytes (%) (Auto) 6 % (24-48) Monocytes (%) (Auto) 7 % (0-9) Eosinophils (%) (Auto) 2 % (0-3) Basophils (%) (Auto) 0 % (0-3) Neutrophils # (Auto) 6.5 x10^3uL (1.8-7.7) Lymphocytes # (Auto) 0.5 x10^3/uL (1.0-4.8) Monocytes # (Auto) 0.5 x10^3/uL (0.0-1.1) Eosinophils # (Auto) 0.1 x10^3/uL (0.0-0.7) Basophils # (Auto) 0.0 x10^3/uL (0.0-0.2) Sodium Level 144 mmol/L (136-145) Potassium Level 4.1 mmol/L (3.5-5.1) Chloride Level 105 mmol/L (98-107) Carbon Dioxide Level 35 mmol/L (21-32) Anion Gap 4 (6-14) Blood Urea Nitrogen 116 mg/dL (8-26) Creatinine 2.0 mg/dL (0.7-1.3) Estimated GFR (Cockcroft-Gault) 32.5 Glucose Level 168 mg/dL (70-99) Calcium Level 8.6 mg/dL (8.5-10.1) Laboratory Tests Test 08/07/17 17:20 08/07/17 17:46 08/07/17 21:47 08/08/17 05:20 Hemoglobin 7.6 g/dL (13.0-17.5) 8.0 g/dL (13.0-17.5) Glucose (Fingerstick) 201 mg/dL (70-99) 231 mg/dL (70-99) White Blood Count 7.7 x10^3/uL (4.0-11.0) Red Blood Count 2.56 x10^6/uL (4.30-5.70) Hematocrit 24.4 % (39.0-53.0) Mean Corpuscular Volume 95 fL (79-100) Mean Corpuscular Hemoglobin 31 pg (25-35) Mean Corpuscular Hemoglobin Concent 33 g/dL (31-37) Red Cell Distribution Width 14.9 % (11.5-14.5) Platelet Count 386 x10^3/uL (140-400) Neutrophils (%) (Auto) 85 % (31-73) Lymphocytes (%) (Auto) 6 % (24-48) Monocytes (%) (Auto) 7 % (0-9) Eosinophils (%) (Auto) 2 % (0-3) Basophils (%) (Auto) 0 % (0-3) Neutrophils # (Auto) 6.5 x10^3uL (1.8-7.7) Lymphocytes # (Auto) 0.5 x10^3/uL (1.0-4.8) Monocytes # (Auto) 0.5 x10^3/uL (0.0-1.1) Eosinophils # (Auto) 0.1 x10^3/uL (0.0-0.7) Basophils # (Auto) 0.0 x10^3/uL (0.0-0.2) Sodium Level 144 mmol/L (136-145) Potassium Level 4.1 mmol/L (3.5-5.1) Chloride Level 105 mmol/L (98-107) Carbon Dioxide Level 35 mmol/L (21-32) Anion Gap 4 (6-14) Blood Urea Nitrogen 116 mg/dL (8-26) Creatinine 2.0 mg/dL (0.7-1.3) Estimated GFR (Cockcroft-Gault) 32.5 Glucose Level 168 mg/dL (70-99) Calcium Level 8.6 mg/dL (8.5-10.1) Test 08/08/17 11:39 Glucose (Fingerstick) 154 mg/dL (70-99) Microbiology 08/05/17 Blood Culture - Final, Complete 08/05/17 Blood Culture Result 1 (FABIO) - Final, Complete 08/05/17 Antimicrobic Susceptibility - Final, Complete 08/05/17 Urine Culture - Final, Complete 08/05/17 Urine Culture Result 1 (FABIO) - Final, Complete Medications Current Medications Sodium Chloride (Normal Saline Flush) 10 ml 1X ONCE IV Last administered on 08:01; Start 08/05/17 at 17:00; Stop 08/05/17 at 17:01; Status DC Sodium Chloride 1,000 ml @ 1,000 mls/hr Q1H IV Last administered on 17:22; Start 08/05/17 at 16:55; Stop 08/05/17 at 17:54; Status DC Albuterol/ Ipratropium (Duoneb) 3 ml 1X ONCE NEB Last administered on 17:17; Start 08/05/17 at 17:00; Stop 08/05/17 at 17:01; Status DC Methylprednisolone Sodium Succinate (SOLU-Medrol 125MG VIAL) 125 mg 1X ONCE IV Last administered on 08/05/17 17:25; Start 08/05/17 at 17:00; Stop at 17:01; Status DC Acetaminophen (Tylenol) 650 mg 1X ONCE PO Last administered on 08/05/17 17: 27; Start 08/05/17 at 17:00; Stop 08/05/17 at 17:01; Status DC Ceftriaxone Sodium 1 gm/ Sodium Chloride 50 ml @ 100 mls/hr 1X ONCE IV ; Start 08/05/17 at 17:00; Stop 08/05/17 at 17:29; Status UNV Azithromycin 500 mg/Sodium Chloride 250 ml @ 250 mls/hr 1X ONCE IV ; Start at 17:00; Stop 08/05/17 at 17:59; Status UNV Azithromycin 250 ml @ 250 mls/hr 1X ONCE IV Last administered on 08/05/17 18:53; Start 08/05/17 at 17:15; Stop 08/05/17 at 18:14; Status DC Ceftriaxone Sodium 50 ml @ 100 mls/hr 1X ONCE IV Last administered on 17:30; Start 08/05/17 at 17:15; Stop 08/05/17 at 17:44; Status DC Ondansetron HCl (Zofran) 4 mg PRN Q8HRS PRN IV NAUSEA/VOMITING; Start at 18:15; Stop 08/06/17 at 18:14; Status DC Fentanyl Citrate (Fentanyl 2ml Vial) 50 mcg PRN Q1HR PRN IV PAIN; Start at 18:15; Stop 08/06/17 at 18:14; Status DC Acetaminophen (Tylenol) 650 mg PRN Q4HRS PRN PO FEVER; Start 08/05/17 at 18:15 ; Stop 08/06/17 at 13:01; Status DC Furosemide (Lasix) 40 mg 1X ONCE IVP Last administered on 08/05/17 18:50; Start 08/05/17 at 18:15; Stop 08/05/17 at 18:16; Status DC Sodium Chloride 1,000 ml @ 1,000 mls/hr Q1H IV Last administered on 21:10; Start 08/05/17 at 18:06; Stop 08/05/17 at 19:05; Status DC Sodium Chloride (Normal Saline Flush) 10 ml QSHIFT PRN IV AFTER MEDS AND BLOOD DRAWS; Start 08/05/17 at 18:15; Stop 08/08/17 at 16:01; Status DC Enoxaparin Sodium (Lovenox 120mg Syringe) 120 mg 1X ONCE SQ Last administered on 08/05/17 18:50; Start 08/05/17 at 18:30; Stop 08/05/17 at 18:31; Status DC Docusate Sodium (Colace) 100 mg DAILY PO Last administered on 08/07/17 11:04 ; Start 08/06/17 at 09:00; Stop 08/08/17 at 16:01; Status DC Docusate Sodium (Colace) 100 mg PRN DAILY PRN PO CONSTIPATION; Start 08/05/17 at 23:00; Stop 08/08/17 at 16:01; Status DC Polyethylene Glycol (miraLAX PACKET) 17 gm DAILY PO ; Start 08/06/17 at 09:00; Stop 08/08/17 at 16:01; Status DC Polyethylene Glycol (miraLAX PACKET) 17 gm PRN DAILY PRN PO CONSTIPATION; Start 08/05/17 at 23:00; Stop 08/08/17 at 16:01; Status DC Piperacillin Sod/ Tazobactam Sod (Zosyn Per Pharmacy) 1 each PRN DAILY PRN MC SEE COMMENTS; Start 08/05/17 at 23:00; Stop 08/06/17 at 07:35; Status DC Vancomycin HCl (Vanco Per Pharmacy) 1 each PRN DAILY PRN MC SEE COMMENTS Last administered on 08/06/17 01:23; Start 08/05/17 at 23:00; Stop 08/06/17 at 08 :02; Status DC Vancomycin HCl 2 gm/Sodium Chloride 500 ml @ 250 mls/hr 1X ONCE IV Last administered on 08/05/17 23:26; Start 08/05/17 at 23:30; Stop 08/06/17 at 01 :29; Status DC Piperacillin Sod/ Tazobactam Sod 3.375 gm/Sodium Chloride 50 ml @ 100 mls/hr Q6HRS IV Last administered on 08/07/17 05:40; Start 08/06/17 at 00:00; Stop 08/07/17 at 07:19; Status DC Vancomycin HCl 2 gm/Sodium Chloride 500 ml @ 250 mls/hr Q24H IV ; Start at 23:00; Stop 08/06/17 at 23:00; Status DC Vancomycin HCl 1 each 1X ONCE MC ; Start 08/07/17 at 22:30; Stop 08/07/17 at 22:30; Status DC Furosemide (Lasix) 40 mg 1X ONCE IVP Last administered on 08/06/17 07:56; Start 08/06/17 at 08:00; Stop 08/06/17 at 08:01; Status DC Linezolid 300 ml @ 300 mls/hr Q12HR IV Last administered on 08/07/17 20:27; Start 08/06/17 at 09:00; Stop 08/08/17 at 07:53; Status DC Acetaminophen/ Hydrocodone Bitart (Lortab 7.5/325) 1 tab PRN Q6HRS PRN PO PAIN Last administered on 08/06/17 10:22; Start 08/06/17 at 09:45; Stop 08/08/17 at 16:01; Status DC Acetaminophen (Tylenol) 650 mg PRN Q6HRS PRN PO MILD PAIN Last administered on 08/07/17 16:44; Start 08/06/17 at 11:15; Stop 08/08/17 at 16:01; Status DC Amiodarone HCl (Cordarone) 200 mg DAILY PO Last administered on 08/08/17 09: 00; Start 08/06/17 at 12:00; Stop 08/08/17 at 16:01; Status DC Apixaban (Eliquis) 5 mg BID PO Last administered on 08/08/17 08:59; Start at 12:00; Stop 08/08/17 at 16:01; Status DC Bisacodyl (Dulcolax Supp) 10 mg PRN DAILY PRN RC CONSTIPATION; Start 08/06/17 at 11:15; Stop 08/08/17 at 16:01; Status DC Famotidine (Pepcid) 20 mg BID PO Last administered on 08/06/17 20:39; Start 08/06/17 at 12:00; Stop 08/07/17 at 09:56; Status DC Ferrous Sulfate (Feosol) 325 mg TID PO Last administered on 08/08/17 12:18; Start 08/06/17 at 14:00; Stop 08/08/17 at 16:01; Status DC Fluticasone Propionate (Flonase) 2 spray DAILY NS Last administered on 09:06; Start 08/06/17 at 12:00; Stop 08/08/17 at 16:01; Status DC Furosemide (Lasix) 40 mg [id number] PO ; Start 08/06/17 at 14:00; Stop 08/06/17 at 14:00; Status DC Furosemide (Lasix) 40 mg DAILY PO ; Start 08/07/17 at 09:00; Status UNV Hydralazine HCl (Apresoline) 10 mg QID PO ; Start 08/06/17 at 14:00; Stop at 14:00; Status DC Acetaminophen/ Hydrocodone Bitart (Lortab 10/325) 1 tab PRN Q6HRS PRN PO PAIN Last administered on 08/08/17 12:18; Start 08/06/17 at 11:15; Stop 08/08/17 at 16:01; Status DC Albuterol/ Ipratropium (Duoneb) 3 ml RTQID NEB Last administered on 08/08/17 12:14; Start 08/06/17 at 12:00; Stop 08/08/17 at 16:01; Status DC Linagliptin (Tradjenta) 5 mg DAILY PO Last administered on 08/08/17 08:59; Start 08/06/17 at 12:00; Stop 08/08/17 at 16:01; Status DC Magnesium Hydroxide (Milk Of Magnesia) 2,400 mg DAILY PRN PO CONSTIPATION; Start 08/06/17 at 11:15; Stop 08/08/17 at 16:01; Status DC Metolazone (Zaroxolyn) 2.5 mg DAILY PO Last administered on 08/08/17 08:59; Start 08/06/17 at 12:00; Stop 08/08/17 at 16:01; Status DC Sacubitril/ Valsartan (Entresto 24 Mg-26 Mg) 1 tab DAILY PO ; Start 08/06/17 at 13:00; Stop 08/06/17 at 13:00; Status DC Senna/Docusate Sodium (Senna Plus) 1 tab DAILY PRN PO CONSTIPATION; Start at 11:15; Stop 08/08/17 at 16:01; Status DC Atorvastatin Calcium (Lipitor) 80 mg QHS PO Last administered on 08/07/17 20: 26; Start 08/06/17 at 21:00; Stop 08/08/17 at 16:01; Status DC Benzonatate (Tessalon Perle) 200 mg [id number] PO Last administered on 08/08/17 13:53; Start 08/06/17 at 14:00; Stop 08/08/17 at 16:01; Status DC Vitamin D (Vitamin D3) 5,000 unit DAILY PO Last administered on 08/08/17 09: 00; Start 08/07/17 at 09:00; Stop 08/08/17 at 16:01; Status DC Fenofibrate (Lofibra) 134 mg QHS PO Last administered on 08/07/17 20:25; Start 08/06/17 at 21:00; Stop 08/08/17 at 16:01; Status DC Non-Formulary Medication 100 unit QID SQ ; Start 08/06/17 at 13:00; Status UNV Lubiprostone (Amitiza) 24 mcg BIDWMEALS PO Last administered on 08/08/17 09: 03; Start 08/06/17 at 12:00; Stop 08/08/17 at 16:01; Status DC Pioglitazone HCl (Actos) 30 mg DAILY PO ; Start 08/06/17 at 12:00; Stop at 12:26; Status DC Potassium Chloride (Klor-Con) 10 meq [id number] PO Last administered on 08:59; Start 08/06/17 at 12:00; Stop 08/08/17 at 16:01; Status DC Insulin Aspart (NovoLOG) 0-9 UNITS QID SQ Last administered on 08/08/17 12:28 ; Start 08/06/17 at 17:00; Stop 08/08/17 at 16:01; Status DC Dextrose (Dextrose 50%-Water Syringe) 12.5 gm PRN Q15MIN PRN IV SEE COMMENTS; Start 08/06/17 at 12:15; Stop 08/08/17 at 16:01; Status DC Apixaban (Eliquis) 2.5 mg BID PO ; Start 08/06/17 at 21:00; Status UNV Albumin Human 100 ml @ 100 mls/hr 1X ONCE IV Last administered on 08/06/17 15:09; Start 08/06/17 at 13:00; Stop 08/06/17 at 13:59; Status DC Furosemide (Lasix) 40 mg 1X ONCE IVP Last administered on 08/06/17 16:18; Start 08/06/17 at 14:00; Stop 08/06/17 at 14:01; Status DC Furosemide (Lasix) 40 mg DAILY IVP Last administered on 08/08/17 08:59; Start 08/07/17 at 09:00; Stop 08/08/17 at 16:01; Status DC Sodium Chloride (Saline Mist Nasal) 1 joseph PRN Q1HR PRN NS NASAL CONGESTION Last administered on 08/08/17 09:05; Start 08/06/17 at 16:30; Stop 08/08/17 at 16:01; Status DC Metronidazole 100 ml @ 100 mls/hr Q8HRS IV Last administered on 08/07/17 05: 40; Start 08/06/17 at 22:00; Stop 08/07/17 at 07:19; Status DC Vancomycin HCl 125 mg [id number] PO Last administered on 08/08/17 12:18; Start 08/07/17 at 09:00; Stop 08/08/17 at 16:01; Status DC Info (Anti-Coagulation Monitoring By Pharmacy) 1 each PRN DAILY PRN MC SEE COMMENTS Last administered on 08/07/17 09:54; Start 08/07/17 at 08:00; Stop 08/08/17 at 16:01; Status DC Famotidine (Pepcid) 20 mg DAILY PO Last administered on 08/08/17 09:01; Start 08/08/17 at 09:00; Stop 08/08/17 at 10:21; Status DC Albumin Human 100 ml @ 100 mls/hr 1X ONCE IV Last administered on 08/07/17 11:38; Start 08/07/17 at 11:30; Stop 08/07/17 at 12:29; Status DC Daptomycin 770 mg/ Sodium Chloride 50 ml @ 100 mls/hr Q24H IV Last administered on 08/08/17 10:42; Start 08/08/17 at 09:00; Stop 08/08/17 at 16 :01; Status DC Albumin Human 100 ml @ 100 mls/hr TID IV Last administered on 08/08/17 13:53 ; Start 08/08/17 at 09:00; Stop 08/08/17 at 16:01; Status DC Pantoprazole Sodium (Protonix) 40 mg BIDAC PO ; Start 08/08/17 at 16:30; Stop 08/08/17 at 16:30; Status DC Ondansetron HCl (Zofran) 4 mg PRN Q6HRS PRN IV NAUSEA/VOMITING; Start at 07:00; Stop 08/09/17 at 07:00; Status DC Fentanyl Citrate (Fentanyl 2ml Vial) 25 mcg PRN Q5MIN PRN IV MILD PAIN; Start 08/09/17 at 07:00; Stop 08/09/17 at 07:00; Status DC Fentanyl Citrate (Fentanyl 2ml Vial) 50 mcg PRN Q5MIN PRN IV MODERATE PAIN; Start 08/09/17 at 07:00; Stop 08/09/17 at 07:00; Status DC Morphine Sulfate 1 mg PRN Q10MIN PRN IV SEVERE PAIN; Start 08/09/17 at 07:00; Stop 08/09/17 at 07:00; Status DC Ringer's Solution 1,000 ml @ 30 mls/hr Q24H IV ; Start 08/09/17 at 07:00; Stop 08/09/17 at 07:00; Status DC Lidocaine HCl (Xylocaine-Mpf 1% Vial) 2 ml PRN 1X PRN ID IV START; Start 08/09 at 07:00; Stop 08/09/17 at 07:00; Status DC Hydromorphone HCl (Dilaudid) 0.5 mg PRN Q10MIN PRN IV SEV PAIN, Second choice; Start 08/09/17 at 07:00; Stop 08/09/17 at 07:00; Status DC Prochlorperazine Edisylate (Compazine) 5 mg PACU PRN PRN IV NAUSEA, MRX1; Start 08/09/17 at 07:00; Stop 08/09/17 at 07:00; Status DC Active Scripts Active Reported Tradjenta (Linagliptin) 5 Mg Tablet 5 Mg PO DAILY Senna Plus Tablet (Sennosides/Docusate Sodium) 1 Each Tablet 1 Each PO DAILY PRN Potassium Chloride 10 Meq Capsule.er 20 Meq PO DAILY Actos (Pioglitazone Hcl) 30 Mg Tablet 1 Tab PO DAILY [place] 10-325 Tablet (Acetaminophen/Hydrocodone Bitart) 1 Each Tablet 1 Tab PO PRN Q6HRS PRN Milk Of Magnesia (Magnesium Hydroxide) 400 Mg/5 Ml Oral.susp 30 Ml PO DAILY PRN Metolazone 2.5 Mg Tablet 2.5 Mg PO DAILY Humalog (Insulin Lispro) 100 Unit/1 Ml Insuln.pen 100 Units SQ QID inject as per sliding scale: if 151-200 = 3; 201-250 = 4; 251-200 = 6; 301-350 = 9; 351-400 = 12; 401+ = 12 and call physician; subq four times a day for DM Hydralazine Hcl 10 Mg Tablet 10 Mg PO QID Furosemide 40 Mg Tablet 40 Mg PO BID Fluticasone Propionate Nasal [place] (Fluticasone Propionate) 16 Gm [place].susp 2 [place] NS DAILY Fleet Enema (Na Phos,M-B/Na Phos,Di-Ba) 133 Ml Enema 118 Ml RC PRN PRN Ferrous Sulfate 325 Mg Tablet 325 Mg PO TID Trilipix (Fenofibric Acid (Choline)) 135 Mg Capsule.dr 135 Mg PO HS Famotidine 20 Mg Tablet 20 Mg PO BID Entresto 24 mg-26 mg Tablet (Sacubitril/Valsartan) 1 Each Tablet 1 Each PO DAILY Duoneb 0.5-3(2.5) Mg/3 Ml (Albuterol/Ipratropium) 3 Ml Ampul.neb 3 Ml NEB QID Dulcolax (Bisacodyl) 10 Mg Supp.rect 10 Mg RC PRN DAILY PRN Ear Wax Drops (Carbamide Peroxide) 15 Ml Drops 15 Ml OT INSTILL 5 DROPS IN BOTH EARS ONE TIME A DAY FOR CERUMEN IMPACTION FOR 4 DAYS. LEAVE IN EAR 5 MINUTES BEFORE TREATING OTHER EAR. Vitamin D (Cholecalciferol (Vitamin D3)) 2,000 Unit Capsule 5,000 Unit PO DAILY Benzonatate 200 Mg Capsule 200 Mg PO TID Eliquis (Apixaban) 5 Mg Tablet 5 Mg PO BID Amiodarone Hcl 200 Mg Tablet 200 Mg PO DAILY Acetaminophen 500 Mg Tablet 650 Mg PO Q4HRS PRN Lipitor (Atorvastatin Calcium) 80 Mg Tablet 80 Mg PO HS Vitals/I & O Vital Sign - Last 24 Hours 08/07/17 08/07/17 08/07/17 08/07/17 18:15 19:31 19:45 20:00 Temp 97.5 97.5 Pulse 84 Resp 39 20 B/P (MAP) 95/52 (66) Pulse Ox 97 95 O2 Delivery Nasal Cannula Nasal Cannula Nasal Cannula Nasal Cannula O2 Flow Rate 3.0 3.0 3.0 3.0 08/07/17 08/08/17 08/08/17 08/08/17 23:59 03:57 03:58 08:00 Temp 98.0 97.7 97.7 98.0 97.7 97.7 Pulse 63 70 70 Resp 26 30 32 32 B/P (MAP) 109/52 (71) 106/52 (70) 110/64 (79) Pulse Ox 94 98 92 92 O2 Delivery Nasal Cannula Nasal Cannula Nasal Cannula Nasal Cannula O2 Flow Rate 4.0 3.0 3.0 3.0 08/08/17 08/08/17 08/08/17 08/08/17 08:00 08:00 09:00 11:43 Temp 97.4 97.4 Pulse 70 66 Resp 34 B/P (MAP) 106/52 123/50 (74) Pulse Ox 97 92 O2 Delivery Nasal Cannula Nasal Cannula Nasal Cannula O2 Flow Rate 3.0 3.0 3.0 08/08/17 08/08/17 08/08/17 08/08/17 12:16 12:18 13:18 15:10 Temp 97.6 97.6 Pulse 70 Resp 22 20 30 B/P (MAP) 110/43 (65) Pulse Ox 95 95 95 92 O2 Delivery Nasal Cannula Nasal Cannula Nasal Cannula Nasal Cannula O2 Flow Rate 3.0 3.0 3.0 3.0 BENNY YANG MD Aug 08, 2017 17:15
[2017-08-09] MEDS ORDERED: IV RINGERS,LACTATED 1000ML 1,000 ML IV SCH (07:00)
[2017-08-09] MEDS ORDERED: MORPHINE SULFATE 2 MG/ML DISP.SYRIN. IV PRN (07:00)
[2017-08-09] MEDS ORDERED: ONDANSETRON PF 4 MG/2 ML VIAL. IV PRN (07:00)
[2017-08-09] MEDS ORDERED: HYDROmorphone 2 MG/ML VIAL IV PRN (07:00)
[2017-08-09] MEDS ORDERED: LIDOCAINE 1% PF 2 ML VIAL. ID PRN (07:00)
[2017-08-09] MEDS ORDERED: fentaNYL PF VIAL 100 MCG/2 ML VIAL IV PRN ×2 (07:00)
[2017-08-09] MEDS ORDERED: PROCHLORPERAZINE 10 MG/2 ML VIAL. IV PRN (07:00)
--- NOTE | 2017-08-09 13:26 | PDOC3 ---
Discharge Summary Visit Information Date of Admission: Aug 05, 2017 Date of Discharge: Aug 08, 2017 Admitting Diagnosis: acute respiratory failure Final Diagnosis 1. Acute on chronic diastolic CHF; improved with diuresis. Echo showed normal LV systolic function and moderate to severe pulm hypertension. Continue diuresis as BP allows. 2. Leukocytosis with possible sepsis: continue IV antibiotic therapy treated for Pneumonia 3. AMY on CKD3; monitor Cr with diuresis 4. Severe protein malnutrition w. obesity, BMI 35 5. PAFIB: s/p recent cardioversion at [facility]. Presently in SR with PACs. Continue Amiodarone for rhythm maintenance. Eliquis for stroke prophylaxis unless GI bleed is noted. No gross hematuria or hematochezia noted. Possible EGD in am. 6. HTN: Improved with albumin 7. DM2/HLP: statin 8. Anemia: NOS Problems Medical Problems: (1) Anemia Status: Acute (2) Dyspnea Status: Acute (3) Fever Status: Acute (4) Hyperkalemia Status: Acute (5) Leukocytosis Status: Acute (6) Renal insufficiency Status: Acute Brief Hospital Course Allergies Allergies Coded Allergies Type Severity Reaction Last Updated Verified simvastatin Allergy Severe mouth swelling 04/14/14 Yes I S O L A T I O N *CONTACT* Allergy Unknown 08/07/17 Yes sitagliptin phosphate Adverse Reaction Severe renal dysfunction 08/07/17 Yes Vital Signs Vital Signs Date Time Temp Pulse Resp B/P (MAP) Pulse Ox O2 Delivery O2 Flow Rate FiO2 08/08/17 15:10 97.6 70 30 110/43 (65) 92 Nasal Cannula 3.0 97.6 Lab Results Laboratory Tests Test 08/07/17 16:17 08/07/17 17:20 08/07/17 17:46 08/07/17 21:47 Glucose (Fingerstick) 235 mg/dL (70-99) 201 mg/dL (70-99) 231 mg/dL (70-99) Hemoglobin 7.6 g/dL (13.0-17.5) Test 08/08/17 05:20 08/08/17 11:39 White Blood Count 7.7 x10^3/uL (4.0-11.0) Red Blood Count 2.56 x10^6/uL (4.30-5.70) Hemoglobin 8.0 g/dL (13.0-17.5) Hematocrit 24.4 % (39.0-53.0) Mean Corpuscular Volume 95 fL (79-100) Mean Corpuscular Hemoglobin 31 pg (25-35) Mean Corpuscular Hemoglobin Concent 33 g/dL (31-37) Red Cell Distribution Width 14.9 % (11.5-14.5) Platelet Count 386 x10^3/uL (140-400) Neutrophils (%) (Auto) 85 % (31-73) Lymphocytes (%) (Auto) 6 % (24-48) Monocytes (%) (Auto) 7 % (0-9) Eosinophils (%) (Auto) 2 % (0-3) Basophils (%) (Auto) 0 % (0-3) Neutrophils # (Auto) 6.5 x10^3uL (1.8-7.7) Lymphocytes # (Auto) 0.5 x10^3/uL (1.0-4.8) Monocytes # (Auto) 0.5 x10^3/uL (0.0-1.1) Eosinophils # (Auto) 0.1 x10^3/uL (0.0-0.7) Basophils # (Auto) 0.0 x10^3/uL (0.0-0.2) Sodium Level 144 mmol/L (136-145) Potassium Level 4.1 mmol/L (3.5-5.1) Chloride Level 105 mmol/L (98-107) Carbon Dioxide Level 35 mmol/L (21-32) Anion Gap 4 (6-14) Blood Urea Nitrogen 116 mg/dL (8-26) Creatinine 2.0 mg/dL (0.7-1.3) Estimated GFR (Cockcroft-Gault) 32.5 Glucose Level 168 mg/dL (70-99) Calcium Level 8.6 mg/dL (8.5-10.1) Glucose (Fingerstick) 154 mg/dL (70-99) Brief Hospital Course Mr. Watkins is a 76 old with recent fall and shoulder injury bilat, was in Skilled, brought to ER, admit to ICU acute dyspnea, hypoxia, distress, treated as sepsis, poss more CHF component ID, PULM, CV followed, broad abx started and taperd, some streaky infiltrate on CXR diuresis imrpoved sx, will monitor closely transfer to LTAC Discharge Information Condition at Discharge: Improved Disposition/Orders: D/C to Another Facility Scheduled Amiodarone Hcl (Amiodarone Hcl), 200 MG PO DAILY, (Reported) Apixaban (Eliquis), 5 MG PO BID, (Reported) Atorvastatin Calcium (Lipitor), 80 MG PO HS, (Reported) Benzonatate (Benzonatate), 200 MG PO TID, (Reported) Cholecalciferol (Vitamin D3) (Vitamin D), 5,000 UNIT PO DAILY, (Reported) Famotidine (Famotidine), 20 MG PO BID, (Reported) Fenofibric Acid (Choline) (Trilipix), 135 MG PO HS, (Reported) Ferrous Sulfate (Ferrous Sulfate), 325 MG PO TID, (Reported) Fluticasone Propionate (Fluticasone Propionate Nasal [place]), 2 SPRAY NS DAILY, ( Reported) Furosemide (Furosemide), 40 MG PO BID, (Reported) Hydralazine Hcl (Hydralazine Hcl), 10 MG PO QID, (Reported) Insulin Lispro (Humalog), 100 UNITS SQ QID, (Reported) Ipratropium/Albuterol Sulfate (Duoneb 0.5-3(2.5) Mg/3 Ml), 3 ML NEB QID, ( Reported) Linagliptin (Tradjenta), 5 MG PO DAILY, (Reported) Metolazone (Metolazone), 2.5 MG PO DAILY, (Reported) Pioglitazone Hcl (Actos), 1 TAB PO DAILY, (Reported) Potassium Chloride (Potassium Chloride), 20 MEQ PO DAILY, (Reported) Sacubitril/Valsartan (Entresto 24 mg-26 mg Tablet), 1 EACH PO DAILY, (Reported) Scheduled PRN Acetaminophen (Acetaminophen), 650 MG PO Q4HRS PRN for MILD PAIN, (Reported) Bisacodyl (Dulcolax), 10 MG RC PRN DAILY PRN for CONSTIPATION, (Reported) Hydrocodone/Apap 10-325 (Fulda 10-325 Tablet), 1 TAB PO PRN Q6HRS PRN for PAIN, (Reported) Magnesium Hydroxide (Milk Of Magnesia), 30 ML PO DAILY PRN for CONSTIPATION, ( Reported) Na Phos,M-B/Na Phos,Di-Ba (Fleet Enema), 118 ML RC PRN PRN for CONSTIPATION, ( Reported) Sennosides/Docusate Sodium (Senna Plus Tablet), 1 EACH PO DAILY PRN for CONSTIPATION, (Reported) Miscellaneous Medications Carbamide Peroxide (Ear Wax Drops), 15 ML OT, (Reported) Discontinued Medications Carbamide Peroxide (Ear Drops), 15 ML OT, (Reported) Discontinued Reason: Duplicate Fenofibric Acid (Choline) (Trilipix), 135 MG PO DAILY, (Reported) Furosemide (Lasix), 1 TAB PO DAILY, (Reported) Discontinued Reason: One time Linagliptin (Tradjenta), 5 MG PO DAILY, (Reported) Lubiprostone (Amitiza), 24 MCG PO BID, (Reported) Discontinued Reason: Not taking Olmesartan/Hydrochlorothiazide (Benicar Hct 40-12.5 Mg Tablet), 1 EACH PO DAILY, (Reported) Pioglitazone Hcl (Actos), 30 MG PO DAILY, (Reported) Patient Instructions Patient Instructions > 30 min face to face to TRUPTI MERCADO MD Aug 09, 2017 13:26
== END 2017-08-08 15:45 | DRG 871 ==
LOC: ER 16:16 → 1 WEST ICU 18:05 → 6 SOUTH 08-08 08:17
PROVIDERS: ADMIT Internal Medicine; ATTEND Internal Medicine
DX: A41.9 Sepsis, unspecified organism (principal); J18.9 Pneumonia, unspecified organism; J96.01 Acute respiratory failure with hypoxia; E43 Unspecified severe protein-calorie malnutrition; I50.43 Acute on chronic combined systolic (congestive) and diastolic (congestive) heart failure; G82.50 Quadriplegia, unspecified; A04.72 Enterocolitis due to Clostridium difficile, not specified as recurrent; N17.9 Acute kidney failure, unspecified; N18.4 Chronic kidney disease, stage 4 (severe); E11.22 Type 2 diabetes mellitus with diabetic chronic kidney disease; E87.5 Hyperkalemia; L03.119 Cellulitis of unspecified part of limb; J98.11 Atelectasis; I13.0 Hypertensive heart and chronic kidney disease with heart failure and stage 1 through stage 4 chronic kidney disease, or unspecified chronic kidney disease; I42.9 Cardiomyopathy, unspecified; J44.0 Chronic obstructive pulmonary disease with (acute) lower respiratory infection; W18.39XA Other fall on same level, initial encounter; I48.0 Paroxysmal atrial fibrillation; D64.9 Anemia, unspecified; Y95 Nosocomial condition; Z68.37 Body mass index [BMI] 37.0-37.9, adult; E66.9 Obesity, unspecified; Z88.8 Allergy status to other drugs, medicaments and biological substances; E78.00 Pure hypercholesterolemia, unspecified; E78.5 Hyperlipidemia, unspecified; G47.33 Obstructive sleep apnea (adult) (pediatric); I27.20 Pulmonary hypertension, unspecified; B95.62 Methicillin resistant Staphylococcus aureus infection as the cause of diseases classified elsewhere; K27.9 Peptic ulcer, site unspecified, unspecified as acute or chronic, without hemorrhage or perforation; R65.20 Severe sepsis without septic shock; M19.90 Unspecified osteoarthritis, unspecified site; M75.00 Adhesive capsulitis of unspecified shoulder; M75.92 Shoulder lesion, unspecified, left shoulder; S43.006A Unspecified dislocation of unspecified shoulder joint, initial encounter; Z79.1 Long term (current) use of non-steroidal anti-inflammatories (NSAID); Z83.3 Family history of diabetes mellitus; Z85.46 Personal history of malignant neoplasm of prostate; Z90.49 Acquired absence of other specified parts of digestive tract; Z90.79 Acquired absence of other genital organ(s); Z91.81 History of falling; Z92.3 Personal history of irradiation; Z98.49 Cataract extraction status, unspecified eye; Y93.89 Activity, other specified; Y92.89 Other specified places as the place of occurrence of the external cause; Y99.8 Other external cause status
CPT/HCPCS: 36415; 36600; 71010; 76770; 78582; 80048; 80053; 80076; 81001; 82553; 82805; 82962; 83605; 83690; 83735; 83880; 84145; 84443; 84484; 85007; 85018; 85025; 85027; 87040; 87086; 87205; 87324; 87641; 87804; 93005; 93306; 93970; 94640; 96365; 96367; 96374; 96375; A9540; A9558; J0456; J0690; J0878; J1650; J1815; J1940; J2020; J2543; J2930; J3370; J3490; J7030; J7040; J7620; P9046; 92526; 92610; 99285-25